=== PATIENT | male | born 1935 | race Caucasian/White ===

== ENCOUNTER 2018-01-02 15:18 | Inpatient (IN) | payer MEDICARE, OTHER ==
--- NOTE | 2018-01-02 15:26 | ED Physician Chart ---
ED Chief Complaint/HPI - Patient Information Date Seen:: 01/02/18 Time Seen:: 15:15 Chief Complaint:: Dyspnea History of Present Illness:: onset x one day of dyspnea, RUDD, orthopnea, and diaphoresis; pt denies trauma, H /As, S/T, neck pain, C/P, Abd. Pain, A/N/V/D/C, fever, chills, or urinary s/s Historian:: Patient, EMS Review:: Nurse's Note Reviewed, Old Chart Reviewed, EMS run form Reviewed ED Review of Systems - Review of Systems General/Constitutional: No fever, No chills, No weight loss, No weakness, No diaphoresis, No edema, No loss of appetite Skin: No skin lesions, No rash, No bruising Head: No headache, No light-headedness Eyes: No loss of vision, No pain, No diplopia ENT: No earache, No nasal drainage, No sore throat, No tinnitus Neck: No neck pain, No swelling, No thyromegaly, No stiffness, No mass noted Cardio Vascular: Chest pain, Palpitations, PND, orthopnea, edema Pulmonary: SOB, Cough, No sputum, Wheezing GI: No nausea, No vomiting, No diarrhea, No pain, No melena, No hematochezia, No constipation, No hematemesis G/U: No dysuria, No frequency, No hematuria, No nacturia Musculoskeletal: No bone or joint pain, No back pain, No muscle pain Endocrine: No polyuria, No polydipsia Psychiatric: No prior psych history, No depression, No anxiety, No suicidal ideation, No homicidal ideation, No auditory hallucination, No visual hallucination Hematopoietic: No bruising, No lymphadenopathy Allergic/Immuno: No urticaria, No angioedema Neurological: No syncope, No focal symptoms, No weakness, No paresthesia, No headache, No seizure, No dizziness, No confusion, No vertigo ED Past Medical History - Past Medical History Past Medical History: HTN, DM, CAD, CHF, Asthma/COPD, Dyslipidemia Family History: Heart disease, Diabetes Melitus, HTN Social History: Smoker, No Alcohol, No Drug Use, Surgical History: None Psychiatricy History: None Medication: Reviewed ED Physical Exam - Physical Examination General/Constitutional: Awake, Well-developed, well-nourished, Alert, No distress, GCS 15, Non-toxic appearing, Ambulatory Head: Atraumatic Eyes: Lids, conjuctiva normal, PERRL, EOMI Skin: Nl inspection, No rash, No skin lesions, No ecchymosis, Well hydrated, No lymphadenopathy ENMT: External ears, nose nl, TM canals nl, Nasal exam nl, Lips, teeth, gums nl , Oropharynx nl, Tonsils nl Neck: Nontender, Full ROM w/o pain, No JVD, No nuchal rigidity, No bruit, No mass, No stridor Respiratory: Nl effort/Exclusion Other Respiratory comments:: Lungs: + Rales and Rhonchi Cardio Vascular: RRR, No murmur, gallop, rubs, NL S1 S2, Carotid/Femoral/Distal pulses equal bilaterally GI: No tenderness/rebounding/guarding, No organomegaly, No hernia, Normal BS's, Nondistended, No mass/bruits, No McBurney tenderness, Rectum exam nl : No CVA tenderness Extremities: No tenderness or effusion, Full ROM, normal strength in all extremities, No edema, Normal digits & nails Neuro/Psych: Alert/oriented, DTR's symmetric, Normal sensory exam, Normal motor strength, Judgement/insight normal, Mood normal, Normal gait, No focal deficits Misc: Normal back, No paraspinal tenderness ED Labs/Radiology/EKG Results - Lab Results Comments:: WBC: 25.7; H/H: 10.5/30.5; Na+: 126; K+: 5.7; BUN: 74; Cr: 5.5; LA: 2.67 - Radiology Results Comments:: CXR: + CM; + Infiltrate; + CHF - EKG Interpretations EKG Time:: 15:27 Rate & Rhythm: 116; ST Comments:: Pacemaker Rhythm; non-specific st-t changes ED Septic Shock - . Is Septic Shock (SBP<90, OR Lactate>4 mmol\L) present?: No ED Reassessment (Disposition) - Reassessment Reassessment Condition:: Improved - Diagnosis Diagnosis:: Dx; Dyspnea; COPD; CHF; Pulmonary Edema; Sepsis; PNA; Leukocytosis; Hyperkalemia ; Hyponatremia; ESRD; Anemia; Hyperventilation - Aftercare/Follow up Instructions Aftercare/Follow-Up Instructions:: Counseled pt regarding lab results/diagnosis & need follow up, Counseled pt & family regarding lab results/diagnosis & need follow up - Patient Disposition Discharge/Transfer:: Acute Care w/in this hosp Accepting Physician:: Dr. Cabrera Time Called:: 1819 Time Responded:: 18:20 Admitted to:: ICU Spoke to:: Dr. Cabrera Admitting Medical Physician:: Dr. Cabrera Condition at Disposition:: Stable, Improved
[2018-01-02] MEDS ORDERED: Morphine Sulfate 2 mg/mL 1mL Syr IV STA (15:29)
[2018-01-02] MEDS ORDERED: NITROGLYCERIN OINT 2% 1 INCH PACKET TP STA (15:29)
[2018-01-02 15:54] LABS: EOSINOPHILE ABSOLUTE 0.1 Th/cmm (0.1-0.4); HEMATOCRIT 30.5 % (41.0-60); HEMOGLOBIN 10.5 gm/dL (12-16); LYMPHOCYTE ABSOLUTE 0.6 Th/cmm (1.5-3.0); MANUAL DIFF REQUIRED? YES; MEAN CELL VOLUME 89.3 fl (80-99); MEAN CORPUSCULAR HEMOGLOBIN 30.6 pg (27.0-31.0); MEAN CORPUSCULAR HGB CONC 34.3 pg (28.0-36.0); MEAN PLATELET VOLUME 7.6 fl; MONOCYTE ABSOLUTE 0.4 Th/cmm (0.3-1.0); NEUTROPHILE ABSOLUTE 24.6 Th/cmm (1.8-8.0); PLATELET COUNT 236 Th/cmm (150-400); RED BLOOD COUNT 3.42 Mil/cmm (3.80-5.80); RED CELL DISTRIBUTION WIDTH 13.6 % (11.5-20.0)
[2018-01-02 16:04] LABS: WHITE BLOOD COUNT 25.7 Th/cmm (4.8-10.8)
[2018-01-02 16:09] LABS: pH 7.49 (7.35-7.45)
[2018-01-02 16:13] LABS: ALB/GLOB RATIO 0.8 (1.0-1.8); ALBUMIN 2.8 gm/dL (4.2-5.5); ALKALINE PHOSPHATASE 70 U/L (34-104); ANION GAP 19.4 (7.0-16.0); BILIRUBIN,TOTAL 0.6 mg/dL (0.3-1.0); BUN - UREA NITROGEN 74 mg/dL (7-25); CALCIUM SERUM 8.2 mg/dL (8.6-10.3); CARBON DIOXIDE 24.3 mEq/L (21.0-31.0); CHLORIDE 88 mEq/L (98-107); CHOLESTEROL 113 mg/dL (<200); CREATININE KINASE 41 U/L (30-223); GLUCOSE 128 mg/dL (70-105); HDL -HIGH DENSITY LIPOPROTEIN 36 mg/dL (23-92); POTASSIUM SERUM 5.7 mEq/L (3.5-5.1); SGOT 16 U/L (13-39); SGPT/ALT 11 U/L (7-52); SODIUM SERUM 126 mEq/L (136-145); TOTAL PROTEIN,SERUM 6.2 gm/dL (6.0-8.3); TRIGLYCERIDES 96 mg/dL (<150)
[2018-01-02 16:25] LABS: CREATININE - SERUM 5.5 mg/dL (0.7-1.3)
[2018-01-02 16:31] LABS: BAND NEUTROPHILE 6 % (0-10); BASOPHIL 0 % (0-3); EOSINOPHIL 0 % (0-5); LYMPHOCYTE 4 % (20-50); MONOCYTE 1 % (2-10); NEUTROPHILS 89 % (40-80); TOTAL CELLS COUNTED 100
[2018-01-02 16:32] LABS: PLATELET ESTIMATE ADEQUATE (NORMAL)
[2018-01-02 16:35] LABS: DDIMER QUANT > 5000 ng/mL (100-400)
[2018-01-02] MEDS ORDERED: Levofloxacin 500mg/100mL 500 MG/100 ML BAG IV ONE ×2 (16:39→17:23)
[2018-01-02] MEDS ORDERED: Morphine Sulfate 4 mg/mL 1mL Syr ONE (17:23)
[2018-01-02] MEDS ORDERED: NITROGLYCERIN OINT 2% 1 INCH PACKET TP ONE (17:25)
[2018-01-02 18:22] LABS: INR 1.07 (0.5-1.4); PROTHROMBIN TIME (TEST) 11.1 SECONDS (9.5-11.5)
[2018-01-02] MEDS ORDERED: Potassium Chloride 40 MEQ, Lidocaine 1% 20mL Vial 25 MG in Sodium Chloride 0.9% 250 ML IV PRN (19:12)
[2018-01-02] MEDS ORDERED: Potassium Chloride 20 mEq ER Tab PO PRN (19:12)
[2018-01-02] MEDS ORDERED: Morphine Sulfate 2 mg/mL 1mL Syr IVP PRN (19:12)
[2018-01-02] MEDS ORDERED: Mag Sulfate 2gm/50mL Premix 2 GM/50 ML BAG IV PRN (19:12)
[2018-01-02] MEDS ORDERED: Albuterol Nebulizer 2.5mg/3mL HHN PRN (19:13)
[2018-01-02] MEDS ORDERED: D5-0.9%NS 1,000 ML IV SCH (19:15)
[2018-01-02] MEDS ORDERED: Norepinephrine 4 mg/4mL Vial IV ONE (20:21)
[2018-01-02] MEDS ORDERED: Piperacillin Sodium/Tazobact 2.25 gm Vial IV ONE (21:13)
[2018-01-02] MEDS: Piperacillin/Tazobact 2.25 gm in 0.9% NS 50 ML IV SCH (21:16)
[2018-01-03] MEDS: NIFEdipine 30 mg ER Tab PO SCH ×2 (00:23→22:31)
[2018-01-03] MEDS ORDERED: Norepinephrine 4 mg/4mL Vial IV ONE ×2 (03:50→04:08)
[2018-01-03 05:11] LABS: MANUAL DIFF REQUIRED? YES
[2018-01-03 05:23] LABS: HEMATOCRIT 30.4 % (41.0-60); HEMOGLOBIN 10.6 gm/dL (12-16); MEAN CELL VOLUME 88.7 fl (80-99); MEAN CORPUSCULAR HEMOGLOBIN 30.8 pg (27.0-31.0); MEAN CORPUSCULAR HGB CONC 34.7 pg (28.0-36.0); MEAN PLATELET VOLUME 8.1 fl; PLATELET COUNT 237 Th/cmm (150-400); RED BLOOD COUNT 3.43 Mil/cmm (3.80-5.80); RED CELL DISTRIBUTION WIDTH 13.8 % (11.5-20.0)
[2018-01-03 05:35] LABS: ANION GAP 15.9 (7.0-16.0); BUN - UREA NITROGEN 71 mg/dL (7-25); CHLORIDE 93 mEq/L (98-107); GLUCOSE 165 mg/dL (70-105); POTASSIUM SERUM 4.9 mEq/L (3.5-5.1); SODIUM SERUM 126 mEq/L (136-145)
[2018-01-03 05:37] LABS: CREATININE - SERUM 4.9 mg/dL (0.7-1.3)
[2018-01-03 06:07] LABS: BAND NEUTROPHILE 3 % (0-10); LYMPHOCYTE 6 % (20-50); MONOCYTE 1 % (2-10); NEUTROPHILS 90 % (40-80); PLATELET ESTIMATE ADEQUATE (NORMAL); TOTAL CELLS COUNTED 100
[2018-01-03] MEDS ORDERED: Piperacillin Sodium/Tazobact 2.25 gm Vial IV ONE (06:27)
[2018-01-03] MEDS: Piperacillin/Tazobact 2.25 gm in 0.9% NS 50 ML IV SCH ×3 (06:48→22:33)
--- NOTE | 2018-01-03 08:19 | Diagnostic Imaging Report ---
Exam: Portable chest x-ray HISTORY: Chest pain Findings: Portable examination of the chest at 1537 hours reviewed, the study correlated with the previous CT examination of the chest over 01/02/2018 demonstrates some pulmonary scarring bilaterally with superimposed pneumonia. There is no evidence for cardiomegaly. The aortic arch calcified. The costophrenic angles are clear. Distended bowel under the diaphragm appreciated bilaterally. Bony thorax remarkable for degenerative osteopenia. Left-sided pacemaker is noted. IMPRESSION 1. Bilateral interstitial infiltrates question of superimposed fibrosis and scarring follow-up exam is recommended.
--- NOTE | 2018-01-03 08:33 | Diagnostic Imaging Report ---
Exam: Ultrasound examination deep venous circulation lower extremities. HISTORY: DVT Findings: Real-time ultrasound exam of the lower extremities performed multiple planes utilizing color Doppler technique. The study demonstrates normal compressibility and augmentation of deep venous system throughout. IMPRESSION: No evidence of deep venous thrombosis lower extremities bilaterally.
--- NOTE | 2018-01-03 08:47 | Diagnostic Imaging Report ---
CT Chest without IV contrast HISTORY: Shortness of breath, rule out PE COMPARISON: Chest x-ray performed earlier the same day. Technique: Axial images were obtained from the base of the neck to the upper abdomen without IV contrast. Reconstructions are made. Total DLP 191, CTD I 6.5 Findings: Exam is nondiagnostic for pulmonary embolus as IV contrast was not administered. Assessment of the mediastinum is also limited due to lack of IV contrast. Left chest wall pacer apparatus is noted with leads in the region of the right atrium and right ventricle. Diffuse atherosclerotic vascular disease is noted. A retroesophageal aberrant right subclavian artery is noted. Heart size is normal. No evidence of pericardial effusion. Low lung volumes are noted. The lung baldwin demonstrate extensive interstitial lung disease with pulmonary fibrosis and areas of peripheral honeycombing. Areas of bronchiectasis are also noted. Small nodular opacities are seen throughout both lungs. No pleural effusions Degenerative changes of the spine are noted. Old sternal fracture is noted. IMPRESSION: Extensive chronic lung changes and pulmonary fibrosis with areas of honeycombing and bronchiectasis. Superimposed acute infiltrate cannot be completely excluded. Small sub-CM nodular opacities of the lungs probably related to underlying infectious or inflammatory process. Atherosclerotic vascular disease. Pacemaker. 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 If there is continued concern for pulmonary embolus either CT pulmonary angiogram study or, if the patient has renal failure, nuclear medicine VQ scan may be obtained for further assessment.
--- NOTE | 2018-01-03 08:53 | Diagnostic Imaging Report ---
CT abdomen and pelvis without intravenous contrast Indication: Abdominal pain Comparison: CT chest the same day, Technique: Axial images were obtained from the lung bases to the bilateral proximal femurs without IV contrast. Coronal reconstructions were made. total DLP: 512, CTDI10.1 FINDINGS: Assessment of solid organs is limited due to lack of IV contrast. Interposed bowel large bowel loops are seen underlying the hemidiaphragms. No evidence of focal hepatic lesions. No radiopaque gallstones identified. No focal splenic lesions. No focal pancreatic or adrenal lesions. 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 Bilateral perinephric inflammatory changes are seen with small amount of fluid tracking bilateral retroperitoneal regions inferiorly. There is mild bilateral hydronephrosis. No radiopaque renal stones identified. Severely distended urinary bladder is seen with pockets of gas along the anterior aspect. Enlarged prostate gland is noted measuring 6.7 x 5 cm. Glez catheter is seen with balloon malpositioned within the prostatic urethra. Mild inflammatory changes of the posterior pelvis including the presacral region is seen with trace free fluid in this region also noted. There is moderate stool throughout the colon. Nonspecific gas-filled loops of bowel are noted. Appendix is not visualized. Trace free fluid is seen surrounding the urinary bladder. Small fat-containing right inguinal hernia is noted. Diffuse atherosclerotic vascular disease is noted with tortuous aorta. Advanced degenerative changes spine noted. Degenerate changes of the pelvis are also noted. Anasarca noted. IMPRESSION: Malpositioned Glez catheter balloon with balloon inflated in the prostatic urethra. Recommend removal. There is associated severe distention of the urinary bladder with small pockets of gas along the anterior aspect of the urinary bladder. Enlarged prostate gland, please correlate with clinical history. Mild bilateral hydronephrosis and bilateral perinephric inflammatory changes likely related to obstructive process and distended urinary bladder secondary to patient's malpositioned Glez catheter. Surrounding inflammatory changes and trace fluid is seen along the bilateral retroperitoneal regions tracking inferiorly. Small amount of free fluid the pelvis and mild inflammatory changes of presacral region. 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 Please with clinical findings and old exams. If indicated short-term follow-up exams with IV contrast may be obtained for further assessment. Anasarca.
--- NOTE | 2018-01-03 11:52 | History & Physical ---
ADMIT DATE: 01/02/2018 CHIEF COMPLAINT: Lethargy, weakness, and decreased blood pressure. HISTORY OF PRESENT ILLNESS: The patient is a pleasant 82-year-old male. He is a patient [facility] at [facility]. He was found to have severe weakness yesterday along with fevers, decreased appetite and very low blood pressure, 911 was called and he presented to the ER where he was found to have acute respiratory failure and septic shock. PAST MEDICAL HISTORY: Significant for constipation, COPD, hypertension, dyslipidemia, and BPH. SOCIAL HISTORY: No history of alcohol, tobacco, or drug abuse. FAMILY HISTORY: Noncontributory. ALLERGIES: No known drug allergies. SURGICAL HISTORY: No recent surgeries. REVIEW OF SYSTEMS: GENERAL: Positive recent fatigue, decreased appetite and overall weakness. HEENT: No recent head trauma; change in vision, taste, hearing, or smell. Oral: No recent pain or discharge. NECK: No recent tracheal deviation. ABDOMEN: Positive for recent distention, but markedly improved after Glez was inserted. GENITOURINARY: Positive for recent Glez catheter and severe urinary retention. EXTREMITIES: No recent edema. PSYCHIATRIC: No history of psychosis or hallucinations. ENDOCRINE: No history of diabetes or hypothyroidism. SKIN: No recent rashes. RESPIRATORY: Positive history of COPD and increased shortness of breath recently. PHYSICAL EXAMINATION: VITAL SIGNS: Latest temperature was 98.8 degrees, heart rate is 91, respirations are 18, blood pressure 132/68, and currently in no pain. GENERAL: No acute distress. He is awake, pleasant, slightly confused. HEENT: No acute issues. NECK: Trachea is midline. No JVD. CARDIOVASCULAR: Regular rate and rhythm. ABDOMEN: Slightly distended, but bowel sounds are present. His distention has significantly improved from yesterday. GENITOURINARY: He had 1.2 liters of urine output after the Glez was reinserted. He is feeling much better now. No hematuria. EXTREMITIES: No edema. RESPIRATORY: Decreased breath sounds bilaterally with rales and congestion. NEUROLOGIC: No evidence of acute stroke or seizure activity. MUSCULOSKELETAL: Decreased muscle strength in lower extremities. LABORATORY DATA AND DIAGNOSTIC STUDIES: CT of the chest, abdomen and pelvis shows pulmonary fibrosis with possible pneumonia; malpositioned Glez catheter with balloon in the prostatic urethra, recommended removal; markedly enlarged prostate gland and a distended bladder, pockets of gas in the bladder, clinical correlation. Bilateral venous Doppler shows no DVT. Sodium 126, potassium 4.9, chloride of 93, bicarb 22, BUN 71, creatinine 4.9, glucose 165, lactic acid went from 2.67-1.38, calcium is 8.0. White count is 32, hemoglobin is 10.6, and platelet count is 237,000. ASSESSMENT: 1. Septic shock. 2. Aspiration pneumonia. 3. Vasomotor nephropathy. 4. Anemia of chronic illness. 5. Acute urinary retention. 6. Acute respiratory failure. 7. Hyponatremia. PLAN: The patient had Glez removed and re-inserted and was able to get 1.2 liters of urine out. Dr. Blount has been consulted for Urology and he is on vancomycin and Zosyn. The patient's lactic acid has normalized; however, the white count is still very elevated. ID and Pulmonary has been consulted. CT of the chest has been done along with a bilateral venous Doppler as well. He is on heparin for deep venous thrombosis prophylaxis. Continue breathing treatments. He is on Levophed drip right now. Prognosis is guarded. He is in the ICU. JOB# [id number]
--- NOTE | 2018-01-03 14:04 | Consultation ---
Consult Note - Consult Note Service Date: 01/03/18 Referring Physician: Dayan Choudhary Consult Note: PHYSICIAN Consultation Note: Date of Admission: 01/02/18 Purpose of Consultation: sepsis. septic shock. Chief Complaint: Patient EDUARDO SAMAYOA was admitted to location Intensive Care Unit with PULMONARY EDEMA PNEUMONIA, HYPONATREMIA, ACUTE RIKY. History of Present Illness: 82-year-old male with history of COPD, hypertension , BPH, dyslipidemia brought to the ER from nursing facility for fever, chills and associated hypotension. On initial evaluation, his temperature was 98.6 Fahrenheit and WBC count was 25,700. He was found to have pneumonia with septic shock. Vancomycin IV and Zosyn was started. Patient has received Levaquin also. Infectious disease consultation was called. Blood culture, at the time of admission grew gram-positive cocci. ID consultation was called for further antibiotic management. Past Medical History: COPD, hypertension, BPH, dyslipidemia. Allergies Allergy/AdvReac Type Severity Reaction Status Date / Time No Known Allergies Allergy Verified 01/02/18 16:47 Vital Signs Temp 98.8 F 01/03/18 04:00 Pulse 85 01/03/18 07:27 Resp 20 01/03/18 07:27 BP 132/68 01/03/18 06:30 Pulse Ox 97 01/03/18 07:27 Intake & Output 01/02/18 01/03/18 01/03/18 18:59 06:59 18:59 Intake Total 1100.786 Output Total 2900 Balance -1799.214 Weight (lbs) 68.266 kg Intake: Intake, IV Amount 1050.786 D5-0.9%Ns 1,000 ml @ 75 676.25 mls/hr IV .[id number] [facility] Rx #:[id number] Levofloxacin 500mg/100mL 100 500 mg In 100 ml @ 100 mls/hr IV X1 ONE Rx#: [id number] Norepinephrine 4 mg In 224.536 Dextrose 5% 250 ml @ 8 MCG/MIN 30.48 mls/hr IV TITR PRN Rx#:[id number] Piperacillin Sodium/ 50 Tazobact 2.25 gm In Sodium Chloride 0.9% 50 ml @ 100 mls/hr IV Q8HR [facility] Rx#:[id number] Oral 50 Output: Urine 2900 Other: # Bowel Movements 0 Weight Source Bedscale Laboratory Results - last 24 hr 01/02/18 01/03/18 01/03/18 23:27 00:32 05:03 WBC 32.0 H* RBC 3.43 L Hgb 10.6 L Hct 30.4 L MCV 88.7 MCH 30.8 MCHC Differential 34.7 RDW 13.8 Plt Count 237 MPV 8.1 Band Neutrophils % 3 Neutrophils (Manual) 90 H Lymphocytes 6 L Monocytes 1 L Platelet Estimate ADEQUATE Sodium Potassium Chloride Carbon Dioxide Anion Gap BUN Creatinine Est GFR ( Amer) Est GFR (Non-Af Amer) BUN/Creatinine Ratio Glucose POC Glucose 179 H Whole Bld Lactic Acid 2.14 H* Calcium 01/03/18 01/03/18 05:03 05:03 WBC RBC Hgb Hct MCV MCH MCHC Differential RDW Plt Count MPV Band Neutrophils % Neutrophils (Manual) Lymphocytes Monocytes Platelet Estimate Sodium 126 L Potassium 4.9 Chloride 93 L Carbon Dioxide 22.0 Anion Gap 15.9 BUN 71 H Creatinine 4.9 H* Est GFR ( Amer) TNP Est GFR (Non-Af Amer) TNP BUN/Creatinine Ratio 14.5 Glucose 165 H POC Glucose Whole Bld Lactic Acid 1.38 Calcium 8.0 L Home Medication Medication Instructions Recorded Type Acetaminophen [Tylenol] 650 mg PO Q6HR PRN 01/02/18 History Albuterol Nebulizer 2.5mg/3mL 2.5 mg IH Q6HR PRN 01/02/18 History [Albuterol Neb UD*] Albuterol Sulfate [Proair Hfa] 2 puff IH Q6H PRN 01/02/18 History Ascorbic Acid [Vitamin C] 500 mg PO DAILY 01/02/18 History Docusate Sodium [Dok] 100 mg PO DAILY 01/02/18 History Losartan Potassium [Cozaar] 100 mg PO DAILY 01/02/18 History Magnesium Hydroxide [Milk of 30 ml PO Q24H PRN 01/02/18 History Magnesia] Metoprolol Succinate 50 mg PO DAILY 01/02/18 History Multivitamin w/ Minerals 1 tab PO DAILY 01/02/18 History [Theragran M] Nifedipine [Nifedipine ER] 30 mg PO Q24H 01/02/18 History Phenyleph/Pramoxin/Glycr/W.pet 1 unit RC Q12H PRN 01/02/18 History [Preparation H Cream] Pravastatin Sodium 20 mg PO HS 01/02/18 History Tamsulosin [Flomax] 0.4 mg PO HS 01/02/18 History Current Medications Generic Name Dose Route Start Last Admin Trade Name Freq PRN Reason Stop Dose Admin Acetaminophen 650 mg 01/02/18 19:12 Tylenol PO 03/03/18 19:11 Q6H PRN HEADACHE/TEMP ABOVE 100F Albuterol Sulfate 2.5 mg 01/03/18 18:00 Albuterol 2.5mg/3ml Neb Ud HHN 03/04/18 17:59 Q6HR [facility]ID[facility] Budesonide 0.5 mg 01/03/18 19:00 Pulmicort HHN 03/04/18 18:59 BIDRT [facility] Heparin Sodium (Porcine) 5,000 units 01/02/18 21:00 01/03/18 09:00 Heparin SUBQ 03/03/18 20:59 5,000 units Q12HR [facility] Administration Dextrose/Sodium Chloride 1,000 mls @ 75 mls/hr 01/02/18 19:15 01/03/18 06:26 D5-0.9%Ns IV 03/03/18 19:14 75 mls/hr .[id number] [facility] Infusion Potassium Chloride 40 meq/ 272.5 mls @ 68 mls/hr 01/02/18 19:12 Lidocaine HCl 25 mg/ Sodium IV 03/03/18 19:11 Chloride DAILY PRN k level less than 3.2 Magnesium Sulfate 2 gm in 50 mls @ 25 mls/hr 01/02/18 19:12 Magnesium Sulfate Premix IV 03/03/18 19:11 DAILY PRN Magnesium level less than 1.6 Piperacillin Sod/Tazobactam 50 mls @ 100 mls/hr 01/02/18 21:00 01/03/18 06:48 Sod 2.25 gm/ Sodium Chloride IV 03/03/18 20:59 100 mls/hr Q8HR LID[facility] Administration Norepinephrine Bitartrate 4 mg 254 mls @ 30.48 mls/hr 01/02/18 20:16 03:56 / Dextrose IV 03/03/18 20:15 8 mcg/min TITR PRN 30.48 mls/hr BP MAINTENANCE (PER PROTOCOL) Administration Protocol 8 MCG/MIN Lorazepam 1 mg 01/02/18 19:12 Ativan IVP 05/27/18 19:11 Q4HR PRN Anxiety Protocol Magnesium Oxide 400 mg 01/02/18 19:12 Mag-Oxide PO 03/03/18 19:11 BID PRN Mg less than 1.9 Miscellaneous 1 ea 01/02/18 19:11 Vancomycin Iv Per Pharmacy 03/03/18 19:10 PRN PRN PROTOCOL Miscellaneous 1 ea 01/02/18 19:12 Zosyn Iv Per Pharmacy 03/03/18 19:11 PRN PRN PROTOCOL Morphine Sulfate 1 mg 01/02/18 19:12 Morphine IVP 03/03/18 19:11 Q4HR PRN Severe Pain Nifedipine 30 mg 01/02/18 19:15 01/03/18 00:23 Procardia Xl PO 03/03/18 19:14 Not Given Q24H [facility] Ondansetron HCl 4 mg 01/02/18 19:12 Zofran IVP 03/03/18 19:11 Q6H PRN Nausea / Vomiting Potassium Chloride 40 meq 01/02/18 19:12 Klor-Con PO 03/03/18 19:11 DAILY PRN k level less than 3.5 Simvastatin 10 mg 01/02/18 21:00 01/03/18 00:17 Zocor PO 03/03/18 20:59 10 mg HS L[facility] Administration Tamsulosin HCl 0.4 mg 01/02/18 21:00 01/03/18 00:19 Flomax PO 03/03/18 20:59 0.4 mg HS [facility] Administration Zolpidem Tartrate 10 mg 01/02/18 19:12 Ambien PO 03/03/18 19:11 HS PRN Insomnia Review of Systems: A 12 point ROS was reviewed with the pertinent positive and negatives noted in the HPI. Gen.: Head developed fever at nursing facility. Currently a febrile. Generalized with this patient. HEENT: Denies any diplopia photophobia also throat. Respiratory: Patient denies any cough or shortness of breath. Denies any wheezing. CVS: Patient denies chest pain, palpitation. GI: Patient denies any nausea, vomiting, diarrhea. : Patient denies any dysuria, hematuria. 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 Skin: No hives nor rash. Social History Lives at nursing facility. Smoking Status Never smoker Physical Exam: General: Comfortable, not in acute distress. Well-nourished well-developed. HEENT: Head: Normocephalic, atraumatic. Oral cavity: Moist, pink tongue. Eyes : Pupil PERRLA, EOMI. There is no pallor and no icterus. Neck: Supple, no JVD, and is no use of accessory neck muscles. Cardio: S1 and S2 within normal limits regular rhythm no murmur no gallop. Respiratory: Vesicular breath sound, no crackles no wheezing. Abdominal: Soft, nontender, nondistended, bowel sounds present. Genital/Urinary: Deferred. Glez catheter draining clear urine. Extremities: No cyanosis, no clubbing, no edema. Neurological: Alert, awake, oriented 3. There is no focal neuro deficit. Assessment: 1. Septic shock. Severe sepsis. The lactic acidosis and hypotension. Sepsis. 2. Pneumonia. 3. UTI. Complicated with hydronephrosis. Pyelonephritis. 4. Staphylococcal sepsis. 5. BPH. 6. Pulmonary fibrosis [as per CT scan chest report]. 7. History of hypertension, currently hypotensive receiving Levophed. 8. History of COPD. 9. History of dyslipidemia. 10. Acute renal failure, likely obstructive uropathy. Plan: Continue vancomycin and Zosyn. Follow the blood culture report and go from there. Meanwhile, check 2-D echocardiogram. Check repeat blood culture. Provide fluid support and the vasopressor support. Thank you, Dr. Choudhary, for involving me in taking care of this patient. Signed, Jerel Plascencia M.D. [id number] 98.6F
--- NOTE | 2018-01-03 16:41 | Consultation ---
Consult Note - Consult Note Service Date: 01/03/18 Consult Note: PHYSICIAN Consultation Note: Date of Admission: 01/02/18 Purpose of Consultation: Chief Complaint: History of Present Illness: Patient EDUARDO SAMAYOA was admitted to location Intensive Care Unit with PULMONARY EDEMA PNEUMONIA, HYPONATREMIA, ACUTE RIKY. 82 YEAR OLD MALE WITH BPH HAD UAMÑA PLACED . PT ADMITTED WITH ARF AND SEPSIS CT SCAN SHOWED UMAÑA IN THE WRONG PLACE UMAÑA HAS BEEN REPLACE Past Medical History: COPD HTN ANEMIA BPH Allergies Allergy/AdvReac Type Severity Reaction Status Date / Time No Known Allergies Allergy Verified 01/02/18 16:47 Vital Signs Temp 97.6 F 01/03/18 12:00 Pulse 88 01/03/18 15:00 Resp 18 01/03/18 15:00 BP 121/63 01/03/18 15:00 Pulse Ox 97 01/03/18 15:00 Intake & Output 01/02/18 01/03/18 01/03/18 18:59 06:59 18:59 Intake Total 1100.786 304 Output Total 2900 Balance -1799.214 304 Weight (lbs) 68.266 kg Intake: Intake, IV Amount 1050.786 304 D5-0.9%Ns 1,000 ml @ 75 676.25 mls/hr IV .[id number] [facility] Rx #:[id number] Levofloxacin 500mg/100mL 100 500 mg In 100 ml @ 100 mls/hr IV X1 ONE Rx#: [id number] Norepinephrine 4 mg In 224.536 254 Dextrose 5% 250 ml @ 8 MCG/MIN 30.48 mls/hr IV TITR PRN Rx#:[id number] Piperacillin Sodium/ 50 50 Tazobact 2.25 gm In Sodium Chloride 0.9% 50 ml @ 100 mls/hr IV Q8HR [facility] Rx#:[id number] Oral 50 Output: Urine 2900 Other: # Bowel Movements 0 Weight Source Bedscale Laboratory Results - last 24 hr 01/02/18 01/03/18 01/03/18 23:27 00:32 05:03 WBC 32.0 H* RBC 3.43 L Hgb 10.6 L Hct 30.4 L MCV 88.7 MCH 30.8 MCHC Differential 34.7 RDW 13.8 Plt Count 237 MPV 8.1 Band Neutrophils % 3 Neutrophils (Manual) 90 H Lymphocytes 6 L Monocytes 1 L Platelet Estimate ADEQUATE Sodium Potassium Chloride Carbon Dioxide Anion Gap BUN Creatinine Est GFR ( Amer) Est GFR (Non-Af Amer) BUN/Creatinine Ratio Glucose POC Glucose 179 H Whole Bld Lactic Acid 2.14 H* Calcium 01/03/18 01/03/18 05:03 05:03 WBC RBC Hgb Hct MCV MCH MCHC Differential RDW Plt Count MPV Band Neutrophils % Neutrophils (Manual) Lymphocytes Monocytes Platelet Estimate Sodium 126 L Potassium 4.9 Chloride 93 L Carbon Dioxide 22.0 Anion Gap 15.9 BUN 71 H Creatinine 4.9 H* Est GFR ( Amer) TNP Est GFR (Non-Af Amer) TNP BUN/Creatinine Ratio 14.5 Glucose 165 H POC Glucose Whole Bld Lactic Acid 1.38 Calcium 8.0 L Home Medication Medication Instructions Recorded Type Acetaminophen [Tylenol] 650 mg PO Q6HR PRN 01/02/18 History Albuterol Nebulizer 2.5mg/3mL 2.5 mg IH Q6HR PRN 01/02/18 History [Albuterol Neb UD*] Albuterol Sulfate [Proair Hfa] 2 puff IH Q6H PRN 01/02/18 History Ascorbic Acid [Vitamin C] 500 mg PO DAILY 01/02/18 History Docusate Sodium [Dok] 100 mg PO DAILY 01/02/18 History Losartan Potassium [Cozaar] 100 mg PO DAILY 01/02/18 History Magnesium Hydroxide [Milk of 30 ml PO Q24H PRN 01/02/18 History Magnesia] Metoprolol Succinate 50 mg PO DAILY 01/02/18 History Multivitamin w/ Minerals 1 tab PO DAILY 01/02/18 History [Theragran M] Nifedipine [Nifedipine ER] 30 mg PO Q24H 01/02/18 History Phenyleph/Pramoxin/Glycr/W.pet 1 unit RC Q12H PRN 01/02/18 History [Preparation H Cream] Pravastatin Sodium 20 mg PO HS 01/02/18 History Tamsulosin [Flomax] 0.4 mg PO HS 01/02/18 History Current Medications Generic Name Dose Route Start Last Admin Trade Name Freq PRN Reason Stop Dose Admin Acetaminophen 650 mg 01/02/18 19:12 Tylenol PO 03/03/18 19:11 Q6H PRN HEADACHE/TEMP ABOVE 100F Albuterol Sulfate 2.5 mg 01/03/18 18:00 Albuterol 2.5mg/3ml Neb Ud N 03/04/18 17:59 Q6HR [facility] Budesonide 0.5 mg 01/03/18 19:00 Pulmicort [facility] 03/04/18 18:59 BIDRT [facility] Heparin Sodium (Porcine) 5,000 units 01/02/18 21:00 01/03/18 09:00 Heparin SUBQ 03/03/18 20:59 5,000 units Q12HR [facility] Administration Dextrose/Sodium Chloride 1,000 mls @ 75 mls/hr 01/02/18 19:15 01/03/18 06:26 D5-0.9%Ns IV 03/03/18 19:14 75 mls/hr .[id number] [facility] Infusion Potassium Chloride 40 meq/ 272.5 mls @ 68 mls/hr 01/02/18 19:12 Lidocaine HCl 25 mg/ Sodium IV 03/03/18 19:11 Chloride DAILY PRN k level less than 3.2 Magnesium Sulfate 2 gm in 50 mls @ 25 mls/hr 01/02/18 19:12 Magnesium Sulfate Premix IV 03/03/18 19:11 DAILY PRN Magnesium level less than 1.6 Piperacillin Sod/Tazobactam 50 mls @ 100 mls/hr 01/02/18 21:00 01/03/18 14:17 Sod 2.25 gm/ Sodium Chloride IV 03/03/18 20:59 100 mls/hr Q8HR [facility] Administration Norepinephrine Bitartrate 4 mg 254 mls @ 30.48 mls/hr 01/02/18 20:16 13:00 / Dextrose IV 03/03/18 20:15 8 mcg/min TITR PRN 30.48 mls/hr BP MAINTENANCE (PER PROTOCOL) Administration Protocol 8 MCG/MIN Lorazepam 1 mg 01/02/18 19:12 Ativan IVP 03/03/18 19:11 Q4HR PRN Anxiety Protocol Magnesium Oxide 400 mg 01/02/18 19:12 Mag-Oxide PO 03/03/18 19:11 BID PRN Mg less than 1.9 Miscellaneous 1 ea 01/02/18 19:11 Vancomycin Iv Per Pharmacy 03/03/18 19:10 PRN PRN PROTOCOL Miscellaneous 1 ea 01/02/18 19:12 Zosyn Iv Per Pharmacy 03/03/18 19:11 PRN PRN PROTOCOL Morphine Sulfate 1 mg 01/02/18 19:12 Morphine IVP 03/03/18 19:11 Q4HR PRN Severe Pain Nifedipine 30 mg 01/02/18 19:15 01/03/18 00:23 Procardia Xl PO 03/03/18 19:14 Not Given Q24H [facility] Ondansetron HCl 4 mg 01/02/18 19:12 Zofran IVP 03/03/18 19:11 Q6H PRN Nausea / Vomiting Potassium Chloride 40 meq 01/02/18 19:12 Klor-Con PO 03/03/18 19:11 DAILY PRN k level less than 3.5 Simvastatin 10 mg 01/02/18 21:00 01/03/18 00:17 Zocor PO 03/03/18 20:59 10 mg HS [facility] Administration Tamsulosin HCl 0.4 mg 01/02/18 21:00 01/03/18 00:19 Flomax PO 03/03/18 20:59 0.4 mg HS [facility] Administration Zolpidem Tartrate 10 mg 01/02/18 19:12 Ambien PO 03/03/18 19:11 HS PRN Insomnia Review of Systems: A 12 point ROS was reviewed with the pertinent positive and negatives noted in the HPI. Social History Smoking Status Never smoker Physical Exam: General: HEENT: LAYA Neck: SUPPLE Cardio: S1S2 Respiratory: B/L RHONCHI Abdominal: SOFT NT ND Genital/Urinary: Extremities: NO EDEMA Neurological: Assessment: ARF SEPSIS UTI OBSTRUCTIVE UROPATHY COPD BPH HTN Plan: KEEP UMAÑA IN PLACE IVF IV ABX CHECK LABS IN AM Caitlyn Swann Farhad, M.D. [id number]
--- NOTE | 2018-01-03 18:05 | Consultation ---
DATE OF CONSULTATION: 01/03/2018 UROLOGY CONSULTATION REASON FOR CONSULTATION: Seen for bilateral hydronephrosis, renal failure, and urinary retention. HISTORY OF PRESENT ILLNESS: The patient is an 82-year-old who came in with abdominal pain and some difficulty breathing, coughing, and wheezing. He was found to have possibly pneumonia versus congestive heart failure as well as urinary retention. Glez was placed initially in the prostatic fossa, then repositioned in the bladder with more than 1000 mL drained quickly and diuresing since then. Creatinine was markedly elevated and is now gradually coming down. The patient denies past history of frequency, urgency, retention, infection, or hematuria; however, this is not very reliable history at this point since he is in the ICU and quite ill. He denies urologic surgery as well. PAST SURGICAL HISTORY: Appendectomy and nose bleed related operation. Also, history of pacemaker insertion. MEDICAL HISTORY: Positive for diabetes and hypertension. He also has hyperlipidemia. History of coronary artery disease and congestive heart failure as well as pacemaker status. History of asthma and COPD related to past history of smoking. SOCIAL HISTORY: Apparently, he lives at home with his daughter, Odette. No drug or tobacco use, but was a smoker. REVIEW OF SYSTEMS: No fever, weight loss, headache, or seizures. Denies vision changes or sore throat. Did complain of chest discomfort, shortness of breath, and wheezing and coughing. Abdominal pain located to the lower abdomen improved after the Glez was placed. No nausea, vomiting, diarrhea. Urologic as mentioned earlier. Skin seems to have beginning of a bedsore in the sacral area and over the scrotum as well. PHYSICAL EXAMINATION: GENERAL: On exam, he is an elderly, very frail, slightly under nourished in the ICU, very weak. Heart rate 85 with a pacemaker rhythm and last temperature recorded is 98.8. No fever was recorded here. Blood pressure 132/68 without any support. HEAD AND NECK: Normocephalic. Trachea central. Pupils equal and reactive. No jaundice. Thyroid and lymph nodes not palpable. Carotid bruit absent. CHEST: Symmetrical. LUNGS: Wheezing and occasional crackles. Breath sounds heard bilaterally, somewhat distant. HEART: Heart sounds, sinus rhythm, no murmur. ABDOMEN: Soft, nontender, nondistended. No organomegaly, mass, or hernia. GENITALIA: Normal male. No scrotal masses. Skin over the scrotum is thinned out and seems to be breaking down in the very early phase stages. Meatus adequate. Glez catheter draining clear light yellow urine. RECTAL: Stage I bedsore around the sacral area. Sphincter tone reduced. Prostate is located high up, but palpable and moderately enlarged, maybe about 40 grams, smooth and benign. No nodule or tenderness. EXTREMITIES: No edema or lymphadenopathy. Some bruises around the skin. NEUROLOGIC: Nonfocal. He is able to answer questions appropriately. Overall, generalized weakness. LABORATORY DATA: White count was 25.7 yesterday, today 32, hemoglobin 10.6, platelets adequate. There were 6 bands yesterday, 3 today and significant left shift. PT, PTT are normal. D-dimer elevated to 5000 and more. Sodium 126, potassium elevated to 5.7, come down to 4.9 today, chloride down to 93 and the BUN was up to 74, now 71, creatinine was 5.5, now 4.9 with overnight Glez drainage. Glucose 165. Lactic acid was 2.6, now down to 1.3, calcium 8.0. Liver functions are normal. Albumin reduced to 2.8. CT scan shows mild bilateral hydronephrosis and hydroureter with distended bladder with the catheter in the prostatic fossa. There is bilateral perinephric stranding as well indicating possibly inflammation or infection in and around the kidneys. 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 Most likely, I do not see any other evidence for obstruction. His home medications include Tylenol, inhalers, losartan, metoprolol, nifedipine, pravastatin, and Flomax. Glez catheter drainage should improve the renal function and infection if it has not been present for a long time. Subsequently, a cystoscopy and possible TURP can be considered if the patient is medically fit and low risk for the procedure. Until then, would adjust antibiotics according to cultures. Continue hydration and supportive treatment. Other risk factors and medical conditions include hypertension, COPD, coronary artery disease, congestive heart failure, hyperlipidemia, diabetes that was mentioned earlier, does not seem to be one of his medical issues. Discussed with nurses and referring doctors. JOB# [id number]
[2018-01-03 20:06] LABS: A1C % 6.5 % (4.0-6.0)
[2018-01-03] MEDS: Budesonide 0.5 Mg/2 mL Ud HHN SCH (20:22)
[2018-01-03] MEDS: Albuterol Nebulizer 2.5mg/3mL HHN SCH (20:22)
[2018-01-04] MEDS: Albuterol Nebulizer 2.5mg/3mL HHN SCH ×4 (00:35→19:59)
--- NOTE | 2018-01-04 02:06 | Consultation ---
DATE OF CONSULTATION: 01/03/2018 Thank you very much, Dr. Choudhary for this consultation. The patient is an 82-year-old pleasant male who was recently treated with pneumonia and was in the [facility], was sent for a couple of weeks. The patient was then admitted to a [facility]. He has the Glez and he was having hard time peeing and was getting worse abdominal distention. The Glez was not in the right place when he came here and Glez was changed. The patient is feeling much better. According to the family, for the last 3 days, he has not been eating or looking well and was vomiting and had some shortness of breath on top of that. The patient's breathing has improved. He said he has oxygen at home. He has history of pulmonary fibrosis for many years. He has an inhaler, does not remember the name of it. He denies any shortness of breath now and cough at rest. PAST MEDICAL HISTORY: As above. SOCIAL HISTORY: Denies smoking, drinking, or drug use. REVIEW OF SYSTEMS: GENERAL: Awake and alert. Some weakness and fatigue. CARDIOVASCULAR: No chest pain. RESPIRATORY: Shortness of breath improved. GASTROINTESTINAL: Has nausea and vomiting, but improved. Abdominal distention as well. : Dysuria. examination. PHYSICAL EXAMINATION: VITAL SIGNS: Temperature 98.8, pulse is 85, respirations 71, blood pressure 132/68, and saturation 97%. HEENT: Atraumatic and normocephalic. Pupils react to light and accommodation. Ears, nose, and throat normal. NECK: Supple. No JVD. CHEST: There are good breath sounds, but scattered rales in bases. HEART: Regular. ABDOMEN: Soft. EXTREMITIES: No edema. LABORATORY DATA AND DIAGNOSTIC STUDIES: WBC is 32.0, hemoglobin 10.6, hematocrit 30.4, and platelets is 237. ABGs yesterday ____ pH 7.49, pCO2 32, pO2 262, bicarbonate 26, and saturation 100%. Sodium is 126, potassium 4.9, BUN is 71, and creatinine 4.9. CT showed bronchiectasis and pulmonary fibrosis changes. IMPRESSION: 1. An 82-year-old male with history of known pulmonary fibrosis, appears to have some bronchiectasis as well. 2. Chronic respiratory failure with hypoxemia, now coming with acute renal failure, hydronephrosis, and urinary retention, possibly with urinary tract infection as well. PLAN: 1. IV fluids. 2. Renal and possibly Urology followup. 3. Nebulizer treatment. 4. Antibiotics. Get the urine culture and UA. Follow up renal function closely and we will follow the patient with you. Thank you very much for this consultation. JOB# [id number]
[2018-01-04 05:08] LABS: % BASOPHILS 0.5 % (0.0-2.0); % EOSINOPHILS 6.9 % (0.0-5.0); % LYMPHOCYTES 12.4 % (20.0-50.0); % MONOCYTES 6.7 % (2.0-10.0); % NEUTROPHILS 73.5 % (40.0-80.0); BASOPHILE ABSOLUTE 0.1 Th/cumm (0-0.2); EOSINOPHILE ABSOLUTE 1.1 Th/cmm (0.1-0.4); HEMATOCRIT 27.1 % (41.0-60); MEAN CELL VOLUME 90.5 fl (80-99); MEAN CORPUSCULAR HGB CONC 33.2 pg (28.0-36.0); MEAN PLATELET VOLUME 7.8 fl; MONOCYTE ABSOLUTE 1.1 Th/cmm (0.3-1.0); NEUTROPHILE ABSOLUTE 12.1 Th/cmm (1.8-8.0); PLATELET COUNT 224 Th/cmm (150-400); RED BLOOD COUNT 2.99 Mil/cmm (3.80-5.80); RED CELL DISTRIBUTION WIDTH 13.7 % (11.5-20.0)
[2018-01-04 05:10] LABS: WHITE BLOOD COUNT 16.4 Th/cmm (4.8-10.8)
[2018-01-04 05:37] LABS: ANION GAP 10.1 (7.0-16.0); BUN - UREA NITROGEN 43 mg/dL (7-25); CALCIUM SERUM 7.7 mg/dL (8.6-10.3); CARBON DIOXIDE 27.4 mEq/L (21.0-31.0); CHLORIDE 99 mEq/L (98-107); GLUCOSE 210 mg/dL (70-105); POTASSIUM SERUM 3.5 mEq/L (3.5-5.1); SODIUM SERUM 133 mEq/L (136-145)
[2018-01-04] MEDS: D5-0.9%NS 1,000 ML IV SCH ×3 (06:00→22:42)
[2018-01-04] MEDS: Piperacillin/Tazobact 2.25 gm in 0.9% NS 50 ML IV SCH ×2 (06:05→17:41)
[2018-01-04] MEDS: Budesonide 0.5 Mg/2 mL Ud HHN SCH ×2 (06:59→19:59)
--- NOTE | 2018-01-04 09:28 | General Progress Note ---
Subjective - Review of Systems Service Date: 01/04/18 Subjective: Pt seen and eval. More awake and alert today. Making jokes. No n,v,d or cp. Dr. Blount saw pt on 01/03/18 and checked on the shannon. Pt has good urine output. He's on Vanco and Zosyn. Blood cx positive for gram pos cocci in clusters. No fevers right now. On Levophed at 6 mcg today, down from 8 mcg yesterday. No headaches. Has some confusion, but improved from yesterday. No difficulty swallowing. Eating now. No abd pain. No sob at rest. No dysuria right now. No psychosis. Objective - Results Result Diagrams: 01/04/18 04:37 01/04/18 04:37 Recent Labs: Laboratory Last Values WBC 16.4 Th/cmm (4.8-10.8) H D 01/04/18 04:37 RBC 2.99 Mil/cmm (3.80-5.80) L 01/04/18 04:37 Hgb 9.0 gm/dL (12-16) L 01/04/18 04:37 Hct 27.1 % (41.0-60) L 01/04/18 04:37 MCV 90.5 fl (80-99) 01/04/18 04:37 MCH 30.0 pg (27.0-31.0) 01/04/18 04:37 MCHC Differential 33.2 pg (28.0-36.0) 01/04/18 04:37 RDW 13.7 % (11.5-20.0) 01/04/18 04:37 Plt Count 224 Th/cmm (150-400) 01/04/18 04:37 MPV 7.8 fl 01/04/18 04:37 Neutrophils % 73.5 % (40.0-80.0) 01/04/18 04:37 Band Neutrophils % 3 % (0-10) 01/03/18 05:03 Lymphocytes % 12.4 % (20.0-50.0) L 01/04/18 04:37 Monocytes % 6.7 % (2.0-10.0) 01/04/18 04:37 Eosinophils % 6.9 % (0.0-5.0) H 01/04/18 04:37 Basophils % 0.5 % (0.0-2.0) 01/04/18 04:37 Neutrophils (Manual) 90 % (40-80) H 01/03/18 05:03 Lymphocytes 6 % (20-50) L 01/03/18 05:03 Monocytes 1 % (2-10) L 01/03/18 05:03 Eosinophils 0 % (0-5) 01/02/18 15:45 Basophils 0 % (0-3) 01/02/18 15:45 Platelet Estimate ADEQUATE (NORMAL) 01/03/18 05:03 PT 11.1 SECONDS (9.5-11.5) 01/02/18 16:15 INR 1.07 (0.5-1.4) 01/02/18 16:15 PTT (Actin FS) 28.2 SECONDS (26.0-38.0) 01/02/18 16:15 D-Dimer > 5000 ng/mL (100-400) H 01/02/18 15:45 Specimen Source Arterial 01/02/18 16:05 Sample Site RB 01/02/18 16:05 pH 7.49 (7.35-7.45) H 01/02/18 16:05 pCO2 32.0 mmHg (35.0-45.0) L 01/02/18 16:05 pO2 262.0 mmHg (80.0-100.0) H 01/02/18 16:05 HCO3 26.2 mEq/L (20.0-26.0) H 01/02/18 16:05 Base Excess 1.6 mEq/L (-3.0-3.0) 01/02/18 16:05 O2 Saturation 100.0 % (92.0-100.0) 01/02/18 16:05 Norm Test NA 01/02/18 16:05 Vent Rate NA 01/02/18 16:05 Inspired O2 100 01/02/18 16:05 Tidal Volume NA 01/02/18 16:05 PEEP NA 01/02/18 16:05 Pressure (ins/psv/peep) NA 01/02/18 16:05 Critical Value E.LUZ 01/02/18 16:05 Sodium 133 mEq/L (136-145) L 01/04/18 04:37 Potassium 3.5 mEq/L (3.5-5.1) 01/04/18 04:37 Chloride 99 mEq/L (98-107) 01/04/18 04:37 Carbon Dioxide 27.4 mEq/L (21.0-31.0) 01/04/18 04:37 Anion Gap 10.1 (7.0-16.0) 01/04/18 04:37 BUN 43 mg/dL (7-25) H 01/04/18 04:37 Creatinine 2.0 mg/dL (0.7-1.3) H 01/04/18 04:37 Est GFR ( Amer) TNP 01/04/18 04:37 Est GFR (Non-Af Amer) TNP 01/04/18 04:37 BUN/Creatinine Ratio 21.5 01/04/18 04:37 Glucose 210 mg/dL (70-105) H 01/04/18 04:37 POC Glucose 179 MG/DL (70 - 105) H 01/03/18 00:32 Hemoglobin A1c % 6.5 % (4.0-6.0) H 01/02/18 15:45 Whole Bld Lactic Acid 1.38 mmol/L (0.60-1.99) 01/03/18 05:03 Calcium 7.7 mg/dL (8.6-10.3) L 01/04/18 04:37 Total Bilirubin 0.6 mg/dL (0.3-1.0) 01/02/18 15:45 AST 16 U/L (13-39) 01/02/18 15:45 ALT 11 U/L (7-52) 01/02/18 15:45 Alkaline Phosphatase 70 U/L (34-104) 01/02/18 15:45 Creatine Kinase 41 U/L (30-223) 01/02/18 15:45 Troponin I 0.01 ng/mL (0.01-0.05) 01/02/18 15:45 B-Natriuretic Peptide 55.9 pg/mL (5.0-100.0) 01/02/18 15:45 Total Protein 6.2 gm/dL (6.0-8.3) 01/02/18 15:45 Albumin 2.8 gm/dL (4.2-5.5) L 01/02/18 15:45 Globulin 3.4 gm/dL 01/02/18 15:45 Albumin/Globulin Ratio 0.8 (1.0-1.8) L 01/02/18 15:45 Triglycerides 96 mg/dL (<150) 01/02/18 15:45 Cholesterol 113 mg/dL (<200) 01/02/18 15:45 LDL Cholesterol Direct 65 mg/dL (75-193) L 01/02/18 15:45 HDL Cholesterol 36 mg/dL (23-92) 01/02/18 15:45 Random Vancomycin 5.5 ug/mL (5.0-40.0) 01/04/18 04:37 - Physical Exam Vitals and I&O: Vital Signs Temp 98.3 F 01/04/18 04:00 Pulse 81 01/04/18 07:01 Resp 21 01/04/18 07:01 BP 109/54 01/04/18 07:00 Pulse Ox 98 01/04/18 07:01 Intake & Output 01/03/18 01/04/18 01/04/18 18:59 06:59 18:59 Intake Total 1244 704 Output Total 1999 1899 Balance -756 -1196 Weight (lbs) 68.039 kg 69.003 kg Intake: Intake, IV Amount 354 304 Norepinephrine 4 mg In 254 254 Dextrose 5% 250 ml @ 8 MCG/MIN 30.48 mls/hr IV TITR PRN Rx#:[id number] Piperacillin Sodium/ 100 50 Tazobact 2.25 gm In Sodium Chloride 0.9% 50 ml @ 100 mls/hr IV Q8HR [facility] Rx#:[id number] Oral 650 400 Other 240 Output: Urine 1999 1899 Other: # Bowel Movements 1 Stool Characteristics Soft Brown Weight Source Bedscale Bedscale Active Medications: Current Medications Acetaminophen (Tylenol) 650 mg PO Q6H PRN PRN Reason: HEADACHE/TEMP ABOVE 100F Stop: 03/03/18 19:11 Albuterol Sulfate (Albuterol 2.5mg/3ml Neb Ud) 2.5 mg HHN Q6HR [facility] Stop: 03/04/18 17:59 Last Admin: 01/04/18 06:59 Dose: 2.5 mg Budesonide (Pulmicort) 0.5 mg HHN BIDRT [facility] Stop: 03/04/18 18:59 Last Admin: 01/04/18 06:59 Dose: 0.5 mg Heparin Sodium (Porcine) (Heparin) 5,000 units SUBQ Q12HR [facility] Stop: 03/03/18 20:59 Last Admin: 01/04/18 09:04 Dose: 5,000 units Potassium Chloride 40 meq/Lidocaine HCl 25 mg/ Sodium Chloride 272.5 mls @ 68 mls/hr IV DAILY PRN PRN Reason: k level less than 3.2 Stop: 03/03/18 19:11 Magnesium Sulfate (Magnesium Sulfate Premix) 2 gm in 50 mls @ 25 mls/hr IV DAILY PRN PRN Reason: Magnesium level less than 1.6 Stop: 03/03/18 19:11 Piperacillin Sod/Tazobactam (Sod 2.25 gm/ Sodium Chloride) 50 mls @ 100 mls/hr IV Q8HR [facility] Stop: 03/03/18 20:59 Last Admin: 01/04/18 06:05 Dose: 100 mls/hr Norepinephrine Bitartrate 4 mg (/ Dextrose) 254 mls @ 30.48 mls/hr IV TITR PRN ; Protocol; 8 MCG/MIN PRN Reason: BP MAINTENANCE (PER PROTOCOL) Stop: 03/03/18 20:15 Last Admin: 01/04/18 07:24 Dose: 6 mcg/min, 22.86 mls/hr Dextrose/Sodium Chloride (D5-0.9%Ns) 1,000 mls @ 100 mls/hr IV .Q10H [facility] Stop: 03/04/18 16:41 Last Admin: 01/04/18 06:00 Dose: 100 mls/hr Lorazepam (Ativan) 1 mg IVP Q4HR PRN; Protocol PRN Reason: Anxiety Stop: 03/03/18 19:11 Magnesium Oxide (Mag-Oxide) 400 mg PO BID PRN PRN Reason: Mg less than 1.9 Stop: 03/03/18 19:11 Miscellaneous (Vancomycin Iv Per Pharmacy) 1 ea MC PRN PRN PRN Reason: PROTOCOL Stop: 03/03/18 19:10 Miscellaneous (Zosyn Iv Per Pharmacy) 1 ea MC PRN PRN PRN Reason: PROTOCOL Stop: 03/03/18 19:11 Morphine Sulfate (Morphine) 1 mg IVP Q4HR PRN PRN Reason: Severe Pain Stop: 03/03/18 19:11 Nifedipine (Procardia Xl) 30 mg PO Q24H [facility] Stop: 03/03/18 19:14 Last Admin: 01/03/18 22:31 Dose: 30 mg Ondansetron HCl (Zofran) 4 mg IVP Q6H PRN PRN Reason: Nausea / Vomiting Stop: 03/03/18 19:11 Potassium Chloride (Klor-Con) 40 meq PO DAILY PRN PRN Reason: k level less than 3.5 Stop: 03/03/18 19:11 Simvastatin (Zocor) 10 mg PO HS [facility] Stop: 03/03/18 20:59 Last Admin: 01/03/18 22:31 Dose: 10 mg Tamsulosin HCl (Flomax) 0.4 mg PO HS [facility] Stop: 03/03/18 20:59 Last Admin: 01/03/18 22:30 Dose: 0.4 mg Zolpidem Tartrate (Ambien) 10 mg PO HS PRN PRN Reason: Insomnia Stop: 03/03/18 19:11 Last Admin: 01/03/18 22:31 Dose: 10 mg General: Alert, Cooperative, No acute distress HEENT: Atraumatic, PERRLA, EOMI Neck: Supple, no JVD, no Thyromegaly Cardiovascular: Regular rate, Normal S1, Normal S2 Lungs: Other (has bl rales and congestion) Abdomen: Bowel sounds, Soft, no Distended Extremities: no Clubbing, no Cyanosis Neurological: Normal speech, Normal tone Psych/Mental Status: Mood NL Assessment/Plan - Problem List Patient Problems: All Active Problems SEVERE DYSPNEA WITH SHANNON CATH PAIN (Acute) - Assessment Assessment: Septic shock due to gram pos cocci bacteremia, likely Staph Acute urinary retention with BPH Asp PNA VMN Anemia of Ch Ill Acute resp fail Hyponatremia - Plan Plan: Dr. Blount saw pt on 01/03/18 and checked on the shannon. Pt has good urine output. He's on Vanco and Zosyn. Blood cx positive for gram pos cocci in clusters. No fevers right now. On Levophed at 6 mcg today, down from 8 mcg yesterday. No headaches. Has some confusion, but improved from yesterday. No difficulty swallowing. Eating now. No abd pain. No sob at rest. No dysuria right now. No psychosis. Pt is being seeing by Nephro and Pulm as well. FU on cbc and chem 7. Met with family member at bedside and answered questions. He refused to reveal his relation to the pt, just says "yes I am family."
[2018-01-04] MEDS ORDERED: Piperacillin/Tazobact 2.25 gm in 0.9% NS 50 ML IV SCH (12:00)
--- NOTE | 2018-01-04 12:47 | General Progress Note ---
Subjective - Review of Systems Service Date: 01/04/18 Subjective: pt doing well Objective - Results Result Diagrams: 01/04/18 04:37 01/04/18 04:37 Recent Labs: Laboratory Last Values WBC 16.4 Th/cmm (4.8-10.8) H D 01/04/18 04:37 RBC 2.99 Mil/cmm (3.80-5.80) L 01/04/18 04:37 Hgb 9.0 gm/dL (12-16) L 01/04/18 04:37 Hct 27.1 % (41.0-60) L 01/04/18 04:37 MCV 90.5 fl (80-99) 01/04/18 04:37 MCH 30.0 pg (27.0-31.0) 01/04/18 04:37 MCHC Differential 33.2 pg (28.0-36.0) 01/04/18 04:37 RDW 13.7 % (11.5-20.0) 01/04/18 04:37 Plt Count 224 Th/cmm (150-400) 01/04/18 04:37 MPV 7.8 fl 01/04/18 04:37 Neutrophils % 73.5 % (40.0-80.0) 01/04/18 04:37 Band Neutrophils % 3 % (0-10) 01/03/18 05:03 Lymphocytes % 12.4 % (20.0-50.0) L 01/04/18 04:37 Monocytes % 6.7 % (2.0-10.0) 01/04/18 04:37 Eosinophils % 6.9 % (0.0-5.0) H 01/04/18 04:37 Basophils % 0.5 % (0.0-2.0) 01/04/18 04:37 Neutrophils (Manual) 90 % (40-80) H 01/03/18 05:03 Lymphocytes 6 % (20-50) L 01/03/18 05:03 Monocytes 1 % (2-10) L 01/03/18 05:03 Eosinophils 0 % (0-5) 01/02/18 15:45 Basophils 0 % (0-3) 01/02/18 15:45 Platelet Estimate ADEQUATE (NORMAL) 01/03/18 05:03 PT 11.1 SECONDS (9.5-11.5) 01/02/18 16:15 INR 1.07 (0.5-1.4) 01/02/18 16:15 PTT (Actin FS) 28.2 SECONDS (26.0-38.0) 01/02/18 16:15 D-Dimer > 5000 ng/mL (100-400) H 01/02/18 15:45 Specimen Source Arterial 01/02/18 16:05 Sample Site RB 01/02/18 16:05 pH 7.49 (7.35-7.45) H 01/02/18 16:05 pCO2 32.0 mmHg (35.0-45.0) L 01/02/18 16:05 pO2 262.0 mmHg (80.0-100.0) H 01/02/18 16:05 HCO3 26.2 mEq/L (20.0-26.0) H 01/02/18 16:05 Base Excess 1.6 mEq/L (-3.0-3.0) 01/02/18 16:05 O2 Saturation 100.0 % (92.0-100.0) 01/02/18 16:05 Norm Test NA 01/02/18 16:05 Vent Rate NA 01/02/18 16:05 Inspired O2 100 01/02/18 16:05 Tidal Volume NA 01/02/18 16:05 PEEP NA 01/02/18 16:05 Pressure (ins/psv/peep) NA 01/02/18 16:05 Critical Value E.LUZ 01/02/18 16:05 Sodium 133 mEq/L (136-145) L 01/04/18 04:37 Potassium 3.5 mEq/L (3.5-5.1) 01/04/18 04:37 Chloride 99 mEq/L (98-107) 01/04/18 04:37 Carbon Dioxide 27.4 mEq/L (21.0-31.0) 01/04/18 04:37 Anion Gap 10.1 (7.0-16.0) 01/04/18 04:37 BUN 43 mg/dL (7-25) H 01/04/18 04:37 Creatinine 2.0 mg/dL (0.7-1.3) H 01/04/18 04:37 Est GFR ( Amer) TNP 01/04/18 04:37 Est GFR (Non-Af Amer) TNP 01/04/18 04:37 BUN/Creatinine Ratio 21.5 01/04/18 04:37 Glucose 210 mg/dL (70-105) H 01/04/18 04:37 POC Glucose 179 MG/DL (70 - 105) H 01/03/18 00:32 Hemoglobin A1c % 6.5 % (4.0-6.0) H 01/02/18 15:45 Whole Bld Lactic Acid 1.38 mmol/L (0.60-1.99) 01/03/18 05:03 Calcium 7.7 mg/dL (8.6-10.3) L 01/04/18 04:37 Total Bilirubin 0.6 mg/dL (0.3-1.0) 01/02/18 15:45 AST 16 U/L (13-39) 01/02/18 15:45 ALT 11 U/L (7-52) 01/02/18 15:45 Alkaline Phosphatase 70 U/L (34-104) 01/02/18 15:45 Creatine Kinase 41 U/L (30-223) 01/02/18 15:45 Troponin I 0.01 ng/mL (0.01-0.05) 01/02/18 15:45 B-Natriuretic Peptide 55.9 pg/mL (5.0-100.0) 01/02/18 15:45 Total Protein 6.2 gm/dL (6.0-8.3) 01/02/18 15:45 Albumin 2.8 gm/dL (4.2-5.5) L 01/02/18 15:45 Globulin 3.4 gm/dL 01/02/18 15:45 Albumin/Globulin Ratio 0.8 (1.0-1.8) L 01/02/18 15:45 Triglycerides 96 mg/dL (<150) 01/02/18 15:45 Cholesterol 113 mg/dL (<200) 01/02/18 15:45 LDL Cholesterol Direct 65 mg/dL (75-193) L 01/02/18 15:45 HDL Cholesterol 36 mg/dL (23-92) 01/02/18 15:45 Random Vancomycin 5.5 ug/mL (5.0-40.0) 01/04/18 04:37 - Physical Exam Vitals and I&O: Vital Signs Temp 98.3 F 01/04/18 04:00 Pulse 81 01/04/18 07:01 Resp 21 01/04/18 07:01 BP 109/54 01/04/18 07:00 Pulse Ox 96 01/04/18 10:00 Intake & Output 01/03/18 01/04/18 01/04/18 18:59 06:59 18:59 Intake Total 1244 704 Output Total 1999 1899 Balance -756 -1196 Weight (lbs) 68.039 kg 69.003 kg Intake: Intake, IV Amount 354 304 Norepinephrine 4 mg In 254 254 Dextrose 5% 250 ml @ 8 MCG/MIN 30.48 mls/hr IV TITR PRN Rx#:[id number] Piperacillin Sodium/ 100 50 Tazobact 2.25 gm In Sodium Chloride 0.9% 50 ml @ 100 mls/hr IV Q8HR [facility] Rx#:[id number] Oral 650 400 Other 240 Output: Urine 1999 1899 Other: # Bowel Movements 1 Stool Characteristics Soft Brown Weight Source Bedscale Bedscale Active Medications: Current Medications Acetaminophen (Tylenol) 650 mg PO Q6H PRN PRN Reason: HEADACHE/TEMP ABOVE 100F Stop: 03/03/18 19:11 Albuterol Sulfate (Albuterol 2.5mg/3ml Neb Ud) 2.5 mg HHN Q6HR [facility] Stop: 03/04/18 17:59 Last Admin: 01/04/18 06:59 Dose: 2.5 mg Budesonide (Pulmicort) 0.5 mg HHN BIDRT [facility] Stop: 03/04/18 18:59 Last Admin: 01/04/18 06:59 Dose: 0.5 mg Heparin Sodium (Porcine) (Heparin) 5,000 units SUBQ Q12HR [facility] Stop: 03/03/18 20:59 Last Admin: 01/04/18 09:04 Dose: 5,000 units Potassium Chloride 40 meq/Lidocaine HCl 25 mg/ Sodium Chloride 272.5 mls @ 68 mls/hr IV DAILY PRN PRN Reason: k level less than 3.2 Stop: 03/03/18 19:11 Magnesium Sulfate (Magnesium Sulfate Premix) 2 gm in 50 mls @ 25 mls/hr IV DAILY PRN PRN Reason: Magnesium level less than 1.6 Stop: 03/03/18 19:11 Norepinephrine Bitartrate 4 mg (/ Dextrose) 254 mls @ 30.48 mls/hr IV TITR PRN ; Protocol; 8 MCG/MIN PRN Reason: BP MAINTENANCE (PER PROTOCOL) Stop: 03/03/18 20:15 Last Admin: 01/04/18 07:24 Dose: 6 mcg/min, 22.86 mls/hr Dextrose/Sodium Chloride (D5-0.9%Ns) 1,000 mls @ 100 mls/hr IV .Q10H [facility] Stop: 03/04/18 16:41 Last Admin: 01/04/18 06:00 Dose: 100 mls/hr Piperacillin Sod/Tazobactam (Sod 2.25 gm/ Sodium Chloride) 50 mls @ 100 mls/hr IV Q6H [facility] Stop: 03/03/18 20:59 Vancomycin HCl 1 gm/ Sodium (Chloride) 250 mls @ 165 mls/hr IV Q24H [facility] Stop: 03/05/18 10:59 Last Admin: 01/04/18 11:38 Dose: 165 mls/hr Lorazepam (Ativan) 1 mg IVP Q4HR PRN; Protocol PRN Reason: Anxiety Stop: 03/03/18 19:11 Magnesium Oxide (Mag-Oxide) 400 mg PO BID PRN PRN Reason: Mg less than 1.9 Stop: 03/03/18 19:11 Miscellaneous (Vancomycin Iv Per Pharmacy) 1 [facility] PRN PRN PRN Reason: PROTOCOL Stop: 03/03/18 19:10 Miscellaneous (Zosyn Iv Per Pharmacy) 1 [facility] PRN PRN PRN Reason: PROTOCOL Stop: 03/03/18 19:11 Morphine Sulfate (Morphine) 1 mg IVP Q4HR PRN PRN Reason: Severe Pain Stop: 03/03/18 19:11 Nifedipine (Procardia Xl) 30 mg PO Q24H [facility] Stop: 03/03/18 19:14 Last Admin: 01/03/18 22:31 Dose: 30 mg Ondansetron HCl (Zofran) 4 mg IVP Q6H PRN PRN Reason: Nausea / Vomiting Stop: 03/03/18 19:11 Potassium Chloride (Klor-Con) 40 meq PO DAILY PRN PRN Reason: k level less than 3.5 Stop: 03/03/18 19:11 Simvastatin (Zocor) 10 mg PO HS [facility] Stop: 03/03/18 20:59 Last Admin: 01/03/18 22:31 Dose: 10 mg Tamsulosin HCl (Flomax) 0.4 mg PO HS [facility] Stop: 03/03/18 20:59 Last Admin: 01/03/18 22:30 Dose: 0.4 mg Zolpidem Tartrate (Ambien) 10 mg PO HS PRN PRN Reason: Insomnia Stop: 03/03/18 19:11 Last Admin: 01/03/18 22:31 Dose: 10 mg General: Alert, Cooperative, No acute distress HEENT: Atraumatic, PERRLA, EOMI Neck: Supple, no JVD, no Thyromegaly Cardiovascular: Regular rate, Normal S1, Normal S2 Lungs: Other (has bl rales and congestion) Abdomen: Bowel sounds, Soft, no Distended Extremities: no Clubbing, no Cyanosis Neurological: Normal speech, Normal tone Psych/Mental Status: Mood NL Assessment/Plan - Problem List Patient Problems: All Active Problems SEVERE DYSPNEA WITH UMAÑA CATH PAIN (Acute) - Assessment Assessment: arf sepsis bph malfunction of Umaña - Plan Plan: renal function improving
--- NOTE | 2018-01-04 14:26 | Infectious Disease Prog Note ---
Infectious Disease Subjective - Review of Systems Service Date: 01/04/18 Events since last encounter: No new change, no fever. Subjective: There is no new change, no fever. On levophed drip. Infectious Disease Objective - Results Result Diagrams: 01/04/18 04:37 01/04/18 04:37 Recent Labs: Laboratory Last Values WBC 16.4 Th/cmm (4.8-10.8) H D 01/04/18 04:37 RBC 2.99 Mil/cmm (3.80-5.80) L 01/04/18 04:37 Hgb 9.0 gm/dL (12-16) L 01/04/18 04:37 Hct 27.1 % (41.0-60) L 01/04/18 04:37 MCV 90.5 fl (80-99) 01/04/18 04:37 MCH 30.0 pg (27.0-31.0) 01/04/18 04:37 MCHC Differential 33.2 pg (28.0-36.0) 01/04/18 04:37 RDW 13.7 % (11.5-20.0) 01/04/18 04:37 Plt Count 224 Th/cmm (150-400) 01/04/18 04:37 MPV 7.8 fl 01/04/18 04:37 Neutrophils % 73.5 % (40.0-80.0) 01/04/18 04:37 Band Neutrophils % 3 % (0-10) 01/03/18 05:03 Lymphocytes % 12.4 % (20.0-50.0) L 01/04/18 04:37 Monocytes % 6.7 % (2.0-10.0) 01/04/18 04:37 Eosinophils % 6.9 % (0.0-5.0) H 01/04/18 04:37 Basophils % 0.5 % (0.0-2.0) 01/04/18 04:37 Neutrophils (Manual) 90 % (40-80) H 01/03/18 05:03 Lymphocytes 6 % (20-50) L 01/03/18 05:03 Monocytes 1 % (2-10) L 01/03/18 05:03 Eosinophils 0 % (0-5) 01/02/18 15:45 Basophils 0 % (0-3) 01/02/18 15:45 Platelet Estimate ADEQUATE (NORMAL) 01/03/18 05:03 PT 11.1 SECONDS (9.5-11.5) 01/02/18 16:15 INR 1.07 (0.5-1.4) 01/02/18 16:15 PTT (Actin FS) 28.2 SECONDS (26.0-38.0) 01/02/18 16:15 D-Dimer > 5000 ng/mL (100-400) H 01/02/18 15:45 Specimen Source Arterial 01/02/18 16:05 Sample Site RB 01/02/18 16:05 pH 7.49 (7.35-7.45) H 01/02/18 16:05 pCO2 32.0 mmHg (35.0-45.0) L 01/02/18 16:05 pO2 262.0 mmHg (80.0-100.0) H 01/02/18 16:05 HCO3 26.2 mEq/L (20.0-26.0) H 01/02/18 16:05 Base Excess 1.6 mEq/L (-3.0-3.0) 01/02/18 16:05 O2 Saturation 100.0 % (92.0-100.0) 01/02/18 16:05 Norm Test NA 01/02/18 16:05 Vent Rate NA 01/02/18 16:05 Inspired O2 100 01/02/18 16:05 Tidal Volume NA 01/02/18 16:05 PEEP NA 01/02/18 16:05 Pressure (ins/psv/peep) NA 01/02/18 16:05 Critical Value E.LUZ 01/02/18 16:05 Sodium 133 mEq/L (136-145) L 01/04/18 04:37 Potassium 3.5 mEq/L (3.5-5.1) 01/04/18 04:37 Chloride 99 mEq/L (98-107) 01/04/18 04:37 Carbon Dioxide 27.4 mEq/L (21.0-31.0) 01/04/18 04:37 Anion Gap 10.1 (7.0-16.0) 01/04/18 04:37 BUN 43 mg/dL (7-25) H 01/04/18 04:37 Creatinine 2.0 mg/dL (0.7-1.3) H 01/04/18 04:37 Est GFR ( Amer) TNP 01/04/18 04:37 Est GFR (Non-Af Amer) TNP 01/04/18 04:37 BUN/Creatinine Ratio 21.5 01/04/18 04:37 Glucose 210 mg/dL (70-105) H 01/04/18 04:37 POC Glucose 179 MG/DL (70 - 105) H 01/03/18 00:32 Hemoglobin A1c % 6.5 % (4.0-6.0) H 01/02/18 15:45 Whole Bld Lactic Acid 1.38 mmol/L (0.60-1.99) 01/03/18 05:03 Calcium 7.7 mg/dL (8.6-10.3) L 01/04/18 04:37 Total Bilirubin 0.6 mg/dL (0.3-1.0) 01/02/18 15:45 AST 16 U/L (13-39) 01/02/18 15:45 ALT 11 U/L (7-52) 01/02/18 15:45 Alkaline Phosphatase 70 U/L (34-104) 01/02/18 15:45 Creatine Kinase 41 U/L (30-223) 01/02/18 15:45 Troponin I 0.01 ng/mL (0.01-0.05) 01/02/18 15:45 B-Natriuretic Peptide 55.9 pg/mL (5.0-100.0) 01/02/18 15:45 Total Protein 6.2 gm/dL (6.0-8.3) 01/02/18 15:45 Albumin 2.8 gm/dL (4.2-5.5) L 01/02/18 15:45 Globulin 3.4 gm/dL 01/02/18 15:45 Albumin/Globulin Ratio 0.8 (1.0-1.8) L 01/02/18 15:45 Triglycerides 96 mg/dL (<150) 01/02/18 15:45 Cholesterol 113 mg/dL (<200) 01/02/18 15:45 LDL Cholesterol Direct 65 mg/dL (75-193) L 01/02/18 15:45 HDL Cholesterol 36 mg/dL (23-92) 01/02/18 15:45 Random Vancomycin 5.5 ug/mL (5.0-40.0) 01/04/18 04:37 - Physical Exam Vitals and I&O: Vital Signs Temp 97.6 F 01/04/18 12:00 Pulse 84 01/04/18 14:22 Resp 22 01/04/18 14:22 BP 120/62 01/04/18 13:00 Pulse Ox 99 01/04/18 14:22 Intake & Output 01/03/18 01/04/18 01/04/18 18:59 06:59 18:59 Intake Total 1244 704 Output Total 1999 1899 Balance -756 -1196 Weight (lbs) 68.039 kg 69.003 kg Intake: Intake, IV Amount 354 304 Norepinephrine 4 mg In 254 254 Dextrose 5% 250 ml @ 8 MCG/MIN 30.48 mls/hr IV TITR PRN Rx#:[id number] Piperacillin Sodium/ 100 50 Tazobact 2.25 gm In Sodium Chloride 0.9% 50 ml @ 100 mls/hr IV Q8HR [facility] Rx#:[id number] Oral 650 400 Other 240 Output: Urine 1999 1899 Other: # Bowel Movements 1 Stool Characteristics Soft Brown Weight Source Bedscale Bedscale Active Medications: Current Medications Acetaminophen (Tylenol) 650 mg PO Q6H PRN PRN Reason: HEADACHE/TEMP ABOVE 100F Stop: 03/03/18 19:11 Albuterol Sulfate (Albuterol 2.5mg/3ml Neb Ud) 2.5 mg HHN Q6HR [facility] Stop: 03/04/18 17:59 Last Admin: 01/04/18 14:22 Dose: Not Given Budesonide (Pulmicort) 0.5 mg HHN BIDRT [facility] Stop: 03/04/18 18:59 Last Admin: 01/04/18 06:59 Dose: 0.5 mg Heparin Sodium (Porcine) (Heparin) 5,000 units SUBQ Q12HR [facility] Stop: 03/03/18 20:59 Last Admin: 01/04/18 09:04 Dose: 5,000 units Potassium Chloride 40 meq/Lidocaine HCl 25 mg/ Sodium Chloride 272.5 mls @ 68 mls/hr IV DAILY PRN PRN Reason: k level less than 3.2 Stop: 03/03/18 19:11 Magnesium Sulfate (Magnesium Sulfate Premix) 2 gm in 50 mls @ 25 mls/hr IV DAILY PRN PRN Reason: Magnesium level less than 1.6 Stop: 03/03/18 19:11 Norepinephrine Bitartrate 4 mg (/ Dextrose) 254 mls @ 30.48 mls/hr IV TITR PRN ; Protocol; 8 MCG/MIN PRN Reason: BP MAINTENANCE (PER PROTOCOL) Stop: 03/03/18 20:15 Last Admin: 01/04/18 07:24 Dose: 6 mcg/min, 22.86 mls/hr Dextrose/Sodium Chloride (D5-0.9%Ns) 1,000 mls @ 100 mls/hr IV .Q10H [facility] Stop: 03/04/18 16:41 Last Admin: 01/04/18 06:00 Dose: 100 mls/hr Piperacillin Sod/Tazobactam (Sod 2.25 gm/ Sodium Chloride) 50 mls @ 100 mls/hr IV Q6H [facility] Stop: 03/03/18 20:59 Vancomycin HCl 1 gm/ Sodium (Chloride) 250 mls @ 165 mls/hr IV Q24H [facility] Stop: 03/05/18 10:59 Last Admin: 01/04/18 11:38 Dose: 165 mls/hr Lorazepam (Ativan) 1 mg IVP Q4HR PRN; Protocol PRN Reason: Anxiety Stop: 03/03/18 19:11 Magnesium Oxide (Mag-Oxide) 400 mg PO BID PRN PRN Reason: Mg less than 1.9 Stop: 03/03/18 19:11 Miscellaneous (Vancomycin Iv Per Pharmacy) 1 e[facility] PRN PRN PRN Reason: PROTOCOL Stop: 03/03/18 19:10 Miscellaneous (Zosyn Iv Per Pharmacy) 1 ea PRN PRN PRN Reason: PROTOCOL Stop: 03/03/18 19:11 Morphine Sulfate (Morphine) 1 mg IVP Q4HR PRN PRN Reason: Severe Pain Stop: 03/03/18 19:11 Nifedipine (Procardia Xl) 30 mg PO Q24H [facility] Stop: 03/03/18 19:14 Last Admin: 01/03/18 22:31 Dose: 30 mg Ondansetron HCl (Zofran) 4 mg IVP Q6H PRN PRN Reason: Nausea / Vomiting Stop: 03/03/18 19:11 Potassium Chloride (Klor-Con) 40 meq PO DAILY PRN PRN Reason: k level less than 3.5 Stop: 03/03/18 19:11 Simvastatin (Zocor) 10 mg PO HS [facility] Stop: 03/03/18 20:59 Last Admin: 01/03/18 22:31 Dose: 10 mg Tamsulosin HCl (Flomax) 0.4 mg PO HS [facility] Stop: 03/03/18 20:59 Last Admin: 01/03/18 22:30 Dose: 0.4 mg Zolpidem Tartrate (Ambien) 10 mg PO HS PRN PRN Reason: Insomnia Stop: 03/03/18 19:11 Last Admin: 01/03/18 22:31 Dose: 10 mg General: no acute distress, well developed, well nourished HEENT: atraumatic, normocephalic, PERRLA Neck: supple, no thyromegaly Cardiovascular: S1S2, regular Lungs: clear to auscultation bilaterally, clear to percussion Abdomen: soft, no tender, no distended Extremities: no cyanosis, no clubbing, no edema Neurological: awake, alert, oriented Skin: intact Infectious Disease Assmt/Plan - Problem List Patient Problems: All Active Problems SEVERE DYSPNEA WITH UMAÑA CATH PAIN (Acute) - Assessment Assessment: 1. Septic shock. Severe sepsis. The lactic acidosis and hypotension. Sepsis. Improving. 2. Pneumonia. 3. UTI. Complicated with hydronephrosis. Pyelonephritis. 4. Staphylococcal sepsis. 5. BPH. 6. Pulmonary fibrosis [as per CT scan chest report]. 7. History of hypertension, currently hypotensive receiving Levophed. 8. History of COPD. 9. History of dyslipidemia. 10. Acute renal failure, likely obstructive uropathy. 11. Acute renal failure improving, 2/2 obstructive uropathy/ BPH. - Plan Plan: Will continue vanco IV and Zosyn. Re-order UA and urine culture.
--- NOTE | 2018-01-04 15:44 | Cardiology ---
01/03/[address] Choudhary. M-MODE ECHOCARDIOGRAM: Mitral valve, anterior leaflet of mitral valve shows normal excursion, EF velocity. Posterior leaflet of the mitral valve shows normal excursion. Left ventricular posterior shows increased thickness, normal excursion. Interventricular septum shows increased thickness, normal excursion. There is minimal hypertrophy of the left ventricle, ejection fraction 60%. Left atrium normal. Aortic root shows normal dimension, normal excursion of aortic leaflets. CONCLUSION: Minimal hypertrophy of the left ventricle, ejection fraction 60%. 2D ECHO: Long axis view show normal size left ventricle with minimal hypertrophy of the left ventricle. Left atrium normal. Aortic root shows normal dimension, normal excursion of aortic leaflets. Short axis view of mitral valve normal. Short axis view of aortic valve normal. Apical four chamber view shows normal sized left ventricle, left atrium, right ventricle, right atrium, tricuspid and mitral valve. Ejection fraction 60%. CONCLUSION: Minimal hypertrophy of the left ventricle, ejection fraction 60%. Doppler study shows mild tricuspid regurgitation, right ventricular systolic pressure is 46 mmHg with mild pulmonary hypertension, mild tricuspid regurgitation. [facility]# [id number]
--- NOTE | 2018-01-04 20:20 | Progress Notes ---
DATE: 01/04/2018 The patient remains in ICU on tapering Levophed drip, awake, alert and markedly improved. Urine output has been plenty. Renal function is improving. PHYSICAL EXAMINATION: VITAL SIGNS: On last exam, blood pressure 119/67 with Levophed, heart rate 92 and last temperature 97.6. ABDOMEN: Soft, nondistended, nontender. Bladder decompressed with the Glez draining clear urine. EXTREMITIES: No edema. LABORATORY DATA: Creatinine has fallen from 4.9 to 2.0, BUN down to 43. Sodium 133. Lactic acid has come down from 2.1 to 1.3 as of yesterday. White count down to 16.4 from a high of 32, hemoglobin 9.0, drifted down a little bit, probably dilutional, but has to be followed closely. There is no urinalysis done. Blood cultures showed gram-positive cocci in one of the reports and nares showed Staph aureus MRSA. IMPRESSION: 1. Acute renal failure from bilateral hydronephrosis secondary to bladder outlet obstruction from BPH, responding well to Glez catheter and hydration. Recommend continue same treatment. Allow renal function to improve to the maximum and consider cystoscopy thereafter electively. The Glez catheter should be maintained until his prostate has been taken care of most probably by TURP. Glez should not be removed before that, otherwise, he will slip back into the same problem of obstruction, hydronephrosis and renal failure. 2. Diabetes, fair control. 3. Hypertension, currently not an issue, on Levophed drip due to hypotension 4. Hyperlipidemia. No change. 5. Coronary artery disease and congestive heart failure with pacemaker are all stable, but risk factors need to be evaluated before surgery. We may go ahead and clear him for the surgery if possible before he goes home, so that this can save time when we admit him electively. JOB# [id number]
[2018-01-05] MEDS: Albuterol Nebulizer 2.5mg/3mL HHN SCH ×4 (00:42→19:31)
[2018-01-05 05:03] LABS: % EOSINOPHILS 9.9 % (0.0-5.0); % LYMPHOCYTES 20.2 % (20.0-50.0); % MONOCYTES 8.1 % (2.0-10.0); % NEUTROPHILS 60.8 % (40.0-80.0); BASOPHILE ABSOLUTE 0.1 Th/cumm (0-0.2); EOSINOPHILE ABSOLUTE 1.2 Th/cmm (0.1-0.4); HEMATOCRIT 25.4 % (41.0-60); HEMOGLOBIN 8.4 gm/dL (12-16); LYMPHOCYTE ABSOLUTE 2.4 Th/cmm (1.5-3.0); MEAN CELL VOLUME 90.9 fl (80-99); MEAN CORPUSCULAR HGB CONC 32.9 pg (28.0-36.0); MEAN PLATELET VOLUME 7.5 fl; NEUTROPHILE ABSOLUTE 7.1 Th/cmm (1.8-8.0); PLATELET COUNT 223 Th/cmm (150-400); RED BLOOD COUNT 2.79 Mil/cmm (3.80-5.80); RED CELL DISTRIBUTION WIDTH 13.7 % (11.5-20.0); WHITE BLOOD COUNT 11.8 Th/cmm (4.8-10.8)
[2018-01-05 05:45] LABS: ANION GAP 5.9 (7.0-16.0); BUN - UREA NITROGEN 22 mg/dL (7-25); CALCIUM SERUM 7.7 mg/dL (8.6-10.3); CARBON DIOXIDE 29.5 mEq/L (21.0-31.0); CHLORIDE 104 mEq/L (98-107); GLUCOSE 112 mg/dL (70-105); POTASSIUM SERUM 3.4 mEq/L (3.5-5.1); SODIUM SERUM 136 mEq/L (136-145)
[2018-01-05] MEDS: Budesonide 0.5 Mg/2 mL Ud HHN SCH ×2 (07:29→19:31)
[2018-01-05] MEDS: D5-0.9%NS 1,000 ML IV SCH ×3 (09:00→17:53)
--- NOTE | 2018-01-05 09:03 | Diagnostic Imaging Report ---
CHEST X-RAY: AP view INDICATION: Shortness of breath COMPARISON: 01/02/2018 FINDINGS: Left chest wall pacemaker is stable. Extensive bilateral interstitial infiltrates are noted, increased since prior exam. Low lung volumes are noted. The heart size is difficult to assess but appears prominent. IMPRESSION: Extensive bilateral interstitial infiltrates, increased since prior exam.
--- NOTE | 2018-01-05 09:23 | General Progress Note ---
Subjective - Review of Systems Service Date: 01/05/18 Subjective: Pt seen and eval. More awake and alert today. Making jokes. No n,v,d or cp. His grandson and grand daughter are at the bedside. Dr. Blount saw pt on 01/03/18 and checked on the shannon. Pt has good urine output. He's on Vanco and Zosyn. Blood cx positive for gram pos cocci in clusters. No fevers right now. Off levophed now. No headaches. Has some confusion, but improved from yesterday. No difficulty swallowing. Eating now. No abd pain. No sob at rest. No dysuria right now. No psychosis. Objective - Results Result Diagrams: 01/05/18 04:41 01/05/18 04:41 Recent Labs: Laboratory Last Values WBC 11.8 Th/cmm (4.8-10.8) H 01/05/18 04:41 RBC 2.79 Mil/cmm (3.80-5.80) L 01/05/18 04:41 Hgb 8.4 gm/dL (12-16) L 01/05/18 04:41 Hct 25.4 % (41.0-60) L 01/05/18 04:41 MCV 90.9 fl (80-99) 01/05/18 04:41 MCH 30.0 pg (27.0-31.0) 01/05/18 04:41 MCHC Differential 32.9 pg (28.0-36.0) 01/05/18 04:41 RDW 13.7 % (11.5-20.0) 01/05/18 04:41 Plt Count 223 Th/cmm (150-400) 01/05/18 04:41 MPV 7.5 fl 01/05/18 04:41 Neutrophils % 60.8 % (40.0-80.0) 01/05/18 04:41 Band Neutrophils % 3 % (0-10) 01/03/18 05:03 Lymphocytes % 20.2 % (20.0-50.0) 01/05/18 04:41 Monocytes % 8.1 % (2.0-10.0) 01/05/18 04:41 Eosinophils % 9.9 % (0.0-5.0) H 01/05/18 04:41 Basophils % 1.0 % (0.0-2.0) 01/05/18 04:41 Neutrophils (Manual) 90 % (40-80) H 01/03/18 05:03 Lymphocytes 6 % (20-50) L 01/03/18 05:03 Monocytes 1 % (2-10) L 01/03/18 05:03 Eosinophils 0 % (0-5) 01/02/18 15:45 Basophils 0 % (0-3) 01/02/18 15:45 Platelet Estimate ADEQUATE (NORMAL) 01/03/18 05:03 PT 11.1 SECONDS (9.5-11.5) 01/02/18 16:15 INR 1.07 (0.5-1.4) 01/02/18 16:15 PTT (Actin FS) 28.2 SECONDS (26.0-38.0) 01/02/18 16:15 D-Dimer > 5000 ng/mL (100-400) H 01/02/18 15:45 Specimen Source Arterial 01/02/18 16:05 Sample Site RB 01/02/18 16:05 pH 7.49 (7.35-7.45) H 01/02/18 16:05 pCO2 32.0 mmHg (35.0-45.0) L 01/02/18 16:05 pO2 262.0 mmHg (80.0-100.0) H 01/02/18 16:05 HCO3 26.2 mEq/L (20.0-26.0) H 01/02/18 16:05 Base Excess 1.6 mEq/L (-3.0-3.0) 01/02/18 16:05 O2 Saturation 100.0 % (92.0-100.0) 01/02/18 16:05 Norm Test NA 01/02/18 16:05 Vent Rate NA 01/02/18 16:05 Inspired O2 100 01/02/18 16:05 Tidal Volume NA 01/02/18 16:05 PEEP NA 01/02/18 16:05 Pressure (ins/psv/peep) NA 01/02/18 16:05 Critical Value E.LUZ 01/02/18 16:05 Sodium 136 mEq/L (136-145) 01/05/18 04:41 Potassium 3.4 mEq/L (3.5-5.1) L 01/05/18 04:41 Chloride 104 mEq/L (98-107) 01/05/18 04:41 Carbon Dioxide 29.5 mEq/L (21.0-31.0) 01/05/18 04:41 Anion Gap 5.9 (7.0-16.0) L 01/05/18 04:41 BUN 22 mg/dL (7-25) 01/05/18 04:41 Creatinine 1.0 mg/dL (0.7-1.3) 01/05/18 04:41 Est GFR ( Amer) TNP 01/05/18 04:41 Est GFR (Non-Af Amer) TNP 01/05/18 04:41 BUN/Creatinine Ratio 22.0 01/05/18 04:41 Glucose 112 mg/dL (70-105) H 01/05/18 04:41 POC Glucose 179 MG/DL (70 - 105) H 01/03/18 00:32 Hemoglobin A1c % 6.5 % (4.0-6.0) H 01/02/18 15:45 Whole Bld Lactic Acid 1.38 mmol/L (0.60-1.99) 01/03/18 05:03 Calcium 7.7 mg/dL (8.6-10.3) L 01/05/18 04:41 Total Bilirubin 0.6 mg/dL (0.3-1.0) 01/02/18 15:45 AST 16 U/L (13-39) 01/02/18 15:45 ALT 11 U/L (7-52) 01/02/18 15:45 Alkaline Phosphatase 70 U/L (34-104) 01/02/18 15:45 Creatine Kinase 41 U/L (30-223) 01/02/18 15:45 Troponin I 0.01 ng/mL (0.01-0.05) 01/02/18 15:45 B-Natriuretic Peptide 55.9 pg/mL (5.0-100.0) 01/02/18 15:45 Total Protein 6.2 gm/dL (6.0-8.3) 01/02/18 15:45 Albumin 2.8 gm/dL (4.2-5.5) L 01/02/18 15:45 Globulin 3.4 gm/dL 01/02/18 15:45 Albumin/Globulin Ratio 0.8 (1.0-1.8) L 01/02/18 15:45 Triglycerides 96 mg/dL (<150) 01/02/18 15:45 Cholesterol 113 mg/dL (<200) 01/02/18 15:45 LDL Cholesterol Direct 65 mg/dL (75-193) L 01/02/18 15:45 HDL Cholesterol 36 mg/dL (23-92) 01/02/18 15:45 Random Vancomycin 5.5 ug/mL (5.0-40.0) 01/04/18 04:37 - Physical Exam Vitals and I&O: Vital Signs Temp 98.8 F 01/05/18 04:00 Pulse 81 01/05/18 07:45 Resp 21 01/05/18 07:45 BP 118/63 01/05/18 06:00 Pulse Ox 99 01/05/18 07:45 Intake & Output 01/04/18 01/05/18 01/05/18 18:59 06:59 18:59 Intake Total 1800 573.848 Output Total 2250 1500 Balance -450 -926.152 Weight (lbs) 68.946 kg 68.946 kg Intake: Intake, IV Amount 1250 53.848 D5-0.9%Ns 1,000 ml @ 100 1000 mls/hr IV .Q10H [facility] Rx#: [id number] Norepinephrine 4 mg In 53.848 Sodium Chloride 0.9% 250 ml @ 8 MCG/MIN 30.48 mls/ hr IV TITR PRN Rx#: [id number] Vancomycin HCl 1 gm In 250 Sodium Chloride 0.9% 250 ml @ 165 mls/hr IV Q24H [facility] Rx#:[id number] Oral 550 520 Output: Urine 2250 1500 Other: # Bowel Movements 0 Weight Source Bedscale Bedscale Active Medications: Current Medications Acetaminophen (Tylenol) 650 mg PO Q6H PRN PRN Reason: HEADACHE/TEMP ABOVE 100F Stop: 03/03/18 19:11 Albuterol Sulfate (Albuterol 2.5mg/3ml Neb Ud) 2.5 mg HHN Q6HR [facility] Stop: 03/04/18 17:59 Last Admin: 01/05/18 07:29 Dose: 2.5 mg Budesonide (Pulmicort) 0.5 mg HHN BIDRT [facility] Stop: 03/04/18 18:59 Last Admin: 01/05/18 07:29 Dose: 0.5 mg Heparin Sodium (Porcine) (Heparin) 5,000 units SUBQ Q12HR [facility] Stop: 03/03/18 20:59 Last Admin: 01/05/18 09:10 Dose: 5,000 units Potassium Chloride 40 meq/Lidocaine HCl 25 mg/ Sodium Chloride 272.5 mls @ 68 mls/hr IV DAILY PRN PRN Reason: k level less than 3.2 Stop: 03/03/18 19:11 Magnesium Sulfate (Magnesium Sulfate Premix) 2 gm in 50 mls @ 25 mls/hr IV DAILY PRN PRN Reason: Magnesium level less than 1.6 Stop: 03/03/18 19:11 Dextrose/Sodium Chloride (D5-0.9%Ns) 1,000 mls @ 100 mls/hr IV .Q10H [facility] Stop: 03/04/18 16:41 Last Admin: 01/04/18 18:45 Dose: 100 mls/hr Piperacillin Sod/Tazobactam (Sod 2.25 gm/ Sodium Chloride) 50 mls @ 100 mls/hr IV Q6H [facility] Stop: 03/03/18 20:59 Vancomycin HCl 1 gm/ Sodium (Chloride) 250 mls @ 165 mls/hr IV Q24H [facility] Stop: 03/05/18 10:59 Last Infusion: 01/04/18 16:00 Dose: Infused Norepinephrine Bitartrate 4 mg (/ Sodium Chloride) 254 mls @ 30.48 mls/hr IV TITR PRN; Protocol; 8 MCG/MIN PRN Reason: BP MAINTENANCE (PER PROTOCOL) Stop: 03/03/18 20:15 Last Titration: 01/04/18 20:00 Dose: 0 mcg/min, 0 mls/hr Lorazepam (Ativan) 1 mg IVP Q4HR PRN; Protocol PRN Reason: Anxiety Stop: 03/03/18 19:11 Magnesium Oxide (Mag-Oxide) 400 mg PO BID PRN PRN Reason: Mg less than 1.9 Stop: 03/03/18 19:11 Miscellaneous (Vancomycin Iv Per Pharmacy) 1 ea PRN PRN PRN Reason: PROTOCOL Stop: 03/03/18 19:10 Miscellaneous (Zosyn Iv Per Pharmacy) 1 ea PRN PRN PRN Reason: PROTOCOL Stop: 03/03/18 19:11 Morphine Sulfate (Morphine) 1 mg IVP Q4HR PRN PRN Reason: Severe Pain Stop: 03/03/18 19:11 Nifedipine (Procardia Xl) 30 mg PO Q24H [facility] Stop: 03/03/18 19:14 Last Admin: 01/03/18 22:31 Dose: 30 mg Ondansetron HCl (Zofran) 4 mg IVP Q6H PRN PRN Reason: Nausea / Vomiting Stop: 03/03/18 19:11 Potassium Chloride (Klor-Con) 40 meq PO DAILY PRN PRN Reason: k level less than 3.5 Stop: 03/03/18 19:11 Simvastatin (Zocor) 10 mg PO HS [facility] Stop: 03/03/18 20:59 Last Admin: 01/04/18 22:38 Dose: 10 mg Tamsulosin HCl (Flomax) 0.4 mg PO HS [facility] Stop: 03/03/18 20:59 Last Admin: 01/04/18 22:38 Dose: 0.4 mg Zolpidem Tartrate (Ambien) 10 mg PO HS PRN PRN Reason: Insomnia Stop: 03/03/18 19:11 Last Admin: 01/03/18 22:31 Dose: 10 mg General: Alert, Cooperative, No acute distress HEENT: Atraumatic, PERRLA, EOMI Neck: Supple, no JVD, no Thyromegaly Cardiovascular: Regular rate, Normal S1, Normal S2 Lungs: Other (has bl rales and congestion) Abdomen: Bowel sounds, Soft, no Distended Extremities: no Clubbing, no Cyanosis Neurological: Normal speech, Normal tone Psych/Mental Status: Mood NL Assessment/Plan - Problem List Patient Problems: All Active Problems SEVERE DYSPNEA WITH SHANNON CATH PAIN (Acute) - Assessment Assessment: Septic shock due to gram pos cocci bacteremia, likely Staph Acute urinary retention with BPH Asp PNA VMN Anemia of Ch Ill Acute resp fail Hyponatremia - Plan Plan: Dr. Blount saw pt on 01/03/18 and checked on the shannon. Pt has good urine output. He's on Vanco and Zosyn. Blood cx positive for gram pos cocci in clusters. No fevers right now. Off Levophed since 01/04/18. No headaches. Has some confusion, but improved from yesterday. No difficulty swallowing. Eating now. No abd pain. No sob at rest. No dysuria right now. No psychosis. Pt is being seeing by Nephro and Pulm as well. FU on cbc and chem 7. Met with family member at bedside and answered questions. Today his grandson and great grand daughter are visiting. Nutritional Asmnt/Malnutr-PDOC - Dietary Evaluation Malnutrition Findings (Please click <Entered> for more info): Nutritional Asmnt/Malnutrition Start: 01/04/18 16: 19 Text: Status: Complete Freq: Document 01/04/18 16:19 [facility] (Rec: 01/04/18 16:37 HEN [id number]) Nutritional Asmnt/Malnutrition Patient General Information Nutritional Screening High Risk Diagnosis sepsis, pneumonitis Pertinent Medical Hx/Surgical Hx constipation, COPD, HTN, dyslipidemia, BPH Subjective Information Pt seen sleeping at time of visit. Per RN, pt ate well on pureed diet, good appetitie. Per EMR, PO intake 75% of meals. Per MD note, pt had no difficulty of chewing or swallowing noted. Current Diet Order/ Nutrition Support pureed cardiac Pertinent Medications D5-0.9%ns, piperacillin, vancomycin Pertinent Labs 01/04 Na 133, K 3.5, Cl 99, BUN 43 (improved), Cr 2.0 ( improved), glucose 210 ( increased), Ca 7.7 01/03 glucose 165, POC 179 01/02 glucose 128, A1c 6.5 Nutritional Hx/Data Height 1.75 m Height (Calculated Centimeters) 175.3 Current Weight (lbs) 68.946 kg Weight (Calculated Kilograms) 68.9 Weight (Calculated Grams) 10601.0 [place] Body Weight 160 Body Mass Index (BMI) 22.4 Weight Status Approriate GI Symptoms GI Symptoms None Last BM 01/04 Difficult in: None Skin Integrity/Comment: skin tear to left hand, excoriation to perianal area, reddeded to sacrum Current %PO Good (75-100%) Estimated Nutritional Goals BEE in Kcals: Using Current wt Calories/Kcals/Kg 25-30 Kcals Calculated 8710-1644 Protein: Using Current wt Protein g/k-1.2 Protein Calculated 68-82 Fluid: ml 1700-2040ml (1ml/kcal) Nutritional Problem 1. Problem Problem altered nutrition related lab values Etiology renal dysfunction and hyperglycemia Signs/Symptoms: BUN 43, Cr 2.0, glucose 128- 210 , a1c 6.5 Intervention/Recommendation Comments 1. Continue with current diet as ordered. If blood glucose continue high, consider adding CCHO-60gm diet for better glycemic control. 2. Monitor PO intake, wt, labs and skin integrity 3. F/U as high risk in 2-3 days, 01/06-01/07 Expected Outcomes/Goals Expected Outcomes/Goals 1. PO intake to meet at least 75% of nutritional needs. 2. Wt stability, skin to remain intact, labs to approach WNL.
[2018-01-05] MEDS: Piperacillin/Tazobact 2.25 gm in 0.9% NS 50 ML IV SCH ×3 (12:12→23:54)
[2018-01-05] MEDS: NIFEdipine 30 mg ER Tab PO SCH ×2 (12:57→21:24)
--- NOTE | 2018-01-05 14:36 | General Progress Note ---
Subjective - Review of Systems Service Date: 01/05/18 Subjective: pt doing well Objective - Results Result Diagrams: 01/05/18 04:41 01/05/18 04:41 Recent Labs: Laboratory Last Values WBC 11.8 Th/cmm (4.8-10.8) H 01/05/18 04:41 RBC 2.79 Mil/cmm (3.80-5.80) L 01/05/18 04:41 Hgb 8.4 gm/dL (12-16) L 01/05/18 04:41 Hct 25.4 % (41.0-60) L 01/05/18 04:41 MCV 90.9 fl (80-99) 01/05/18 04:41 MCH 30.0 pg (27.0-31.0) 01/05/18 04:41 MCHC Differential 32.9 pg (28.0-36.0) 01/05/18 04:41 RDW 13.7 % (11.5-20.0) 01/05/18 04:41 Plt Count 223 Th/cmm (150-400) 01/05/18 04:41 MPV 7.5 fl 01/05/18 04:41 Neutrophils % 60.8 % (40.0-80.0) 01/05/18 04:41 Band Neutrophils % 3 % (0-10) 01/03/18 05:03 Lymphocytes % 20.2 % (20.0-50.0) 01/05/18 04:41 Monocytes % 8.1 % (2.0-10.0) 01/05/18 04:41 Eosinophils % 9.9 % (0.0-5.0) H 01/05/18 04:41 Basophils % 1.0 % (0.0-2.0) 01/05/18 04:41 Neutrophils (Manual) 90 % (40-80) H 01/03/18 05:03 Lymphocytes 6 % (20-50) L 01/03/18 05:03 Monocytes 1 % (2-10) L 01/03/18 05:03 Eosinophils 0 % (0-5) 01/02/18 15:45 Basophils 0 % (0-3) 01/02/18 15:45 Platelet Estimate ADEQUATE (NORMAL) 01/03/18 05:03 PT 11.1 SECONDS (9.5-11.5) 01/02/18 16:15 INR 1.07 (0.5-1.4) 01/02/18 16:15 PTT (Actin FS) 28.2 SECONDS (26.0-38.0) 01/02/18 16:15 D-Dimer > 5000 ng/mL (100-400) H 01/02/18 15:45 Specimen Source Arterial 01/02/18 16:05 Sample Site RB 01/02/18 16:05 pH 7.49 (7.35-7.45) H 01/02/18 16:05 pCO2 32.0 mmHg (35.0-45.0) L 01/02/18 16:05 pO2 262.0 mmHg (80.0-100.0) H 01/02/18 16:05 HCO3 26.2 mEq/L (20.0-26.0) H 01/02/18 16:05 Base Excess 1.6 mEq/L (-3.0-3.0) 01/02/18 16:05 O2 Saturation 100.0 % (92.0-100.0) 01/02/18 16:05 Norm Test NA 01/02/18 16:05 Vent Rate NA 01/02/18 16:05 Inspired O2 100 01/02/18 16:05 Tidal Volume NA 01/02/18 16:05 PEEP NA 01/02/18 16:05 Pressure (ins/psv/peep) NA 01/02/18 16:05 Critical Value E.LUZ 01/02/18 16:05 Sodium 136 mEq/L (136-145) 01/05/18 04:41 Potassium 3.4 mEq/L (3.5-5.1) L 01/05/18 04:41 Chloride 104 mEq/L (98-107) 01/05/18 04:41 Carbon Dioxide 29.5 mEq/L (21.0-31.0) 01/05/18 04:41 Anion Gap 5.9 (7.0-16.0) L 01/05/18 04:41 BUN 22 mg/dL (7-25) 01/05/18 04:41 Creatinine 1.0 mg/dL (0.7-1.3) 01/05/18 04:41 Est GFR ( Amer) TNP 01/05/18 04:41 Est GFR (Non-Af Amer) TNP 01/05/18 04:41 BUN/Creatinine Ratio 22.0 01/05/18 04:41 Glucose 112 mg/dL (70-105) H 01/05/18 04:41 POC Glucose 179 MG/DL (70 - 105) H 01/03/18 00:32 Hemoglobin A1c % 6.5 % (4.0-6.0) H 01/02/18 15:45 Whole Bld Lactic Acid 1.38 mmol/L (0.60-1.99) 01/03/18 05:03 Calcium 7.7 mg/dL (8.6-10.3) L 01/05/18 04:41 Total Bilirubin 0.6 mg/dL (0.3-1.0) 01/02/18 15:45 AST 16 U/L (13-39) 01/02/18 15:45 ALT 11 U/L (7-52) 01/02/18 15:45 Alkaline Phosphatase 70 U/L (34-104) 01/02/18 15:45 Creatine Kinase 41 U/L (30-223) 01/02/18 15:45 Troponin I 0.01 ng/mL (0.01-0.05) 01/02/18 15:45 B-Natriuretic Peptide 55.9 pg/mL (5.0-100.0) 01/02/18 15:45 Total Protein 6.2 gm/dL (6.0-8.3) 01/02/18 15:45 Albumin 2.8 gm/dL (4.2-5.5) L 01/02/18 15:45 Globulin 3.4 gm/dL 01/02/18 15:45 Albumin/Globulin Ratio 0.8 (1.0-1.8) L 01/02/18 15:45 Triglycerides 96 mg/dL (<150) 01/02/18 15:45 Cholesterol 113 mg/dL (<200) 01/02/18 15:45 LDL Cholesterol Direct 65 mg/dL (75-193) L 01/02/18 15:45 HDL Cholesterol 36 mg/dL (23-92) 01/02/18 15:45 Random Vancomycin 5.5 ug/mL (5.0-40.0) 01/04/18 04:37 - Physical Exam Vitals and I&O: Vital Signs Temp 98.4 F 01/05/18 12:00 Pulse 98 01/05/18 14:00 Resp 25 01/05/18 14:00 BP 115/57 01/05/18 14:00 Pulse Ox 93 01/05/18 14:00 Intake & Output 01/04/18 01/05/18 01/05/18 18:59 06:59 18:59 Intake Total 1800 725.338 5413 Output Total 2250 1500 Balance -450 -734.957 8567 Weight (lbs) 68.946 kg 68.946 kg 68.946 kg Intake: Intake, IV Amount 1250 53.848 1300 D5-0.9%Ns 1,000 ml @ 100 1000 1000 mls/hr IV .Q10H [facility] Rx#: [id number] Norepinephrine 4 mg In 53.848 Sodium Chloride 0.9% 250 ml @ 8 MCG/MIN 30.48 mls/ hr IV TITR PRN Rx#: [id number] Piperacillin Sodium/ 50 Tazobact 2.25 gm In Sodium Chloride 0.9% 50 ml @ 100 mls/hr IV Q6H [facility] Rx#:[id number] Vancomycin HCl 1 gm In 250 250 Sodium Chloride 0.9% 250 ml @ 165 mls/hr IV Q24H [facility] Rx#:[id number] Oral 550 520 350 Output: Urine 2250 1500 Other: # Bowel Movements 0 0 Weight Source Bedscale Bedscale Bedscale Active Medications: Current Medications Acetaminophen (Tylenol) 650 mg PO Q6H PRN PRN Reason: HEADACHE/TEMP ABOVE 100F Stop: 03/03/18 19:11 Albuterol Sulfate (Albuterol 2.5mg/3ml Neb Ud) 2.5 mg HHN Q6HR [facility] Stop: 03/04/18 17:59 Last Admin: 01/05/18 12:13 Dose: 2.5 mg Budesonide (Pulmicort) 0.5 mg HHN BIDRT [facility] Stop: 03/04/18 18:59 Last Admin: 01/05/18 07:29 Dose: 0.5 mg Heparin Sodium (Porcine) (Heparin) 5,000 units SUBQ Q12HR [facility] Stop: 03/03/18 20:59 Last Admin: 01/05/18 09:10 Dose: 5,000 units Potassium Chloride 40 meq/Lidocaine HCl 25 mg/ Sodium Chloride 272.5 mls @ 68 mls/hr IV DAILY PRN PRN Reason: k level less than 3.2 Stop: 03/03/18 19:11 Magnesium Sulfate (Magnesium Sulfate Premix) 2 gm in 50 mls @ 25 mls/hr IV DAILY PRN PRN Reason: Magnesium level less than 1.6 Stop: 03/03/18 19:11 Dextrose/Sodium Chloride (D5-0.9%Ns) 1,000 mls @ 100 mls/hr IV .Q10H [facility] Stop: 03/04/18 16:41 Last Admin: 01/05/18 12:19 Dose: Not Given Vancomycin HCl 1 gm/ Sodium (Chloride) 250 mls @ 165 mls/hr IV Q24H [facility] Stop: 03/05/18 10:59 Last Infusion: 01/05/18 12:11 Dose: Infused Norepinephrine Bitartrate 4 mg (/ Sodium Chloride) 254 mls @ 30.48 mls/hr IV TITR PRN; Protocol; 8 MCG/MIN PRN Reason: BP MAINTENANCE (PER PROTOCOL) Stop: 03/03/18 20:15 Last Titration: 01/04/18 20:00 Dose: 0 mcg/min, 0 mls/hr Piperacillin Sod/Tazobactam (Sod 2.25 gm/ Sodium Chloride) 50 mls @ 100 mls/hr IV Q6H [facility] Stop: 03/06/18 11:59 Last Infusion: 01/05/18 12:42 Dose: Infused Lorazepam (Ativan) 1 mg IVP Q4HR PRN; Protocol PRN Reason: Anxiety Stop: 03/03/18 19:11 Magnesium Oxide (Mag-Oxide) 400 mg PO BID PRN PRN Reason: Mg less than 1.9 Stop: 03/03/18 19:11 Miscellaneous (Vancomycin Iv Per Pharmacy) 1 ea MC PRN PRN PRN Reason: PROTOCOL Stop: 03/03/18 19:10 Morphine Sulfate (Morphine) 1 mg IVP Q4HR PRN PRN Reason: Severe Pain Stop: 03/03/18 19:11 Nifedipine (Procardia Xl) 30 mg PO Q24H [facility] Stop: 03/03/18 19:14 Last Admin: 01/05/18 12:57 Dose: Not Given Ondansetron HCl (Zofran) 4 mg IVP Q6H PRN PRN Reason: Nausea / Vomiting Stop: 03/03/18 19:11 Potassium Chloride (Klor-Con) 40 meq PO DAILY PRN PRN Reason: k level less than 3.5 Stop: 03/03/18 19:11 Simvastatin (Zocor) 10 mg PO HS [facility] Stop: 03/03/18 20:59 Last Admin: 01/04/18 22:38 Dose: 10 mg Tamsulosin HCl (Flomax) 0.4 mg PO HS [facility] Stop: 03/03/18 20:59 Last Admin: 01/04/18 22:38 Dose: 0.4 mg Zolpidem Tartrate (Ambien) 10 mg PO HS PRN PRN Reason: Insomnia Stop: 03/03/18 19:11 Last Admin: 01/03/18 22:31 Dose: 10 mg General: Alert, Cooperative, No acute distress HEENT: Atraumatic, PERRLA, EOMI Neck: Supple, no JVD, no Thyromegaly Cardiovascular: Regular rate, Normal S1, Normal S2 Lungs: Other (has bl rales and congestion) Abdomen: Bowel sounds, Soft, no Distended Extremities: no Clubbing, no Cyanosis Neurological: Normal speech, Normal tone Psych/Mental Status: Mood NL Assessment/Plan - Problem List Patient Problems: All Active Problems SEVERE DYSPNEA WITH UMAÑA CATH PAIN (Acute) - Assessment Assessment: arf sepsis bph malfunction of Umaña - Plan Plan: renal function improving Nutritional Asmnt/Malnutr-PDOC - Dietary Evaluation Malnutrition Findings (Please click <Entered> for more info): Nutritional Asmnt/Malnutrition Start: 01/04/18 16: 19 Text: Status: Complete Freq: Document 01/04/18 16:19 [facility] (Rec: 01/04/18 16:37 LCHENG [id number]) Nutritional Asmnt/Malnutrition Patient General Information Nutritional Screening High Risk Diagnosis sepsis, pneumonitis Pertinent Medical Hx/Surgical Hx constipation, COPD, HTN, dyslipidemia, BPH Subjective Information Pt seen sleeping at time of visit. Per RN, pt ate well on pureed diet, good appetitie. Per EMR, PO intake 75% of meals. Per MD note, pt had no difficulty of chewing or swallowing noted. Current Diet Order/ Nutrition Support pureed cardiac Pertinent Medications D5-0.9%ns, piperacillin, vancomycin Pertinent Labs 01/04 Na 133, K 3.5, Cl 99, BUN 43 (improved), Cr 2.0 ( improved), glucose 210 ( increased), Ca 7.7 01/03 glucose 165, POC 179 01/02 glucose 128, A1c 6.5 Nutritional Hx/Data Height 1.75 m Height (Calculated Centimeters) 175.3 Current Weight (lbs) 68.946 kg Weight (Calculated Kilograms) 68.9 Weight (Calculated Grams) 72889.0 [place] Body Weight 160 Body Mass Index (BMI) 22.4 Weight Status Approriate GI Symptoms GI Symptoms None Last BM 01/04 Difficult in: None Skin Integrity/Comment: skin tear to left hand, excoriation to perianal area, reddeded to sacrum Current %PO Good (75-100%) Estimated Nutritional Goals BEE in Kcals: Using Current wt Calories/Kcals/Kg 25-30 Kcals Calculated 5252-1694 Protein: Using Current wt Protein g/k-1.2 Protein Calculated 68-82 Fluid: ml 1700-2040ml (1ml/kcal) Nutritional Problem 1. Problem Problem altered nutrition related lab values Etiology renal dysfunction and hyperglycemia Signs/Symptoms: BUN 43, Cr 2.0, glucose 128- 210 , a1c 6.5 Intervention/Recommendation Comments 1. Continue with current diet as ordered. If blood glucose continue high, consider adding CCHO-60gm diet for better glycemic control. 2. Monitor PO intake, wt, labs and skin integrity 3. F/U as high risk in 2-3 days, 01/06-01/07 Expected Outcomes/Goals Expected Outcomes/Goals 1. PO intake to meet at least 75% of nutritional needs. 2. Wt stability, skin to remain intact, labs to approach WNL.
[2018-01-05] MEDS ORDERED: Potassium Chloride 20 mEq ER Tab PO ONE (14:41)
--- NOTE | 2018-01-05 22:58 | Infectious Disease Prog Note ---
Infectious Disease Subjective - Review of Systems Service Date: 01/05/18 Subjective: There is no new change, no fever. Infectious Disease Objective - Results Result Diagrams: 01/06/18 04:39 01/06/18 04:39 Recent Labs: Laboratory Last Values WBC 11.8 Th/cmm (4.8-10.8) H 01/05/18 04:41 RBC 2.79 Mil/cmm (3.80-5.80) L 01/05/18 04:41 Hgb 8.4 gm/dL (12-16) L 01/05/18 04:41 Hct 25.4 % (41.0-60) L 01/05/18 04:41 MCV 90.9 fl (80-99) 01/05/18 04:41 MCH 30.0 pg (27.0-31.0) 01/05/18 04:41 MCHC Differential 32.9 pg (28.0-36.0) 01/05/18 04:41 RDW 13.7 % (11.5-20.0) 01/05/18 04:41 Plt Count 223 Th/cmm (150-400) 01/05/18 04:41 MPV 7.5 fl 01/05/18 04:41 Neutrophils % 60.8 % (40.0-80.0) 01/05/18 04:41 Band Neutrophils % 3 % (0-10) 01/03/18 05:03 Lymphocytes % 20.2 % (20.0-50.0) 01/05/18 04:41 Monocytes % 8.1 % (2.0-10.0) 01/05/18 04:41 Eosinophils % 9.9 % (0.0-5.0) H 01/05/18 04:41 Basophils % 1.0 % (0.0-2.0) 01/05/18 04:41 Neutrophils (Manual) 90 % (40-80) H 01/03/18 05:03 Lymphocytes 6 % (20-50) L 01/03/18 05:03 Monocytes 1 % (2-10) L 01/03/18 05:03 Eosinophils 0 % (0-5) 01/02/18 15:45 Basophils 0 % (0-3) 01/02/18 15:45 Platelet Estimate ADEQUATE (NORMAL) 01/03/18 05:03 PT 11.1 SECONDS (9.5-11.5) 01/02/18 16:15 INR 1.07 (0.5-1.4) 01/02/18 16:15 PTT (Actin FS) 28.2 SECONDS (26.0-38.0) 01/02/18 16:15 D-Dimer > 5000 ng/mL (100-400) H 01/02/18 15:45 Specimen Source Arterial 01/02/18 16:05 Sample Site RB 01/02/18 16:05 pH 7.49 (7.35-7.45) H 01/02/18 16:05 pCO2 32.0 mmHg (35.0-45.0) L 01/02/18 16:05 pO2 262.0 mmHg (80.0-100.0) H 01/02/18 16:05 HCO3 26.2 mEq/L (20.0-26.0) H 01/02/18 16:05 Base Excess 1.6 mEq/L (-3.0-3.0) 01/02/18 16:05 O2 Saturation 100.0 % (92.0-100.0) 01/02/18 16:05 Norm Test NA 01/02/18 16:05 Vent Rate NA 01/02/18 16:05 Inspired O2 100 01/02/18 16:05 Tidal Volume NA 01/02/18 16:05 PEEP NA 01/02/18 16:05 Pressure (ins/psv/peep) NA 01/02/18 16:05 Critical Value E.LUZ 01/02/18 16:05 Sodium 136 mEq/L (136-145) 01/05/18 04:41 Potassium 3.4 mEq/L (3.5-5.1) L 01/05/18 04:41 Chloride 104 mEq/L (98-107) 01/05/18 04:41 Carbon Dioxide 29.5 mEq/L (21.0-31.0) 01/05/18 04:41 Anion Gap 5.9 (7.0-16.0) L 01/05/18 04:41 BUN 22 mg/dL (7-25) 01/05/18 04:41 Creatinine 1.0 mg/dL (0.7-1.3) 01/05/18 04:41 Est GFR ( Amer) TNP 01/05/18 04:41 Est GFR (Non-Af Amer) TNP 01/05/18 04:41 BUN/Creatinine Ratio 22.0 01/05/18 04:41 Glucose 112 mg/dL (70-105) H 01/05/18 04:41 POC Glucose 179 MG/DL (70 - 105) H 01/03/18 00:32 Hemoglobin A1c % 6.5 % (4.0-6.0) H 01/02/18 15:45 Whole Bld Lactic Acid 1.38 mmol/L (0.60-1.99) 01/03/18 05:03 Calcium 7.7 mg/dL (8.6-10.3) L 01/05/18 04:41 Total Bilirubin 0.6 mg/dL (0.3-1.0) 01/02/18 15:45 AST 16 U/L (13-39) 01/02/18 15:45 ALT 11 U/L (7-52) 01/02/18 15:45 Alkaline Phosphatase 70 U/L (34-104) 01/02/18 15:45 Creatine Kinase 41 U/L (30-223) 01/02/18 15:45 Troponin I 0.01 ng/mL (0.01-0.05) 01/02/18 15:45 B-Natriuretic Peptide 55.9 pg/mL (5.0-100.0) 01/02/18 15:45 Total Protein 6.2 gm/dL (6.0-8.3) 01/02/18 15:45 Albumin 2.8 gm/dL (4.2-5.5) L 01/02/18 15:45 Globulin 3.4 gm/dL 01/02/18 15:45 Albumin/Globulin Ratio 0.8 (1.0-1.8) L 01/02/18 15:45 Triglycerides 96 mg/dL (<150) 01/02/18 15:45 Cholesterol 113 mg/dL (<200) 01/02/18 15:45 LDL Cholesterol Direct 65 mg/dL (75-193) L 01/02/18 15:45 HDL Cholesterol 36 mg/dL (23-92) 01/02/18 15:45 Random Vancomycin 5.5 ug/mL (5.0-40.0) 01/04/18 04:37 - Physical Exam Vitals and I&O: Vital Signs Temp 98 F 01/05/18 20:00 Pulse 90 01/05/18 21:24 Resp 20 01/05/18 22:14 BP 120/71 01/05/18 21:24 Pulse Ox 94 01/05/18 21:00 Intake & Output 01/05/18 01/05/18 01/06/18 06:59 18:59 06:59 Intake Total 485.956 8283.333 Output Total 1500 1100 Balance -941.029 1051.333 Weight (lbs) 68.946 kg 68.946 kg Intake: Intake, IV Amount 53.848 2238.333 D5-0.9%Ns 1,000 ml @ 100 1888.333 mls/hr IV .Q10H [facility] Rx#: [id number] Norepinephrine 4 mg In 53.848 Sodium Chloride 0.9% 250 ml @ 8 MCG/MIN 30.48 mls/ hr IV TITR PRN Rx#: [id number] Piperacillin Sodium/ 100 Tazobact 2.25 gm In Sodium Chloride 0.9% 50 ml @ 100 mls/hr IV Q6H [facility] Rx#:[id number] Vancomycin HCl 1 gm In 250 Sodium Chloride 0.9% 250 ml @ 165 mls/hr IV Q24H [facility] Rx#:[id number] Oral 520 900 Output: Urine 1500 1100 Stool 0 Other: # Bowel Movements 0 Weight Source Bedscale Bedscale Active Medications: Current Medications Acetaminophen (Tylenol) 650 mg PO Q6H PRN PRN Reason: HEADACHE/TEMP ABOVE 100F Stop: 03/03/18 19:11 Albuterol Sulfate (Albuterol 2.5mg/3ml Neb Ud) 2.5 mg HHN Q6HR [facility] Stop: 03/04/18 17:59 Last Admin: 01/05/18 19:31 Dose: 2.5 mg Budesonide (Pulmicort) 0.5 mg HHN BIDRT [facility] Stop: 03/04/18 18:59 Last Admin: 01/05/18 19:31 Dose: 0.5 mg Heparin Sodium (Porcine) (Heparin) 5,000 units SUBQ Q12HR [facility] Stop: 03/03/18 20:59 Last Admin: 01/05/18 21:36 Dose: 5,000 units Potassium Chloride 40 meq/Lidocaine HCl 25 mg/ Sodium Chloride 272.5 mls @ 68 mls/hr IV DAILY PRN PRN Reason: k level less than 3.2 Stop: 03/03/18 19:11 Magnesium Sulfate (Magnesium Sulfate Premix) 2 gm in 50 mls @ 25 mls/hr IV DAILY PRN PRN Reason: Magnesium level less than 1.6 Stop: 03/03/18 19:11 Dextrose/Sodium Chloride (D5-0.9%Ns) 1,000 mls @ 100 mls/hr IV .Q10H [facility] Stop: 03/04/18 16:41 Last Admin: 01/05/18 17:53 Dose: 100 mls/hr Vancomycin HCl 1 gm/ Sodium (Chloride) 250 mls @ 165 mls/hr IV Q24H [facility] Stop: 03/05/18 10:59 Last Infusion: 01/05/18 12:11 Dose: Infused Norepinephrine Bitartrate 4 mg (/ Sodium Chloride) 254 mls @ 30.48 mls/hr IV TITR PRN; Protocol; 8 MCG/MIN PRN Reason: BP MAINTENANCE (PER PROTOCOL) Stop: 03/03/18 20:15 Last Titration: 01/04/18 20:00 Dose: 0 mcg/min, 0 mls/hr Piperacillin Sod/Tazobactam (Sod 2.25 gm/ Sodium Chloride) 50 mls @ 100 mls/hr IV Q6H [facility] Stop: 03/06/18 11:59 Last Infusion: 01/05/18 18:24 Dose: Infused Lorazepam (Ativan) 1 mg IVP Q4HR PRN; Protocol PRN Reason: Anxiety Stop: 03/03/18 19:11 Magnesium Oxide (Mag-Oxide) 400 mg PO BID PRN PRN Reason: Mg less than 1.9 Stop: 03/03/18 19:11 Miscellaneous (Vancomycin Iv Per Pharmacy) 1 ea MC PRN PRN PRN Reason: PROTOCOL Stop: 03/03/18 19:10 Morphine Sulfate (Morphine) 1 mg IVP Q4HR PRN PRN Reason: Severe Pain Stop: 03/03/18 19:11 Nifedipine (Procardia Xl) 30 mg PO Q24H [facility] Stop: 03/03/18 19:14 Last Admin: 01/05/18 21:24 Dose: Not Given Ondansetron HCl (Zofran) 4 mg IVP Q6H PRN PRN Reason: Nausea / Vomiting Stop: 03/03/18 19:11 Potassium Chloride (Klor-Con) 40 meq PO DAILY PRN PRN Reason: k level less than 3.5 Stop: 03/03/18 19:11 Simvastatin (Zocor) 10 mg PO HS [facility] Stop: 03/03/18 20:59 Last Admin: 01/05/18 21:35 Dose: 10 mg Tamsulosin HCl (Flomax) 0.4 mg PO HS [facility] Stop: 03/03/18 20:59 Last Admin: 01/05/18 21:35 Dose: 0.4 mg Zolpidem Tartrate (Ambien) 10 mg PO HS PRN PRN Reason: Insomnia Stop: 03/03/18 19:11 Last Admin: 01/03/18 22:31 Dose: 10 mg General: no acute distress, well developed, well nourished HEENT: atraumatic, normocephalic, PERRLA, EOMI Neck: supple, no thyromegaly Cardiovascular: S1S2, regular Lungs: clear to auscultation bilaterally, clear to percussion Abdomen: soft, no tender, no distended Extremities: no cyanosis, no clubbing, no edema Neurological: awake, alert, oriented Skin: intact Infectious Disease Assmt/Plan - Problem List Patient Problems: All Active Problems SEVERE DYSPNEA WITH UMAÑA CATH PAIN (Acute) - Assessment Assessment: 1. Septic shock. Severe sepsis. The lactic acidosis and hypotension. Sepsis. Improved. 2. Pneumonia. 3. UTI. Complicated with hydronephrosis. Pyelonephritis. 4. MRSA sepsis. 5. BPH. 6. Pulmonary fibrosis [as per CT scan chest report]. 7. History of hypertension, currently hypotensive receiving Levophed. 8. History of COPD. 9. History of dyslipidemia. 10. Acute renal failure, likely obstructive uropathy. 11. Acute renal failure improving, 2/2 obstructive uropathy/ BPH. - Plan Plan: Will continue vanco IV and Zosyn. Nutritional Asmnt/Malnutr-PDOC - Dietary Evaluation Malnutrition Findings (Please click <Entered> for more info): Nutritional Asmnt/Malnutrition Start: 01/04/18 16: 19 Text: Status: Complete Freq: Document 01/04/18 16:19 [facility] (Rec: 01/04/18 16:37 [id number]) Nutritional Asmnt/Malnutrition Patient General Information Nutritional Screening High Risk Diagnosis sepsis, pneumonitis Pertinent Medical Hx/Surgical Hx constipation, COPD, HTN, dyslipidemia, BPH Subjective Information Pt seen sleeping at time of visit. Per RN, pt ate well on pureed diet, good appetitie. Per EMR, PO intake 75% of meals. Per MD note, pt had no difficulty of chewing or swallowing noted. Current Diet Order/ Nutrition Support pureed cardiac Pertinent Medications D5-0.9%ns, piperacillin, vancomycin Pertinent Labs 01/04 Na 133, K 3.5, Cl 99, BUN 43 (improved), Cr 2.0 ( improved), glucose 210 ( increased), Ca 7.7 01/03 glucose 165, POC 179 01/02 glucose 128, A1c 6.5 Nutritional Hx/Data Height 1.75 m Height (Calculated Centimeters) 175.3 Current Weight (lbs) 68.946 kg Weight (Calculated Kilograms) 68.9 Weight (Calculated Grams) 72284.0 [place] Body Weight 160 Body Mass Index (BMI) 22.4 Weight Status Approriate GI Symptoms GI Symptoms None Last BM 01/04 Difficult in: None Skin Integrity/Comment: skin tear to left hand, excoriation to perianal area, reddeded to sacrum Current %PO Good (75-100%) Estimated Nutritional Goals BEE in Kcals: Using Current wt Calories/Kcals/Kg 25-30 Kcals Calculated 6759-2937 Protein: Using Current wt Protein g/k-1.2 Protein Calculated 68-82 Fluid: ml 1700-2040ml (1ml/kcal) Nutritional Problem 1. Problem Problem altered nutrition related lab values Etiology renal dysfunction and hyperglycemia Signs/Symptoms: BUN 43, Cr 2.0, glucose 128- 210 , a1c 6.5 Intervention/Recommendation Comments 1. Continue with current diet as ordered. If blood glucose continue high, consider adding CCHO-60gm diet for better glycemic control. 2. Monitor PO intake, wt, labs and skin integrity 3. F/U as high risk in 2-3 days, 01/06-01/07 Expected Outcomes/Goals Expected Outcomes/Goals 1. PO intake to meet at least 75% of nutritional needs. 2. Wt stability, skin to remain intact, labs to approach WNL.
[2018-01-06] MEDS: Albuterol Nebulizer 2.5mg/3mL HHN SCH ×4 (00:41→18:51)
[2018-01-06 04:55] LABS: % BASOPHILS 1.6 % (0.0-2.0); % EOSINOPHILS 12.5 % (0.0-5.0); % LYMPHOCYTES 20.1 % (20.0-50.0); % NEUTROPHILS 57.8 % (40.0-80.0); BASOPHILE ABSOLUTE 0.2 Th/cumm (0-0.2); EOSINOPHILE ABSOLUTE 1.4 Th/cmm (0.1-0.4); HEMATOCRIT 27.2 % (41.0-60); HEMOGLOBIN 9.1 gm/dL (12-16); LYMPHOCYTE ABSOLUTE 2.2 Th/cmm (1.5-3.0); MEAN CELL VOLUME 90.3 fl (80-99); MEAN CORPUSCULAR HEMOGLOBIN 30.2 pg (27.0-31.0); MEAN CORPUSCULAR HGB CONC 33.5 pg (28.0-36.0); MEAN PLATELET VOLUME 7.3 fl; MONOCYTE ABSOLUTE 0.9 Th/cmm (0.3-1.0); NEUTROPHILE ABSOLUTE 6.1 Th/cmm (1.8-8.0); PLATELET COUNT 228 Th/cmm (150-400); RED BLOOD COUNT 3.01 Mil/cmm (3.80-5.80); RED CELL DISTRIBUTION WIDTH 14.2 % (11.5-20.0); WHITE BLOOD COUNT 10.8 Th/cmm (4.8-10.8)
[2018-01-06 05:17] LABS: ANION GAP 7.8 (7.0-16.0); BUN - UREA NITROGEN 14 mg/dL (7-25); CALCIUM SERUM 7.6 mg/dL (8.6-10.3); CARBON DIOXIDE 27.8 mEq/L (21.0-31.0); CHLORIDE 104 mEq/L (98-107); CREATININE - SERUM 0.8 mg/dL (0.7-1.3); GLUCOSE 125 mg/dL (70-105); POTASSIUM SERUM 3.6 mEq/L (3.5-5.1); SODIUM SERUM 136 mEq/L (136-145)
[2018-01-06] MEDS: Piperacillin/Tazobact 2.25 gm in 0.9% NS 50 ML IV SCH ×3 (06:15→17:49)
[2018-01-06] MEDS: D5-0.9%NS 1,000 ML IV SCH ×2 (06:16→21:45)
[2018-01-06] MEDS: Budesonide 0.5 Mg/2 mL Ud HHN SCH ×2 (07:28→18:51)
--- NOTE | 2018-01-06 09:53 | General Progress Note ---
Subjective - Review of Systems Service Date: 01/06/18 Subjective: Pt seen and eval. More awake and alert today. Making jokes. No n,v,d or cp. His grandson and grand daughter are at the bedside. Dr. Blount saw pt on 01/03/18 and checked on the shannon. Pt has good urine output. He's on Vanco and Zosyn. Blood cx positive for MRSA. No fevers right now. Off levophed now. No headaches. Has some confusion, but improved from yesterday. No difficulty swallowing. Eating now. No abd pain. No sob at rest. No dysuria right now. No psychosis. Objective - Results Result Diagrams: 01/06/18 04:39 01/06/18 04:39 Recent Labs: Laboratory Last Values WBC 10.8 Th/cmm (4.8-10.8) 01/06/18 04:39 RBC 3.01 Mil/cmm (3.80-5.80) L 01/06/18 04:39 Hgb 9.1 gm/dL (12-16) L 01/06/18 04:39 Hct 27.2 % (41.0-60) L 01/06/18 04:39 MCV 90.3 fl (80-99) 01/06/18 04:39 MCH 30.2 pg (27.0-31.0) 01/06/18 04:39 MCHC Differential 33.5 pg (28.0-36.0) 01/06/18 04:39 RDW 14.2 % (11.5-20.0) 01/06/18 04:39 Plt Count 228 Th/cmm (150-400) 01/06/18 04:39 MPV 7.3 fl 01/06/18 04:39 Neutrophils % 57.8 % (40.0-80.0) 01/06/18 04:39 Band Neutrophils % 3 % (0-10) 01/03/18 05:03 Lymphocytes % 20.1 % (20.0-50.0) 01/06/18 04:39 Monocytes % 8.0 % (2.0-10.0) 01/06/18 04:39 Eosinophils % 12.5 % (0.0-5.0) H 01/06/18 04:39 Basophils % 1.6 % (0.0-2.0) 01/06/18 04:39 Neutrophils (Manual) 90 % (40-80) H 01/03/18 05:03 Lymphocytes 6 % (20-50) L 01/03/18 05:03 Monocytes 1 % (2-10) L 01/03/18 05:03 Eosinophils 0 % (0-5) 01/02/18 15:45 Basophils 0 % (0-3) 01/02/18 15:45 Platelet Estimate ADEQUATE (NORMAL) 01/03/18 05:03 PT 11.1 SECONDS (9.5-11.5) 01/02/18 16:15 INR 1.07 (0.5-1.4) 01/02/18 16:15 PTT (Actin FS) 28.2 SECONDS (26.0-38.0) 01/02/18 16:15 D-Dimer > 5000 ng/mL (100-400) H 01/02/18 15:45 Specimen Source Arterial 01/02/18 16:05 Sample Site RB 01/02/18 16:05 pH 7.49 (7.35-7.45) H 01/02/18 16:05 pCO2 32.0 mmHg (35.0-45.0) L 01/02/18 16:05 pO2 262.0 mmHg (80.0-100.0) H 01/02/18 16:05 HCO3 26.2 mEq/L (20.0-26.0) H 01/02/18 16:05 Base Excess 1.6 mEq/L (-3.0-3.0) 01/02/18 16:05 O2 Saturation 100.0 % (92.0-100.0) 01/02/18 16:05 Norm Test NA 01/02/18 16:05 Vent Rate NA 01/02/18 16:05 Inspired O2 100 01/02/18 16:05 Tidal Volume NA 01/02/18 16:05 PEEP NA 01/02/18 16:05 Pressure (ins/psv/peep) NA 01/02/18 16:05 Critical Value E.LUZ 01/02/18 16:05 Sodium 136 mEq/L (136-145) 01/06/18 04:39 Potassium 3.6 mEq/L (3.5-5.1) 01/06/18 04:39 Chloride 104 mEq/L (98-107) 01/06/18 04:39 Carbon Dioxide 27.8 mEq/L (21.0-31.0) 01/06/18 04:39 Anion Gap 7.8 (7.0-16.0) 01/06/18 04:39 BUN 14 mg/dL (7-25) 01/06/18 04:39 Creatinine 0.8 mg/dL (0.7-1.3) 01/06/18 04:39 Est GFR ( Amer) TNP 01/06/18 04:39 Est GFR (Non-Af Amer) TNP 01/06/18 04:39 BUN/Creatinine Ratio 17.5 01/06/18 04:39 Glucose 125 mg/dL (70-105) H 01/06/18 04:39 POC Glucose 179 MG/DL (70 - 105) H 01/03/18 00:32 Hemoglobin A1c % 6.5 % (4.0-6.0) H 01/02/18 15:45 Whole Bld Lactic Acid 1.38 mmol/L (0.60-1.99) 01/03/18 05:03 Calcium 7.6 mg/dL (8.6-10.3) L 01/06/18 04:39 Total Bilirubin 0.6 mg/dL (0.3-1.0) 01/02/18 15:45 AST 16 U/L (13-39) 01/02/18 15:45 ALT 11 U/L (7-52) 01/02/18 15:45 Alkaline Phosphatase 70 U/L (34-104) 01/02/18 15:45 Creatine Kinase 41 U/L (30-223) 01/02/18 15:45 Troponin I 0.01 ng/mL (0.01-0.05) 01/02/18 15:45 B-Natriuretic Peptide 55.9 pg/mL (5.0-100.0) 01/02/18 15:45 Total Protein 6.2 gm/dL (6.0-8.3) 01/02/18 15:45 Albumin 2.8 gm/dL (4.2-5.5) L 01/02/18 15:45 Globulin 3.4 gm/dL 01/02/18 15:45 Albumin/Globulin Ratio 0.8 (1.0-1.8) L 01/02/18 15:45 Triglycerides 96 mg/dL (<150) 01/02/18 15:45 Cholesterol 113 mg/dL (<200) 01/02/18 15:45 LDL Cholesterol Direct 65 mg/dL (75-193) L 01/02/18 15:45 HDL Cholesterol 36 mg/dL (23-92) 01/02/18 15:45 Random Vancomycin 5.5 ug/mL (5.0-40.0) 01/04/18 04:37 - Physical Exam Vitals and I&O: Vital Signs Temp 98 F 01/06/18 04:00 Pulse 92 01/06/18 07:28 Resp 20 01/06/18 07:28 BP 127/69 01/06/18 06:00 Pulse Ox 100 01/06/18 07:28 Intake & Output 01/05/18 01/06/18 01/06/18 18:59 06:59 18:59 Intake Total 3138.333 1580.000 Output Total 1100 1000 Balance 2038.333 580.000 Weight (lbs) 68.946 kg 68.946 kg Intake: Intake, IV Amount 2238.333 1100.000 D5-0.9%Ns 1,000 ml @ 100 9649.533 3025.000 mls/hr IV .Q10H [facility] Rx#: [id number] Piperacillin Sodium/ 100 100 Tazobact 2.25 gm In Sodium Chloride 0.9% 50 ml @ 100 mls/hr IV Q6H [facility] Rx#:[id number] Vancomycin HCl 1 gm In 250 Sodium Chloride 0.9% 250 ml @ 165 mls/hr IV Q24H [facility] Rx#:[id number] Oral 900 480 Output: Urine 1100 1000 Stool 0 Other: # Bowel Movements 0 Weight Source Bedscale Bedscale Active Medications: Current Medications Acetaminophen (Tylenol) 650 mg PO Q6H PRN PRN Reason: HEADACHE/TEMP ABOVE 100F Stop: 03/03/18 19:11 Albuterol Sulfate (Albuterol 2.5mg/3ml Neb Ud) 2.5 mg HHN Q6HR [facility] Stop: 03/04/18 17:59 Last Admin: 01/06/18 07:11 Dose: 2.5 mg Budesonide (Pulmicort) 0.5 mg HHN BIDRT [facility] Stop: 03/04/18 18:59 Last Admin: 01/06/18 07:28 Dose: 0.5 mg Heparin Sodium (Porcine) (Heparin) 5,000 units SUBQ Q12HR [facility] Stop: 03/03/18 20:59 Last Admin: 01/06/18 09:16 Dose: 5,000 units Potassium Chloride 40 meq/Lidocaine HCl 25 mg/ Sodium Chloride 272.5 mls @ 68 mls/hr IV DAILY PRN PRN Reason: k level less than 3.2 Stop: 03/03/18 19:11 Magnesium Sulfate (Magnesium Sulfate Premix) 2 gm in 50 mls @ 25 mls/hr IV DAILY PRN PRN Reason: Magnesium level less than 1.6 Stop: 03/03/18 19:11 Dextrose/Sodium Chloride (D5-0.9%Ns) 1,000 mls @ 100 mls/hr IV .Q10H [facility] Stop: 03/04/18 16:41 Last Admin: 01/06/18 06:16 Dose: 100 mls/hr Vancomycin HCl 1 gm/ Sodium (Chloride) 250 mls @ 165 mls/hr IV Q24H [facility] Stop: 03/05/18 10:59 Last Infusion: 01/05/18 12:11 Dose: Infused Norepinephrine Bitartrate 4 mg (/ Sodium Chloride) 254 mls @ 30.48 mls/hr IV TITR PRN; Protocol; 8 MCG/MIN PRN Reason: BP MAINTENANCE (PER PROTOCOL) Stop: 03/03/18 20:15 Last Titration: 01/04/18 20:00 Dose: 0 mcg/min, 0 mls/hr Piperacillin Sod/Tazobactam (Sod 2.25 gm/ Sodium Chloride) 50 mls @ 100 mls/hr IV Q6H [facility] Stop: 03/06/18 11:59 Last Infusion: 01/06/18 06:45 Dose: Infused Lorazepam (Ativan) 1 mg IVP Q4HR PRN; Protocol PRN Reason: Anxiety Stop: 03/03/18 19:11 Magnesium Oxide (Mag-Oxide) 400 mg PO BID PRN PRN Reason: Mg less than 1.9 Stop: 03/03/18 19:11 Miscellaneous (Vancomycin Iv Per Pharmacy) 1 ea MC PRN PRN PRN Reason: PROTOCOL Stop: 03/03/18 19:10 Morphine Sulfate (Morphine) 1 mg IVP Q4HR PRN PRN Reason: Severe Pain Stop: 03/03/18 19:11 Nifedipine (Procardia Xl) 30 mg PO Q24H [facility] Stop: 03/03/18 19:14 Last Admin: 01/05/18 21:24 Dose: Not Given Ondansetron HCl (Zofran) 4 mg IVP Q6H PRN PRN Reason: Nausea / Vomiting Stop: 03/03/18 19:11 Potassium Chloride (Klor-Con) 40 meq PO DAILY PRN PRN Reason: k level less than 3.5 Stop: 03/03/18 19:11 Simvastatin (Zocor) 10 mg PO HS [facility] Stop: 03/03/18 20:59 Last Admin: 01/05/18 21:35 Dose: 10 mg Tamsulosin HCl (Flomax) 0.4 mg PO HS [facility] Stop: 03/03/18 20:59 Last Admin: 01/05/18 21:35 Dose: 0.4 mg Zolpidem Tartrate (Ambien) 10 mg PO HS PRN PRN Reason: Insomnia Stop: 03/03/18 19:11 Last Admin: 01/03/18 22:31 Dose: 10 mg General: Alert, Cooperative, No acute distress HEENT: Atraumatic, PERRLA, EOMI Neck: Supple, no JVD, no Thyromegaly Cardiovascular: Regular rate, Normal S1, Normal S2 Lungs: Other (has bl rales and congestion) Abdomen: Bowel sounds, Soft, no Distended Extremities: no Clubbing, no Cyanosis Neurological: Normal speech, Normal tone Psych/Mental Status: Mood NL Assessment/Plan - Problem List Patient Problems: All Active Problems SEVERE DYSPNEA WITH SHANNON CATH PAIN (Acute) - Assessment Assessment: Septic shock due to MRSA bacteremia Acute urinary retention with BPH Asp PNA VMN Anemia of Ch Ill Acute resp fail Hyponatremia - Plan Plan: Dr. Blount saw pt on 01/03/18 and checked on the shannon. Pt has good urine output. He's on Vanco and Zosyn. Blood cx positive for MRSA No fevers right now. Off Levophed since 01/04/18. No headaches. Has some confusion, but improved from yesterday. No difficulty swallowing. Eating now. No abd pain. No sob at rest. No dysuria right now. No psychosis. Pt is being seeing by Nephro and Pulm as well. FU on cbc and chem 7. Met with family member at bedside and answered questions. Today his son is visiting. Pt may transfer to Tele. Nutritional Asmnt/Malnutr-PDOC - Dietary Evaluation Malnutrition Findings (Please click <Entered> for more info): Nutritional Asmnt/Malnutrition Start: 01/04/18 16: 19 Text: Status: Complete Freq: Document 01/04/18 16:19 [facility] (Rec: 01/04/18 16:37 [id number] Nutritional Asmnt/Malnutrition Patient General Information Nutritional Screening High Risk Diagnosis sepsis, pneumonitis Pertinent Medical Hx/Surgical Hx constipation, COPD, HTN, dyslipidemia, BPH Subjective Information Pt seen sleeping at time of visit. Per RN, pt ate well on pureed diet, good appetitie. Per EMR, PO intake 75% of meals. Per MD note, pt had no difficulty of chewing or swallowing noted. Current Diet Order/ Nutrition Support pureed cardiac Pertinent Medications D5-0.9%ns, piperacillin, vancomycin Pertinent Labs 01/04 Na 133, K 3.5, Cl 99, BUN 43 (improved), Cr 2.0 ( improved), glucose 210 ( increased), Ca 7.7 01/03 glucose 165, POC 179 01/02 glucose 128, A1c 6.5 Nutritional Hx/Data Height 1.75 m Height (Calculated Centimeters) 175.3 Current Weight (lbs) 68.946 kg Weight (Calculated Kilograms) 68.9 Weight (Calculated Grams) 27446.0 [place] Body Weight 160 Body Mass Index (BMI) 22.4 Weight Status Approriate GI Symptoms GI Symptoms None Last BM 01/04 Difficult in: None Skin Integrity/Comment: skin tear to left hand, excoriation to perianal area, reddeded to sacrum Current %PO Good (75-100%) Estimated Nutritional Goals BEE in Kcals: Using Current wt Calories/Kcals/Kg 25-30 Kcals Calculated 0898-5711 Protein: Using Current wt Protein g/k-1.2 Protein Calculated 68-82 Fluid: ml 1700-2040ml (1ml/kcal) Nutritional Problem 1. Problem Problem altered nutrition related lab values Etiology renal dysfunction and hyperglycemia Signs/Symptoms: BUN 43, Cr 2.0, glucose 128- 210 , a1c 6.5 Intervention/Recommendation Comments 1. Continue with current diet as ordered. If blood glucose continue high, consider adding CCHO-60gm diet for better glycemic control. 2. Monitor PO intake, wt, labs and skin integrity 3. F/U as high risk in 2-3 days, 01/06-01/07 Expected Outcomes/Goals Expected Outcomes/Goals 1. PO intake to meet at least 75% of nutritional needs. 2. Wt stability, skin to remain intact, labs to approach WNL.
--- NOTE | 2018-01-06 15:30 | General Progress Note ---
Subjective - Review of Systems Service Date: 01/06/18 Subjective: pt doing well Objective - Results Result Diagrams: 01/06/18 04:39 01/06/18 04:39 Recent Labs: Laboratory Last Values WBC 10.8 Th/cmm (4.8-10.8) 01/06/18 04:39 RBC 3.01 Mil/cmm (3.80-5.80) L 01/06/18 04:39 Hgb 9.1 gm/dL (12-16) L 01/06/18 04:39 Hct 27.2 % (41.0-60) L 01/06/18 04:39 MCV 90.3 fl (80-99) 01/06/18 04:39 MCH 30.2 pg (27.0-31.0) 01/06/18 04:39 MCHC Differential 33.5 pg (28.0-36.0) 01/06/18 04:39 RDW 14.2 % (11.5-20.0) 01/06/18 04:39 Plt Count 228 Th/cmm (150-400) 01/06/18 04:39 MPV 7.3 fl 01/06/18 04:39 Neutrophils % 57.8 % (40.0-80.0) 01/06/18 04:39 Band Neutrophils % 3 % (0-10) 01/03/18 05:03 Lymphocytes % 20.1 % (20.0-50.0) 01/06/18 04:39 Monocytes % 8.0 % (2.0-10.0) 01/06/18 04:39 Eosinophils % 12.5 % (0.0-5.0) H 01/06/18 04:39 Basophils % 1.6 % (0.0-2.0) 01/06/18 04:39 Neutrophils (Manual) 90 % (40-80) H 01/03/18 05:03 Lymphocytes 6 % (20-50) L 01/03/18 05:03 Monocytes 1 % (2-10) L 01/03/18 05:03 Eosinophils 0 % (0-5) 01/02/18 15:45 Basophils 0 % (0-3) 01/02/18 15:45 Platelet Estimate ADEQUATE (NORMAL) 01/03/18 05:03 PT 11.1 SECONDS (9.5-11.5) 01/02/18 16:15 INR 1.07 (0.5-1.4) 01/02/18 16:15 PTT (Actin FS) 28.2 SECONDS (26.0-38.0) 01/02/18 16:15 D-Dimer > 5000 ng/mL (100-400) H 01/02/18 15:45 Specimen Source Arterial 01/02/18 16:05 Sample Site RB 01/02/18 16:05 pH 7.49 (7.35-7.45) H 01/02/18 16:05 pCO2 32.0 mmHg (35.0-45.0) L 01/02/18 16:05 pO2 262.0 mmHg (80.0-100.0) H 01/02/18 16:05 HCO3 26.2 mEq/L (20.0-26.0) H 01/02/18 16:05 Base Excess 1.6 mEq/L (-3.0-3.0) 01/02/18 16:05 O2 Saturation 100.0 % (92.0-100.0) 01/02/18 16:05 Norm Test NA 01/02/18 16:05 Vent Rate NA 01/02/18 16:05 Inspired O2 100 01/02/18 16:05 Tidal Volume NA 01/02/18 16:05 PEEP NA 01/02/18 16:05 Pressure (ins/psv/peep) NA 01/02/18 16:05 Critical Value E.LUZ 01/02/18 16:05 Sodium 136 mEq/L (136-145) 01/06/18 04:39 Potassium 3.6 mEq/L (3.5-5.1) 01/06/18 04:39 Chloride 104 mEq/L (98-107) 01/06/18 04:39 Carbon Dioxide 27.8 mEq/L (21.0-31.0) 01/06/18 04:39 Anion Gap 7.8 (7.0-16.0) 01/06/18 04:39 BUN 14 mg/dL (7-25) 01/06/18 04:39 Creatinine 0.8 mg/dL (0.7-1.3) 01/06/18 04:39 Est GFR ( Amer) TNP 01/06/18 04:39 Est GFR (Non-Af Amer) TNP 01/06/18 04:39 BUN/Creatinine Ratio 17.5 01/06/18 04:39 Glucose 125 mg/dL (70-105) H 01/06/18 04:39 POC Glucose 179 MG/DL (70 - 105) H 01/03/18 00:32 Hemoglobin A1c % 6.5 % (4.0-6.0) H 01/02/18 15:45 Whole Bld Lactic Acid 1.38 mmol/L (0.60-1.99) 01/03/18 05:03 Calcium 7.6 mg/dL (8.6-10.3) L 01/06/18 04:39 Total Bilirubin 0.6 mg/dL (0.3-1.0) 01/02/18 15:45 AST 16 U/L (13-39) 01/02/18 15:45 ALT 11 U/L (7-52) 01/02/18 15:45 Alkaline Phosphatase 70 U/L (34-104) 01/02/18 15:45 Creatine Kinase 41 U/L (30-223) 01/02/18 15:45 Troponin I 0.01 ng/mL (0.01-0.05) 01/02/18 15:45 B-Natriuretic Peptide 55.9 pg/mL (5.0-100.0) 01/02/18 15:45 Total Protein 6.2 gm/dL (6.0-8.3) 01/02/18 15:45 Albumin 2.8 gm/dL (4.2-5.5) L 01/02/18 15:45 Globulin 3.4 gm/dL 01/02/18 15:45 Albumin/Globulin Ratio 0.8 (1.0-1.8) L 01/02/18 15:45 Triglycerides 96 mg/dL (<150) 01/02/18 15:45 Cholesterol 113 mg/dL (<200) 01/02/18 15:45 LDL Cholesterol Direct 65 mg/dL (75-193) L 01/02/18 15:45 HDL Cholesterol 36 mg/dL (23-92) 01/02/18 15:45 Random Vancomycin 5.5 ug/mL (5.0-40.0) 01/04/18 04:37 - Physical Exam Vitals and I&O: Vital Signs Temp 98.8 F 01/06/18 12:00 Pulse 103 01/06/18 14:00 Resp 28 01/06/18 14:00 BP 137/70 01/06/18 14:00 Pulse Ox 97 01/06/18 14:00 Intake & Output 01/05/18 01/06/18 01/06/18 18:59 06:59 18:59 Intake Total 3138.333 1580.000 300 Output Total 1100 1000 Balance 2038.333 580.000 300 Weight (lbs) 68.946 kg 68.946 kg 68.946 kg Intake: Intake, IV Amount 2238.333 1100.000 D5-0.9%Ns 1,000 ml @ 100 8049.640 5675.000 mls/hr IV .Q10H [facility] Rx#: [id number] Piperacillin Sodium/ 100 100 Tazobact 2.25 gm In Sodium Chloride 0.9% 50 ml @ 100 mls/hr IV Q6H [facility] Rx#:[id number] Vancomycin HCl 1 gm In 250 Sodium Chloride 0.9% 250 ml @ 165 mls/hr IV Q24H [facility] Rx#:[id number] Oral 900 480 300 Output: Urine 1100 1000 Stool 0 Other: # Bowel Movements 0 Weight Source Bedscale Bedscale Bedscale Active Medications: Current Medications Acetaminophen (Tylenol) 650 mg PO Q6H PRN PRN Reason: HEADACHE/TEMP ABOVE 100F Stop: 03/03/18 19:11 Albuterol Sulfate (Albuterol 2.5mg/3ml Neb Ud) 2.5 mg HHN Q6HR [facility] Stop: 03/04/18 17:59 Last Admin: 01/06/18 13:36 Dose: 2.5 mg Budesonide (Pulmicort) 0.5 mg HHN BIDRT [facility] Stop: 03/04/18 18:59 Last Admin: 01/06/18 07:28 Dose: 0.5 mg Heparin Sodium (Porcine) (Heparin) 5,000 units SUBQ Q12HR [facility] Stop: 03/03/18 20:59 Last Admin: 01/06/18 09:16 Dose: 5,000 units Potassium Chloride 40 meq/Lidocaine HCl 25 mg/ Sodium Chloride 272.5 mls @ 68 mls/hr IV DAILY PRN PRN Reason: k level less than 3.2 Stop: 03/03/18 19:11 Magnesium Sulfate (Magnesium Sulfate Premix) 2 gm in 50 mls @ 25 mls/hr IV DAILY PRN PRN Reason: Magnesium level less than 1.6 Stop: 03/03/18 19:11 Dextrose/Sodium Chloride (D5-0.9%Ns) 1,000 mls @ 100 mls/hr IV .Q10H [facility] Stop: 03/04/18 16:41 Last Admin: 01/06/18 06:16 Dose: 100 mls/hr Vancomycin HCl 1 gm/ Sodium (Chloride) 250 mls @ 165 mls/hr IV Q24H [facility] Stop: 03/05/18 10:59 Last Admin: 01/06/18 11:46 Dose: 165 mls/hr Norepinephrine Bitartrate 4 mg (/ Sodium Chloride) 254 mls @ 30.48 mls/hr IV TITR PRN; Protocol; 8 MCG/MIN PRN Reason: BP MAINTENANCE (PER PROTOCOL) Stop: 03/03/18 20:15 Last Titration: 01/04/18 20:00 Dose: 0 mcg/min, 0 mls/hr Piperacillin Sod/Tazobactam (Sod 2.25 gm/ Sodium Chloride) 50 mls @ 100 mls/hr IV Q6H [facility] Stop: 03/06/18 11:59 Last Admin: 01/06/18 11:49 Dose: 100 mls/hr Lorazepam (Ativan) 1 mg IVP Q4HR PRN; Protocol PRN Reason: Anxiety Stop: 03/03/18 19:11 Magnesium Oxide (Mag-Oxide) 400 mg PO BID PRN PRN Reason: Mg less than 1.9 Stop: 03/03/18 19:11 Miscellaneous (Vancomycin Iv Per Pharmacy) 1 ea MC PRN PRN PRN Reason: PROTOCOL Stop: 03/03/18 19:10 Morphine Sulfate (Morphine) 1 mg IVP Q4HR PRN PRN Reason: Severe Pain Stop: 03/03/18 19:11 Nifedipine (Procardia Xl) 30 mg PO Q24H [facility] Stop: 03/03/18 19:14 Last Admin: 01/05/18 21:24 Dose: Not Given Ondansetron HCl (Zofran) 4 mg IVP Q6H PRN PRN Reason: Nausea / Vomiting Stop: 03/03/18 19:11 Potassium Chloride (Klor-Con) 40 meq PO DAILY PRN PRN Reason: k level less than 3.5 Stop: 03/03/18 19:11 Simvastatin (Zocor) 10 mg PO HS [facility] Stop: 03/03/18 20:59 Last Admin: 01/05/18 21:35 Dose: 10 mg Tamsulosin HCl (Flomax) 0.4 mg PO HS [facility] Stop: 03/03/18 20:59 Last Admin: 01/05/18 21:35 Dose: 0.4 mg Zolpidem Tartrate (Ambien) 10 mg PO HS PRN PRN Reason: Insomnia Stop: 03/03/18 19:11 Last Admin: 01/03/18 22:31 Dose: 10 mg General: Alert, Cooperative, No acute distress HEENT: Atraumatic, PERRLA, EOMI Neck: Supple, no JVD, no Thyromegaly Cardiovascular: Regular rate, Normal S1, Normal S2 Lungs: Other (has bl rales and congestion) Abdomen: Bowel sounds, Soft, no Distended Extremities: no Clubbing, no Cyanosis Neurological: Normal speech, Normal tone Psych/Mental Status: Mood NL Assessment/Plan - Problem List Patient Problems: All Active Problems SEVERE DYSPNEA WITH UMAÑA CATH PAIN (Acute) - Assessment Assessment: arf sepsis bph malfunction of Umaña - Plan Plan: renal function improving Nutritional Asmnt/Malnutr-PDOC - Dietary Evaluation Malnutrition Findings (Please click <Entered> for more info): Nutritional Asmnt/Malnutrition Start: 01/04/18 16: 19 Text: Status: Complete Freq: Document 01/04/18 16:19 LCHENG (Rec: 01/04/18 16:37 [facility] [id number]) Nutritional Asmnt/Malnutrition Patient General Information Nutritional Screening High Risk Diagnosis sepsis, pneumonitis Pertinent Medical Hx/Surgical Hx constipation, COPD, HTN, dyslipidemia, BPH Subjective Information Pt seen sleeping at time of visit. Per RN, pt ate well on pureed diet, good appetitie. Per EMR, PO intake 75% of meals. Per MD note, pt had no difficulty of chewing or swallowing noted. Current Diet Order/ Nutrition Support pureed cardiac Pertinent Medications D5-0.9%ns, piperacillin, vancomycin Pertinent Labs 01/04 Na 133, K 3.5, Cl 99, BUN 43 (improved), Cr 2.0 ( improved), glucose 210 ( increased), Ca 7.7 01/03 glucose 165, POC 179 01/02 glucose 128, A1c 6.5 Nutritional Hx/Data Height 1.75 m Height (Calculated Centimeters) 175.3 Current Weight (lbs) 68.946 kg Weight (Calculated Kilograms) 68.9 Weight (Calculated Grams) 85229.0 [place] Body Weight 160 Body Mass Index (BMI) 22.4 Weight Status Approriate GI Symptoms GI Symptoms None Last BM 01/04 Difficult in: None Skin Integrity/Comment: skin tear to left hand, excoriation to perianal area, reddeded to sacrum Current %PO Good (75-100%) Estimated Nutritional Goals BEE in Kcals: Using Current wt Calories/Kcals/Kg 25-30 Kcals Calculated 0178-5905 Protein: Using Current wt Protein g/k-1.2 Protein Calculated 68-82 Fluid: ml 1700-2040ml (1ml/kcal) Nutritional Problem 1. Problem Problem altered nutrition related lab values Etiology renal dysfunction and hyperglycemia Signs/Symptoms: BUN 43, Cr 2.0, glucose 128- 210 , a1c 6.5 Intervention/Recommendation Comments 1. Continue with current diet as ordered. If blood glucose continue high, consider adding CCHO-60gm diet for better glycemic control. 2. Monitor PO intake, wt, labs and skin integrity 3. F/U as high risk in 2-3 days, 01/06-01/07 Expected Outcomes/Goals Expected Outcomes/Goals 1. PO intake to meet at least 75% of nutritional needs. 2. Wt stability, skin to remain intact, labs to approach WNL.
--- NOTE | 2018-01-06 19:13 | Infectious Disease Prog Note ---
Infectious Disease Subjective - Review of Systems Service Date: 01/06/18 Subjective: There is no new change, no fever. Infectious Disease Objective - Results Result Diagrams: 01/06/18 04:39 01/06/18 04:39 Recent Labs: Laboratory Last Values WBC 10.8 Th/cmm (4.8-10.8) 01/06/18 04:39 RBC 3.01 Mil/cmm (3.80-5.80) L 01/06/18 04:39 Hgb 9.1 gm/dL (12-16) L 01/06/18 04:39 Hct 27.2 % (41.0-60) L 01/06/18 04:39 MCV 90.3 fl (80-99) 01/06/18 04:39 MCH 30.2 pg (27.0-31.0) 01/06/18 04:39 MCHC Differential 33.5 pg (28.0-36.0) 01/06/18 04:39 RDW 14.2 % (11.5-20.0) 01/06/18 04:39 Plt Count 228 Th/cmm (150-400) 01/06/18 04:39 MPV 7.3 fl 01/06/18 04:39 Neutrophils % 57.8 % (40.0-80.0) 01/06/18 04:39 Band Neutrophils % 3 % (0-10) 01/03/18 05:03 Lymphocytes % 20.1 % (20.0-50.0) 01/06/18 04:39 Monocytes % 8.0 % (2.0-10.0) 01/06/18 04:39 Eosinophils % 12.5 % (0.0-5.0) H 01/06/18 04:39 Basophils % 1.6 % (0.0-2.0) 01/06/18 04:39 Neutrophils (Manual) 90 % (40-80) H 01/03/18 05:03 Lymphocytes 6 % (20-50) L 01/03/18 05:03 Monocytes 1 % (2-10) L 01/03/18 05:03 Eosinophils 0 % (0-5) 01/02/18 15:45 Basophils 0 % (0-3) 01/02/18 15:45 Platelet Estimate ADEQUATE (NORMAL) 01/03/18 05:03 PT 11.1 SECONDS (9.5-11.5) 01/02/18 16:15 INR 1.07 (0.5-1.4) 01/02/18 16:15 PTT (Actin FS) 28.2 SECONDS (26.0-38.0) 01/02/18 16:15 D-Dimer > 5000 ng/mL (100-400) H 01/02/18 15:45 Specimen Source Arterial 01/02/18 16:05 Sample Site RB 01/02/18 16:05 pH 7.49 (7.35-7.45) H 01/02/18 16:05 pCO2 32.0 mmHg (35.0-45.0) L 01/02/18 16:05 pO2 262.0 mmHg (80.0-100.0) H 01/02/18 16:05 HCO3 26.2 mEq/L (20.0-26.0) H 01/02/18 16:05 Base Excess 1.6 mEq/L (-3.0-3.0) 01/02/18 16:05 O2 Saturation 100.0 % (92.0-100.0) 01/02/18 16:05 Norm Test NA 01/02/18 16:05 Vent Rate NA 01/02/18 16:05 Inspired O2 100 01/02/18 16:05 Tidal Volume NA 01/02/18 16:05 PEEP NA 01/02/18 16:05 Pressure (ins/psv/peep) NA 01/02/18 16:05 Critical Value E.LUZ 01/02/18 16:05 Sodium 136 mEq/L (136-145) 01/06/18 04:39 Potassium 3.6 mEq/L (3.5-5.1) 01/06/18 04:39 Chloride 104 mEq/L (98-107) 01/06/18 04:39 Carbon Dioxide 27.8 mEq/L (21.0-31.0) 01/06/18 04:39 Anion Gap 7.8 (7.0-16.0) 01/06/18 04:39 BUN 14 mg/dL (7-25) 01/06/18 04:39 Creatinine 0.8 mg/dL (0.7-1.3) 01/06/18 04:39 Est GFR ( Amer) TNP 01/06/18 04:39 Est GFR (Non-Af Amer) TNP 01/06/18 04:39 BUN/Creatinine Ratio 17.5 01/06/18 04:39 Glucose 125 mg/dL (70-105) H 01/06/18 04:39 POC Glucose 179 MG/DL (70 - 105) H 01/03/18 00:32 Hemoglobin A1c % 6.5 % (4.0-6.0) H 01/02/18 15:45 Whole Bld Lactic Acid 1.38 mmol/L (0.60-1.99) 01/03/18 05:03 Calcium 7.6 mg/dL (8.6-10.3) L 01/06/18 04:39 Total Bilirubin 0.6 mg/dL (0.3-1.0) 01/02/18 15:45 AST 16 U/L (13-39) 01/02/18 15:45 ALT 11 U/L (7-52) 01/02/18 15:45 Alkaline Phosphatase 70 U/L (34-104) 01/02/18 15:45 Creatine Kinase 41 U/L (30-223) 01/02/18 15:45 Troponin I 0.01 ng/mL (0.01-0.05) 01/02/18 15:45 B-Natriuretic Peptide 55.9 pg/mL (5.0-100.0) 01/02/18 15:45 Total Protein 6.2 gm/dL (6.0-8.3) 01/02/18 15:45 Albumin 2.8 gm/dL (4.2-5.5) L 01/02/18 15:45 Globulin 3.4 gm/dL 01/02/18 15:45 Albumin/Globulin Ratio 0.8 (1.0-1.8) L 01/02/18 15:45 Triglycerides 96 mg/dL (<150) 01/02/18 15:45 Cholesterol 113 mg/dL (<200) 01/02/18 15:45 LDL Cholesterol Direct 65 mg/dL (75-193) L 01/02/18 15:45 HDL Cholesterol 36 mg/dL (23-92) 01/02/18 15:45 Random Vancomycin 5.5 ug/mL (5.0-40.0) 01/04/18 04:37 - Physical Exam Vitals and I&O: Vital Signs Temp 98.3 F 01/06/18 16:00 Pulse 104 01/06/18 18:53 Resp 20 01/06/18 18:53 BP 151/78 01/06/18 18:00 Pulse Ox 94 01/06/18 18:53 Intake & Output 01/06/18 01/06/18 01/07/18 06:59 18:59 06:59 Intake Total 1580.000 350 Output Total 1000 Balance 580.000 350 Weight (lbs) 68.946 kg 68.946 kg Intake: Intake, IV Amount 1100.000 50 D5-0.9%Ns 1,000 ml @ 100 1000.000 mls/hr IV .Q10H [facility] Rx#: [id number] Piperacillin Sodium/ 100 50 Tazobact 2.25 gm In Sodium Chloride 0.9% 50 ml @ 100 mls/hr IV Q6H [facility] Rx#:[id number] Oral 480 300 Output: Urine 1000 Other: Weight Source Bedscale Bedscale Active Medications: Current Medications Acetaminophen (Tylenol) 650 mg PO Q6H PRN PRN Reason: HEADACHE/TEMP ABOVE 100F Stop: 03/03/18 19:11 Albuterol Sulfate (Albuterol 2.5mg/3ml Neb Ud) 2.5 mg HHN Q6HR [facility] Stop: 03/04/18 17:59 Last Admin: 01/06/18 18:51 Dose: 2.5 mg Budesonide (Pulmicort) 0.5 mg HHN BIDRT [facility] Stop: 03/04/18 18:59 Last Admin: 01/06/18 18:51 Dose: 0.5 mg Heparin Sodium (Porcine) (Heparin) 5,000 units SUBQ Q12HR [facility] Stop: 03/03/18 20:59 Last Admin: 01/06/18 09:16 Dose: 5,000 units Potassium Chloride 40 meq/Lidocaine HCl 25 mg/ Sodium Chloride 272.5 mls @ 68 mls/hr IV DAILY PRN PRN Reason: k level less than 3.2 Stop: 03/03/18 19:11 Magnesium Sulfate (Magnesium Sulfate Premix) 2 gm in 50 mls @ 25 mls/hr IV DAILY PRN PRN Reason: Magnesium level less than 1.6 Stop: 03/03/18 19:11 Dextrose/Sodium Chloride (D5-0.9%Ns) 1,000 mls @ 100 mls/hr IV .Q10H [facility] Stop: 03/04/18 16:41 Last Admin: 01/06/18 06:16 Dose: 100 mls/hr Vancomycin HCl 1 gm/ Sodium (Chloride) 250 mls @ 165 mls/hr IV Q24H [facility] Stop: 03/05/18 10:59 Last Admin: 01/06/18 11:46 Dose: 165 mls/hr Norepinephrine Bitartrate 4 mg (/ Sodium Chloride) 254 mls @ 30.48 mls/hr IV TITR PRN; Protocol; 8 MCG/MIN PRN Reason: BP MAINTENANCE (PER PROTOCOL) Stop: 03/03/18 20:15 Last Titration: 01/04/18 20:00 Dose: 0 mcg/min, 0 mls/hr Piperacillin Sod/Tazobactam (Sod 2.25 gm/ Sodium Chloride) 50 mls @ 100 mls/hr IV Q6H [facility] Stop: 03/06/18 11:59 Last Admin: 01/06/18 17:49 Dose: 100 mls/hr Lorazepam (Ativan) 1 mg IVP Q4HR PRN; Protocol PRN Reason: Anxiety Stop: 03/03/18 19:11 Magnesium Oxide (Mag-Oxide) 400 mg PO BID PRN PRN Reason: Mg less than 1.9 Stop: 03/03/18 19:11 Miscellaneous (Vancomycin Iv Per Pharmacy) 1 ea MC PRN PRN PRN Reason: PROTOCOL Stop: 03/03/18 19:10 Morphine Sulfate (Morphine) 1 mg IVP Q4HR PRN PRN Reason: Severe Pain Stop: 03/03/18 19:11 Nifedipine (Procardia Xl) 30 mg PO Q24H [facility] Stop: 03/03/18 19:14 Last Admin: 01/05/18 21:24 Dose: Not Given Ondansetron HCl (Zofran) 4 mg IVP Q6H PRN PRN Reason: Nausea / Vomiting Stop: 03/03/18 19:11 Potassium Chloride (Klor-Con) 40 meq PO DAILY PRN PRN Reason: k level less than 3.5 Stop: 03/03/18 19:11 Simvastatin (Zocor) 10 mg PO HS [facility] Stop: 05/27/18 20:59 Last Admin: 01/05/18 21:35 Dose: 10 mg Tamsulosin HCl (Flomax) 0.4 mg PO HS [facility] Stop: 03/03/18 20:59 Last Admin: 01/05/18 21:35 Dose: 0.4 mg Zolpidem Tartrate (Ambien) 10 mg PO HS PRN PRN Reason: Insomnia Stop: 03/03/18 19:11 Last Admin: 01/03/18 22:31 Dose: 10 mg General: no acute distress, well developed, well nourished HEENT: atraumatic, normocephalic, PERRLA, EOMI Neck: supple, no thyromegaly Cardiovascular: S1S2, regular Lungs: no clear to auscultation bilaterally, no clear to percussion Abdomen: soft, no tender, no distended Extremities: no cyanosis, no clubbing, no edema Neurological: awake, alert, oriented, CN 2-12 intact, focal findings Skin: intact Infectious Disease Assmt/Plan - Problem List Patient Problems: All Active Problems SEVERE DYSPNEA WITH UMAÑA CATH PAIN (Acute) - Assessment Assessment: 1. Septic shock. Severe sepsis. The lactic acidosis and hypotension. Sepsis. Improved. 2. Pneumonia. 3. UTI. Complicated with hydronephrosis. Pyelonephritis. 4. MRSA sepsis. 5. BPH. 6. Pulmonary fibrosis [as per CT scan chest report]. 7. History of hypertension, currently hypotensive receiving Levophed. 8. History of COPD. 9. History of dyslipidemia. 10. Acute renal failure, likely obstructive uropathy. 11. Acute renal failure improved, 2/2 obstructive uropathy/ BPH. - Plan Plan: Will continue vanco IV and change zosyn to cipro. Nutritional Asmnt/Malnutr-PDOC - Dietary Evaluation Malnutrition Findings (Please click <Entered> for more info): Nutritional Asmnt/Malnutrition Start: 01/04/18 16: 19 Text: Status: Complete Freq: Document 01/04/18 16:19 LCCALVING (Rec: 01/04/18 16:37 [id number] Nutritional Asmnt/Malnutrition Patient General Information Nutritional Screening High Risk Diagnosis sepsis, pneumonitis Pertinent Medical Hx/Surgical Hx constipation, COPD, HTN, dyslipidemia, BPH Subjective Information Pt seen sleeping at time of visit. Per RN, pt ate well on pureed diet, good appetitie. Per EMR, PO intake 75% of meals. Per MD note, pt had no difficulty of chewing or swallowing noted. Current Diet Order/ Nutrition Support pureed cardiac Pertinent Medications D5-0.9%ns, piperacillin, vancomycin Pertinent Labs 01/04 Na 133, K 3.5, Cl 99, BUN 43 (improved), Cr 2.0 ( improved), glucose 210 ( increased), Ca 7.7 01/03 glucose 165, POC 179 01/02 glucose 128, A1c 6.5 Nutritional Hx/Data Height 1.75 m Height (Calculated Centimeters) 175.3 Current Weight (lbs) 68.946 kg Weight (Calculated Kilograms) 68.9 Weight (Calculated Grams) 27756.0 [place] Body Weight 160 Body Mass Index (BMI) 22.4 Weight Status Approriate GI Symptoms GI Symptoms None Last BM 01/04 Difficult in: None Skin Integrity/Comment: skin tear to left hand, excoriation to perianal area, reddeded to sacrum Current %PO Good (75-100%) Estimated Nutritional Goals BEE in Kcals: Using Current wt Calories/Kcals/Kg 25-30 Kcals Calculated 7370-7743 Protein: Using Current wt Protein g/k-1.2 Protein Calculated 68-82 Fluid: ml 1700-2040ml (1ml/kcal) Nutritional Problem 1. Problem Problem altered nutrition related lab values Etiology renal dysfunction and hyperglycemia Signs/Symptoms: BUN 43, Cr 2.0, glucose 128- 210 , a1c 6.5 Intervention/Recommendation Comments 1. Continue with current diet as ordered. If blood glucose continue high, consider adding CCHO-60gm diet for better glycemic control. 2. Monitor PO intake, wt, labs and skin integrity 3. F/U as high risk in 2-3 days, 01/06-01/07 Expected Outcomes/Goals Expected Outcomes/Goals 1. PO intake to meet at least 75% of nutritional needs. 2. Wt stability, skin to remain intact, labs to approach WNL.
[2018-01-06] MEDS: NIFEdipine 30 mg ER Tab PO SCH (21:46)
[2018-01-07] MEDS: Albuterol Nebulizer 2.5mg/3mL HHN SCH ×4 (01:16→19:08)
[2018-01-07 04:44] LABS: HEMATOCRIT 26.9 % (41.0-60); HEMOGLOBIN 9.2 gm/dL (12-16); MEAN CELL VOLUME 89.7 fl (80-99); MEAN CORPUSCULAR HEMOGLOBIN 30.6 pg (27.0-31.0); MEAN CORPUSCULAR HGB CONC 34.1 pg (28.0-36.0); MEAN PLATELET VOLUME 7.4 fl; PLATELET COUNT 245 Th/cmm (150-400); RED CELL DISTRIBUTION WIDTH 13.7 % (11.5-20.0)
[2018-01-07 05:07] LABS: ANION GAP 8.4 (7.0-16.0); BUN - UREA NITROGEN 11 mg/dL (7-25); CALCIUM SERUM 7.9 mg/dL (8.6-10.3); CARBON DIOXIDE 26.1 mEq/L (21.0-31.0); CHLORIDE 105 mEq/L (98-107); CREATININE - SERUM 0.7 mg/dL (0.7-1.3); GLUCOSE 131 mg/dL (70-105); POTASSIUM SERUM 3.5 mEq/L (3.5-5.1); SODIUM SERUM 136 mEq/L (136-145)
[2018-01-07 05:17] LABS: MANUAL DIFF REQUIRED? YES; WHITE BLOOD COUNT 13.2 Th/cmm (4.8-10.8)
[2018-01-07 06:37] LABS: BAND NEUTROPHILE 1 % (0-10); EOSINOPHIL 12 % (0-5); LYMPHOCYTE 19 % (20-50); MONOCYTE 7 % (2-10); NEUTROPHILS 61 % (40-80); TOTAL CELLS COUNTED 100
[2018-01-07] MEDS: D5-0.9%NS 1,000 ML IV SCH ×2 (06:43→14:50)
[2018-01-07] MEDS: Budesonide 0.5 Mg/2 mL Ud HHN SCH ×2 (07:39→19:08)
--- NOTE | 2018-01-07 08:29 | Diagnostic Imaging Report ---
Portable chest x-ray HISTORY: Shortness of breath, pneumonia Compared with the prior exam of January 05, 2018, no change in severe diffuse bilateral pulmonary infiltrates. The heart remains enlarged. IMPRESSION: 1. No significant change in the pulmonary status.
[2018-01-07] MEDS ORDERED: Probiotic Screen MC PRN (09:00)
--- NOTE | 2018-01-07 09:11 | General Progress Note ---
Subjective - Review of Systems Service Date: 01/07/18 Subjective: Pt seen and eval. More awake and alert today. Making jokes. No n,v,d or cp. His grandson and grand daughter are at the bedside. Dr. Blount saw pt on 01/03/18 and checked on the shannon. Pt has good urine output. He's on Vanco and Zosyn. Blood cx positive for MRSA. No fevers right now. Off levophed now. No headaches. Has some confusion, but improved from yesterday. No difficulty swallowing. Eating now. No abd pain. No sob at rest. No dysuria right now. No psychosis. Objective - Results Result Diagrams: 01/07/18 04:15 01/07/18 04:15 Recent Labs: Laboratory Last Values WBC 13.2 Th/cmm (4.8-10.8) H 01/07/18 04:15 RBC 3.00 Mil/cmm (3.80-5.80) L 01/07/18 04:15 Hgb 9.2 gm/dL (12-16) L 01/07/18 04:15 Hct 26.9 % (41.0-60) L 01/07/18 04:15 MCV 89.7 fl (80-99) 01/07/18 04:15 MCH 30.6 pg (27.0-31.0) 01/07/18 04:15 MCHC Differential 34.1 pg (28.0-36.0) 01/07/18 04:15 RDW 13.7 % (11.5-20.0) 01/07/18 04:15 Plt Count 245 Th/cmm (150-400) 01/07/18 04:15 MPV 7.4 fl 01/07/18 04:15 Neutrophils % 57.8 % (40.0-80.0) 01/06/18 04:39 Band Neutrophils % 1 % (0-10) 01/07/18 04:15 Lymphocytes % 20.1 % (20.0-50.0) 01/06/18 04:39 Monocytes % 8.0 % (2.0-10.0) 01/06/18 04:39 Eosinophils % 12.5 % (0.0-5.0) H 01/06/18 04:39 Basophils % 1.6 % (0.0-2.0) 01/06/18 04:39 Neutrophils (Manual) 61 % (40-80) 01/07/18 04:15 Lymphocytes 19 % (20-50) L 01/07/18 04:15 Monocytes 7 % (2-10) 01/07/18 04:15 Eosinophils 12 % (0-5) H 01/07/18 04:15 Basophils 0 % (0-3) 01/02/18 15:45 Platelet Estimate ADEQUATE (NORMAL) 01/03/18 05:03 PT 11.1 SECONDS (9.5-11.5) 01/02/18 16:15 INR 1.07 (0.5-1.4) 01/02/18 16:15 PTT (Actin FS) 28.2 SECONDS (26.0-38.0) 01/02/18 16:15 D-Dimer > 5000 ng/mL (100-400) H 01/02/18 15:45 Specimen Source Arterial 01/02/18 16:05 Sample Site RB 01/02/18 16:05 pH 7.49 (7.35-7.45) H 01/02/18 16:05 pCO2 32.0 mmHg (35.0-45.0) L 01/02/18 16:05 pO2 262.0 mmHg (80.0-100.0) H 01/02/18 16:05 HCO3 26.2 mEq/L (20.0-26.0) H 01/02/18 16:05 Base Excess 1.6 mEq/L (-3.0-3.0) 01/02/18 16:05 O2 Saturation 100.0 % (92.0-100.0) 01/02/18 16:05 Norm Test NA 01/02/18 16:05 Vent Rate NA 01/02/18 16:05 Inspired O2 100 01/02/18 16:05 Tidal Volume NA 01/02/18 16:05 PEEP NA 01/02/18 16:05 Pressure (ins/psv/peep) NA 01/02/18 16:05 Critical Value E.LUZ 01/02/18 16:05 Sodium 136 mEq/L (136-145) 01/07/18 04:15 Potassium 3.5 mEq/L (3.5-5.1) 01/07/18 04:15 Chloride 105 mEq/L (98-107) 01/07/18 04:15 Carbon Dioxide 26.1 mEq/L (21.0-31.0) 01/07/18 04:15 Anion Gap 8.4 (7.0-16.0) 01/07/18 04:15 BUN 11 mg/dL (7-25) 01/07/18 04:15 Creatinine 0.7 mg/dL (0.7-1.3) 01/07/18 04:15 Est GFR ( Amer) TNP 01/07/18 04:15 Est GFR (Non-Af Amer) TNP 01/07/18 04:15 BUN/Creatinine Ratio 15.7 01/07/18 04:15 Glucose 131 mg/dL (70-105) H 01/07/18 04:15 POC Glucose 179 MG/DL (70 - 105) H 01/03/18 00:32 Hemoglobin A1c % 6.5 % (4.0-6.0) H 01/02/18 15:45 Whole Bld Lactic Acid 1.38 mmol/L (0.60-1.99) 01/03/18 05:03 Calcium 7.9 mg/dL (8.6-10.3) L 01/07/18 04:15 Total Bilirubin 0.6 mg/dL (0.3-1.0) 01/02/18 15:45 AST 16 U/L (13-39) 01/02/18 15:45 ALT 11 U/L (7-52) 01/02/18 15:45 Alkaline Phosphatase 70 U/L (34-104) 01/02/18 15:45 Creatine Kinase 41 U/L (30-223) 01/02/18 15:45 Troponin I 0.01 ng/mL (0.01-0.05) 01/02/18 15:45 B-Natriuretic Peptide 55.9 pg/mL (5.0-100.0) 01/02/18 15:45 Total Protein 6.2 gm/dL (6.0-8.3) 01/02/18 15:45 Albumin 2.8 gm/dL (4.2-5.5) L 01/02/18 15:45 Globulin 3.4 gm/dL 01/02/18 15:45 Albumin/Globulin Ratio 0.8 (1.0-1.8) L 01/02/18 15:45 Triglycerides 96 mg/dL (<150) 01/02/18 15:45 Cholesterol 113 mg/dL (<200) 01/02/18 15:45 LDL Cholesterol Direct 65 mg/dL (75-193) L 01/02/18 15:45 HDL Cholesterol 36 mg/dL (23-92) 01/02/18 15:45 Random Vancomycin 5.5 ug/mL (5.0-40.0) 01/04/18 04:37 - Physical Exam Vitals and I&O: Vital Signs Temp 98.9 F 01/07/18 04:00 Pulse 98 01/07/18 07:59 Resp 32 01/07/18 07:59 BP 102/49 01/07/18 07:00 Pulse Ox 96 01/07/18 07:59 Intake & Output 01/06/18 01/07/18 01/07/18 18:59 06:59 18:59 Intake Total 3400 1396.667 Output Total 1500 3000 Balance 1900 -1603.333 Weight (lbs) 68.946 kg 6872.469 kg Intake: Intake, IV Amount 1050 896.667 D5-0.9%Ns 1,000 ml @ 100 1000 896.667 mls/hr IV .Q10H [facility] Rx#: [id number] Piperacillin Sodium/ 50 Tazobact 2.25 gm In Sodium Chloride 0.9% 50 ml @ 100 mls/hr IV Q6H [facility] Rx#:[id number] Oral 2350 500 Output: Urine 1500 3000 Other: # Bowel Movements 2 Weight Source Bedscale Bedscale Active Medications: Current Medications Acetaminophen (Tylenol) 650 mg PO Q6H PRN PRN Reason: HEADACHE/TEMP ABOVE 100F Stop: 03/03/18 19:11 Albuterol Sulfate (Albuterol 2.5mg/3ml Neb Ud) 2.5 mg HHN Q6HR [facility] Stop: 03/04/18 17:59 Last Admin: 01/07/18 07:39 Dose: 2.5 mg Budesonide (Pulmicort) 0.5 mg HHN BIDRT [facility] Stop: 03/04/18 18:59 Last Admin: 01/07/18 07:39 Dose: 0.5 mg Ciprofloxacin (Cipro) 250 mg PO BID [facility] Stop: 03/08/18 08:59 Heparin Sodium (Porcine) (Heparin) 5,000 units SUBQ Q12HR [facility] Stop: 03/03/18 20:59 Last Admin: 01/06/18 21:46 Dose: 5,000 units Potassium Chloride 40 meq/Lidocaine HCl 25 mg/ Sodium Chloride 272.5 mls @ 68 mls/hr IV DAILY PRN PRN Reason: k level less than 3.2 Stop: 03/03/18 19:11 Magnesium Sulfate (Magnesium Sulfate Premix) 2 gm in 50 mls @ 25 mls/hr IV DAILY PRN PRN Reason: Magnesium level less than 1.6 Stop: 03/03/18 19:11 Dextrose/Sodium Chloride (D5-0.9%Ns) 1,000 mls @ 100 mls/hr IV .Q10H [facility] Stop: 03/04/18 16:41 Last Admin: 01/07/18 06:43 Dose: 100 mls/hr Norepinephrine Bitartrate 4 mg (/ Sodium Chloride) 254 mls @ 30.48 mls/hr IV TITR PRN; Protocol; 8 MCG/MIN PRN Reason: BP MAINTENANCE (PER PROTOCOL) Stop: 03/03/18 20:15 Last Titration: 01/04/18 20:00 Dose: 0 mcg/min, 0 mls/hr Vancomycin HCl 1.25 gm/ Sodium (Chloride) 250 mls @ 165 mls/hr IV Q24HR@0900 [facility] Stop: 03/08/18 09:59 Lactobacillus Rhamnosus (Culturelle 15b) 1 each PO DAILY [facility] Stop: 03/08/18 08:59 Lorazepam (Ativan) 1 mg IVP Q4HR PRN; Protocol PRN Reason: Anxiety Stop: 03/03/18 19:11 Magnesium Oxide (Mag-Oxide) 400 mg PO BID PRN PRN Reason: Mg less than 1.9 Stop: 03/03/18 19:11 Miscellaneous (Vancomycin Iv Per Pharmacy) 1 ea MC PRN PRN PRN Reason: PROTOCOL Stop: 03/03/18 19:10 Miscellaneous (Probiotic Screen) 1 ea MC PRN PRN PRN Reason: PROTOCOL Stop: 03/08/18 08:59 Morphine Sulfate (Morphine) 1 mg IVP Q4HR PRN PRN Reason: Severe Pain Stop: 03/03/18 19:11 Nifedipine (Procardia Xl) 30 mg PO Q24H [facility] Stop: 03/03/18 19:14 Last Admin: 01/06/18 21:46 Dose: 30 mg Ondansetron HCl (Zofran) 4 mg IVP Q6H PRN PRN Reason: Nausea / Vomiting Stop: 03/03/18 19:11 Potassium Chloride (Klor-Con) 40 meq PO DAILY PRN PRN Reason: k level less than 3.5 Stop: 03/03/18 19:11 Simvastatin (Zocor) 10 mg PO HS [facility] Stop: 03/03/18 20:59 Last Admin: 01/06/18 21:47 Dose: 10 mg Tamsulosin HCl (Flomax) 0.4 mg PO HS [facility] Stop: 03/03/18 20:59 Last Admin: 01/06/18 21:48 Dose: 0.4 mg Zolpidem Tartrate (Ambien) 10 mg PO HS PRN PRN Reason: Insomnia Stop: 03/03/18 19:11 Last Admin: 01/03/18 22:31 Dose: 10 mg General: Alert, Cooperative, No acute distress HEENT: Atraumatic, PERRLA, EOMI Neck: Supple, no JVD, no Thyromegaly Cardiovascular: Regular rate, Normal S1, Normal S2 Lungs: Other (has bl rales and congestion) Abdomen: Bowel sounds, Soft, no Distended Extremities: no Clubbing, no Cyanosis Neurological: Normal speech, Normal tone Psych/Mental Status: Mood NL Assessment/Plan - Problem List Patient Problems: All Active Problems SEVERE DYSPNEA WITH SHANNON CATH PAIN (Acute) - Assessment Assessment: Septic shock due to MRSA bacteremia Acute urinary retention with BPH Asp PNA VMN Anemia of Ch Ill Acute resp fail Hyponatremia - Plan Plan: Dr. Blount saw pt on 01/03/18 and checked on the shannon. Pt has good urine output. He's on Vanco and Zosyn. Blood cx positive for MRSA No fevers right now. Off Levophed since 01/04/18. No headaches. Has some confusion, but improved from yesterday. No difficulty swallowing. Eating now. No abd pain. No sob at rest. No dysuria right now. No psychosis. Pt is being seeing by Nephro and Pulm as well. FU on cbc and chem 7. Met with family member at bedside and answered questions. Today his son is visiting. Pt may transfer to Tele. Nutritional Asmnt/Malnutr-PDOC - Dietary Evaluation Malnutrition Findings (Please click <Entered> for more info): Nutritional Asmnt/Malnutrition Start: 01/04/18 16: 19 Text: Status: Complete Freq: Document 01/04/18 16:19 LCHENG (Rec: 01/04/18 16:37 [email or web address] [id number]) Nutritional Asmnt/Malnutrition Patient General Information Nutritional Screening High Risk Diagnosis sepsis, pneumonitis Pertinent Medical Hx/Surgical Hx constipation, COPD, HTN, dyslipidemia, BPH Subjective Information Pt seen sleeping at time of visit. Per RN, pt ate well on pureed diet, good appetitie. Per EMR, PO intake 75% of meals. Per MD note, pt had no difficulty of chewing or swallowing noted. Current Diet Order/ Nutrition Support pureed cardiac Pertinent Medications D5-0.9%ns, piperacillin, vancomycin Pertinent Labs 01/04 Na 133, K 3.5, Cl 99, BUN 43 (improved), Cr 2.0 ( improved), glucose 210 ( increased), Ca 7.7 01/03 glucose 165, POC 179 01/02 glucose 128, A1c 6.5 Nutritional Hx/Data Height 1.75 m Height (Calculated Centimeters) 175.3 Current Weight (lbs) 68.946 kg Weight (Calculated Kilograms) 68.9 Weight (Calculated Grams) 51570.0 [place] Body Weight 160 Body Mass Index (BMI) 22.4 Weight Status Approriate GI Symptoms GI Symptoms None Last BM 01/04 Difficult in: None Skin Integrity/Comment: skin tear to left hand, excoriation to perianal area, reddeded to sacrum Current %PO Good (75-100%) Estimated Nutritional Goals BEE in Kcals: Using Current wt Calories/Kcals/Kg 25-30 Kcals Calculated 5622-5627 Protein: Using Current wt Protein g/k-1.2 Protein Calculated 68-82 Fluid: ml 1700-2040ml (1ml/kcal) Nutritional Problem 1. Problem Problem altered nutrition related lab values Etiology renal dysfunction and hyperglycemia Signs/Symptoms: BUN 43, Cr 2.0, glucose 128- 210 , a1c 6.5 Intervention/Recommendation Comments 1. Continue with current diet as ordered. If blood glucose continue high, consider adding CCHO-60gm diet for better glycemic control. 2. Monitor PO intake, wt, labs and skin integrity 3. F/U as high risk in 2-3 days, 01/06-01/07 Expected Outcomes/Goals Expected Outcomes/Goals 1. PO intake to meet at least 75% of nutritional needs. 2. Wt stability, skin to remain intact, labs to approach WNL.
[2018-01-07] MEDS: Lactobacillus Rhamnosus GG 15 Billion CFU CAP.SPRINK PO SCH (09:58)
--- NOTE | 2018-01-07 15:14 | Infectious Disease Prog Note ---
Infectious Disease Subjective - Review of Systems Service Date: 01/07/18 Subjective: There is no new change, no fever. Infectious Disease Objective - Results Result Diagrams: 01/07/18 04:15 01/07/18 04:15 Recent Labs: Laboratory Last Values WBC 13.2 Th/cmm (4.8-10.8) H 01/07/18 04:15 RBC 3.00 Mil/cmm (3.80-5.80) L 01/07/18 04:15 Hgb 9.2 gm/dL (12-16) L 01/07/18 04:15 Hct 26.9 % (41.0-60) L 01/07/18 04:15 MCV 89.7 fl (80-99) 01/07/18 04:15 MCH 30.6 pg (27.0-31.0) 01/07/18 04:15 MCHC Differential 34.1 pg (28.0-36.0) 01/07/18 04:15 RDW 13.7 % (11.5-20.0) 01/07/18 04:15 Plt Count 245 Th/cmm (150-400) 01/07/18 04:15 MPV 7.4 fl 01/07/18 04:15 Neutrophils % 57.8 % (40.0-80.0) 01/06/18 04:39 Band Neutrophils % 1 % (0-10) 01/07/18 04:15 Lymphocytes % 20.1 % (20.0-50.0) 01/06/18 04:39 Monocytes % 8.0 % (2.0-10.0) 01/06/18 04:39 Eosinophils % 12.5 % (0.0-5.0) H 01/06/18 04:39 Basophils % 1.6 % (0.0-2.0) 01/06/18 04:39 Neutrophils (Manual) 61 % (40-80) 01/07/18 04:15 Lymphocytes 19 % (20-50) L 01/07/18 04:15 Monocytes 7 % (2-10) 01/07/18 04:15 Eosinophils 12 % (0-5) H 01/07/18 04:15 Basophils 0 % (0-3) 01/02/18 15:45 Platelet Estimate ADEQUATE (NORMAL) 01/03/18 05:03 PT 11.1 SECONDS (9.5-11.5) 01/02/18 16:15 INR 1.07 (0.5-1.4) 01/02/18 16:15 PTT (Actin FS) 28.2 SECONDS (26.0-38.0) 01/02/18 16:15 D-Dimer > 5000 ng/mL (100-400) H 01/02/18 15:45 Specimen Source Arterial 01/02/18 16:05 Sample Site RB 01/02/18 16:05 pH 7.49 (7.35-7.45) H 01/02/18 16:05 pCO2 32.0 mmHg (35.0-45.0) L 01/02/18 16:05 pO2 262.0 mmHg (80.0-100.0) H 01/02/18 16:05 HCO3 26.2 mEq/L (20.0-26.0) H 01/02/18 16:05 Base Excess 1.6 mEq/L (-3.0-3.0) 01/02/18 16:05 O2 Saturation 100.0 % (92.0-100.0) 01/02/18 16:05 Norm Test NA 01/02/18 16:05 Vent Rate NA 01/02/18 16:05 Inspired O2 100 01/02/18 16:05 Tidal Volume NA 01/02/18 16:05 PEEP NA 01/02/18 16:05 Pressure (ins/psv/peep) NA 01/02/18 16:05 Critical Value E.LUZ 01/02/18 16:05 Sodium 136 mEq/L (136-145) 01/07/18 04:15 Potassium 3.5 mEq/L (3.5-5.1) 01/07/18 04:15 Chloride 105 mEq/L (98-107) 01/07/18 04:15 Carbon Dioxide 26.1 mEq/L (21.0-31.0) 01/07/18 04:15 Anion Gap 8.4 (7.0-16.0) 01/07/18 04:15 BUN 11 mg/dL (7-25) 01/07/18 04:15 Creatinine 0.7 mg/dL (0.7-1.3) 01/07/18 04:15 Est GFR ( Amer) TNP 01/07/18 04:15 Est GFR (Non-Af Amer) TNP 01/07/18 04:15 BUN/Creatinine Ratio 15.7 01/07/18 04:15 Glucose 131 mg/dL (70-105) H 01/07/18 04:15 POC Glucose 179 MG/DL (70 - 105) H 01/03/18 00:32 Hemoglobin A1c % 6.5 % (4.0-6.0) H 01/02/18 15:45 Whole Bld Lactic Acid 1.38 mmol/L (0.60-1.99) 01/03/18 05:03 Calcium 7.9 mg/dL (8.6-10.3) L 01/07/18 04:15 Total Bilirubin 0.6 mg/dL (0.3-1.0) 01/02/18 15:45 AST 16 U/L (13-39) 01/02/18 15:45 ALT 11 U/L (7-52) 01/02/18 15:45 Alkaline Phosphatase 70 U/L (34-104) 01/02/18 15:45 Creatine Kinase 41 U/L (30-223) 01/02/18 15:45 Troponin I 0.01 ng/mL (0.01-0.05) 01/02/18 15:45 B-Natriuretic Peptide 55.9 pg/mL (5.0-100.0) 01/02/18 15:45 Total Protein 6.2 gm/dL (6.0-8.3) 01/02/18 15:45 Albumin 2.8 gm/dL (4.2-5.5) L 01/02/18 15:45 Globulin 3.4 gm/dL 01/02/18 15:45 Albumin/Globulin Ratio 0.8 (1.0-1.8) L 01/02/18 15:45 Triglycerides 96 mg/dL (<150) 01/02/18 15:45 Cholesterol 113 mg/dL (<200) 01/02/18 15:45 LDL Cholesterol Direct 65 mg/dL (75-193) L 01/02/18 15:45 HDL Cholesterol 36 mg/dL (23-92) 01/02/18 15:45 Random Vancomycin 5.5 ug/mL (5.0-40.0) 01/04/18 04:37 - Physical Exam Vitals and I&O: Vital Signs Temp 98.8 F 01/07/18 08:00 Pulse 91 01/07/18 12:38 Resp 25 01/07/18 12:38 BP 111/60 01/07/18 11:00 Pulse Ox 96 01/07/18 12:38 Intake & Output 01/06/18 01/07/18 01/07/18 18:59 06:59 18:59 Intake Total 3400 6652.963 5952.667 Output Total 1500 3000 Balance 1900 -5052.682 3622.667 Weight (lbs) 68.946 kg 6872.469 kg Intake: Intake, IV Amount 1050 860.141 8783.667 D5-0.9%Ns 1,000 ml @ 100 1000 896.667 811.667 mls/hr IV .Q10H [facility] Rx#: [id number] Piperacillin Sodium/ 50 Tazobact 2.25 gm In Sodium Chloride 0.9% 50 ml @ 100 mls/hr IV Q6H [facility] Rx#:[id number] Vancomycin HCl 1.25 gm In 250 Sodium Chloride 0.9% 250 ml @ 165 mls/hr IV Q24HR @0900 [facility] Rx#:[id number] Oral 2350 500 Output: Urine 1500 3000 Other: # Bowel Movements 2 Weight Source Bedscale Bedscale Active Medications: Current Medications Acetaminophen (Tylenol) 650 mg PO Q6H PRN PRN Reason: HEADACHE/TEMP ABOVE 100F Stop: 03/03/18 19:11 Albuterol Sulfate (Albuterol 2.5mg/3ml Neb Ud) 2.5 mg HHN Q6HR [facility] Stop: 03/04/18 17:59 Last Admin: 01/07/18 12:37 Dose: 2.5 mg Budesonide (Pulmicort) 0.5 mg HHN BIDRT [facility] Stop: 03/04/18 18:59 Last Admin: 01/07/18 07:39 Dose: 0.5 mg Ciprofloxacin (Cipro) 250 mg PO BID [facility] Stop: 03/08/18 08:59 Last Admin: 01/07/18 09:57 Dose: 250 mg Heparin Sodium (Porcine) (Heparin) 5,000 units SUBQ Q12HR [facility] Stop: 03/03/18 20:59 Last Admin: 01/07/18 09:57 Dose: 5,000 units Potassium Chloride 40 meq/Lidocaine HCl 25 mg/ Sodium Chloride 272.5 mls @ 68 mls/hr IV DAILY PRN PRN Reason: k level less than 3.2 Stop: 03/03/18 19:11 Magnesium Sulfate (Magnesium Sulfate Premix) 2 gm in 50 mls @ 25 mls/hr IV DAILY PRN PRN Reason: Magnesium level less than 1.6 Stop: 03/03/18 19:11 Dextrose/Sodium Chloride (D5-0.9%Ns) 1,000 mls @ 100 mls/hr IV .Q10H [facility] Stop: 03/04/18 16:41 Last Admin: 01/07/18 14:50 Dose: 100 mls/hr Norepinephrine Bitartrate 4 mg (/ Sodium Chloride) 254 mls @ 30.48 mls/hr IV TITR PRN; Protocol; 8 MCG/MIN PRN Reason: BP MAINTENANCE (PER PROTOCOL) Stop: 03/03/18 20:15 Last Titration: 01/04/18 20:00 Dose: 0 mcg/min, 0 mls/hr Vancomycin HCl 1.25 gm/ Sodium (Chloride) 250 mls @ 165 mls/hr IV Q24HR@0900 [facility] Stop: 03/08/18 09:59 Last Infusion: 01/07/18 12:55 Dose: Infused Lactobacillus Rhamnosus (Culturelle 15b) 1 each PO DAILY [facility] Stop: 03/08/18 08:59 Last Admin: 01/07/18 09:58 Dose: 1 each Lorazepam (Ativan) 1 mg IVP Q4HR PRN; Protocol PRN Reason: Anxiety Stop: 03/03/18 19:11 Magnesium Oxide (Mag-Oxide) 400 mg PO BID PRN PRN Reason: Mg less than 1.9 Stop: 03/03/18 19:11 Miscellaneous (Vancomycin Iv Per Pharmacy) 1 ea MC PRN PRN PRN Reason: PROTOCOL Stop: 03/03/18 19:10 Miscellaneous (Probiotic Screen) 1 ea MC PRN PRN PRN Reason: PROTOCOL Stop: 03/08/18 08:59 Morphine Sulfate (Morphine) 1 mg IVP Q4HR PRN PRN Reason: Severe Pain Stop: 03/03/18 19:11 Nifedipine (Procardia Xl) 30 mg PO Q24H [facility] Stop: 03/03/18 19:14 Last Admin: 01/06/18 21:46 Dose: 30 mg Ondansetron HCl (Zofran) 4 mg IVP Q6H PRN PRN Reason: Nausea / Vomiting Stop: 03/03/18 19:11 Potassium Chloride (Klor-Con) 40 meq PO DAILY PRN PRN Reason: k level less than 3.5 Stop: 03/03/18 19:11 Simvastatin (Zocor) 10 mg PO HS [facility] Stop: 03/03/18 20:59 Last Admin: 01/06/18 21:47 Dose: 10 mg Tamsulosin HCl (Flomax) 0.4 mg PO HS [facility] Stop: 03/03/18 20:59 Last Admin: 01/06/18 21:48 Dose: 0.4 mg Zolpidem Tartrate (Ambien) 10 mg PO HS PRN PRN Reason: Insomnia Stop: 03/03/18 19:11 Last Admin: 01/03/18 22:31 Dose: 10 mg General: no acute distress, well developed, well nourished HEENT: atraumatic, normocephalic Neck: supple, no thyromegaly Cardiovascular: S1S2, regular Lungs: clear to auscultation bilaterally, clear to percussion Abdomen: soft, no tender, no distended Extremities: no cyanosis, no clubbing, no edema Neurological: awake, alert, oriented Skin: intact Infectious Disease Assmt/Plan - Problem List Patient Problems: All Active Problems SEVERE DYSPNEA WITH UMAÑA CATH PAIN (Acute) - Assessment Assessment: 1. Sepsis. Improved. 2. Pneumonia. 3. UTI. Complicated with hydronephrosis. Pyelonephritis. 4. MRSA sepsis. 5. BPH. 6. Pulmonary fibrosis [as per CT scan chest report]. 7. History of hypertension, currently hypotensive receiving Levophed. 8. History of COPD. 9. History of dyslipidemia. 10. Acute renal failure, likely obstructive uropathy. 11. Acute renal failure improved, 2/2 obstructive uropathy/ BPH. - Plan Plan: Will continue vanco IV and cipro for two weeks from now. Nutritional Asmnt/Malnutr-PDOC - Dietary Evaluation Malnutrition Findings (Please click <Entered> for more info): Nutritional Asmnt/Malnutrition Start: 03/30/18 16: 19 Text: Status: Complete Freq: Document 01/04/18 16:19 LCHENG (Rec: 01/04/18 16:37 LCCALVING [id number]) Nutritional Asmnt/Malnutrition Patient General Information Nutritional Screening High Risk Diagnosis sepsis, pneumonitis Pertinent Medical Hx/Surgical Hx constipation, COPD, HTN, dyslipidemia, BPH Subjective Information Pt seen sleeping at time of visit. Per RN, pt ate well on pureed diet, good appetitie. Per EMR, PO intake 75% of meals. Per MD note, pt had no difficulty of chewing or swallowing noted. Current Diet Order/ Nutrition Support pureed cardiac Pertinent Medications D5-0.9%ns, piperacillin, vancomycin Pertinent Labs 01/04 Na 133, K 3.5, Cl 99, BUN 43 (improved), Cr 2.0 ( improved), glucose 210 ( increased), Ca 7.7 01/03 glucose 165, POC 179 01/02 glucose 128, A1c 6.5 Nutritional Hx/Data Height 1.75 m Height (Calculated Centimeters) 175.3 Current Weight (lbs) 68.946 kg Weight (Calculated Kilograms) 68.9 Weight (Calculated Grams) 22051.0 [place] Body Weight 160 Body Mass Index (BMI) 22.4 Weight Status Approriate GI Symptoms GI Symptoms None Last BM 01/04 Difficult in: None Skin Integrity/Comment: skin tear to left hand, excoriation to perianal area, reddeded to sacrum Current %PO Good (75-100%) Estimated Nutritional Goals BEE in Kcals: Using Current wt Calories/Kcals/Kg 25-30 Kcals Calculated 1736-6394 Protein: Using Current wt Protein g/k-1.2 Protein Calculated 68-82 Fluid: ml 1700-2040ml (1ml/kcal) Nutritional Problem 1. Problem Problem altered nutrition related lab values Etiology renal dysfunction and hyperglycemia Signs/Symptoms: BUN 43, Cr 2.0, glucose 128- 210 , a1c 6.5 Intervention/Recommendation Comments 1. Continue with current diet as ordered. If blood glucose continue high, consider adding CCHO-60gm diet for better glycemic control. 2. Monitor PO intake, wt, labs and skin integrity 3. F/U as high risk in 2-3 days, 01/06-01/07 Expected Outcomes/Goals Expected Outcomes/Goals 1. PO intake to meet at least 75% of nutritional needs. 2. Wt stability, skin to remain intact, labs to approach WNL.
--- NOTE | 2018-01-07 16:30 | General Progress Note ---
Subjective - Review of Systems Service Date: 01/07/18 Subjective: pt doing well Objective - Results Result Diagrams: 01/07/18 04:15 01/07/18 04:15 Recent Labs: Laboratory Last Values WBC 13.2 Th/cmm (4.8-10.8) H 01/07/18 04:15 RBC 3.00 Mil/cmm (3.80-5.80) L 01/07/18 04:15 Hgb 9.2 gm/dL (12-16) L 01/07/18 04:15 Hct 26.9 % (41.0-60) L 01/07/18 04:15 MCV 89.7 fl (80-99) 01/07/18 04:15 MCH 30.6 pg (27.0-31.0) 01/07/18 04:15 MCHC Differential 34.1 pg (28.0-36.0) 01/07/18 04:15 RDW 13.7 % (11.5-20.0) 01/07/18 04:15 Plt Count 245 Th/cmm (150-400) 01/07/18 04:15 MPV 7.4 fl 01/07/18 04:15 Neutrophils % 57.8 % (40.0-80.0) 01/06/18 04:39 Band Neutrophils % 1 % (0-10) 01/07/18 04:15 Lymphocytes % 20.1 % (20.0-50.0) 01/06/18 04:39 Monocytes % 8.0 % (2.0-10.0) 01/06/18 04:39 Eosinophils % 12.5 % (0.0-5.0) H 01/06/18 04:39 Basophils % 1.6 % (0.0-2.0) 01/06/18 04:39 Neutrophils (Manual) 61 % (40-80) 01/07/18 04:15 Lymphocytes 19 % (20-50) L 01/07/18 04:15 Monocytes 7 % (2-10) 01/07/18 04:15 Eosinophils 12 % (0-5) H 01/07/18 04:15 Basophils 0 % (0-3) 01/02/18 15:45 Platelet Estimate ADEQUATE (NORMAL) 01/03/18 05:03 PT 11.1 SECONDS (9.5-11.5) 01/02/18 16:15 INR 1.07 (0.5-1.4) 01/02/18 16:15 PTT (Actin FS) 28.2 SECONDS (26.0-38.0) 01/02/18 16:15 D-Dimer > 5000 ng/mL (100-400) H 01/02/18 15:45 Specimen Source Arterial 01/02/18 16:05 Sample Site RB 01/02/18 16:05 pH 7.49 (7.35-7.45) H 01/02/18 16:05 pCO2 32.0 mmHg (35.0-45.0) L 01/02/18 16:05 pO2 262.0 mmHg (80.0-100.0) H 01/02/18 16:05 HCO3 26.2 mEq/L (20.0-26.0) H 01/02/18 16:05 Base Excess 1.6 mEq/L (-3.0-3.0) 01/02/18 16:05 O2 Saturation 100.0 % (92.0-100.0) 01/02/18 16:05 Norm Test NA 01/02/18 16:05 Vent Rate NA 01/02/18 16:05 Inspired O2 100 01/02/18 16:05 Tidal Volume NA 01/02/18 16:05 PEEP NA 01/02/18 16:05 Pressure (ins/psv/peep) NA 01/02/18 16:05 Critical Value E.LUZ 01/02/18 16:05 Sodium 136 mEq/L (136-145) 01/07/18 04:15 Potassium 3.5 mEq/L (3.5-5.1) 01/07/18 04:15 Chloride 105 mEq/L (98-107) 01/07/18 04:15 Carbon Dioxide 26.1 mEq/L (21.0-31.0) 01/07/18 04:15 Anion Gap 8.4 (7.0-16.0) 01/07/18 04:15 BUN 11 mg/dL (7-25) 01/07/18 04:15 Creatinine 0.7 mg/dL (0.7-1.3) 01/07/18 04:15 Est GFR ( Amer) TNP 01/07/18 04:15 Est GFR (Non-Af Amer) TNP 01/07/18 04:15 BUN/Creatinine Ratio 15.7 01/07/18 04:15 Glucose 131 mg/dL (70-105) H 01/07/18 04:15 POC Glucose 179 MG/DL (70 - 105) H 01/03/18 00:32 Hemoglobin A1c % 6.5 % (4.0-6.0) H 01/02/18 15:45 Whole Bld Lactic Acid 1.38 mmol/L (0.60-1.99) 01/03/18 05:03 Calcium 7.9 mg/dL (8.6-10.3) L 01/07/18 04:15 Total Bilirubin 0.6 mg/dL (0.3-1.0) 01/02/18 15:45 AST 16 U/L (13-39) 01/02/18 15:45 ALT 11 U/L (7-52) 01/02/18 15:45 Alkaline Phosphatase 70 U/L (34-104) 01/02/18 15:45 Creatine Kinase 41 U/L (30-223) 01/02/18 15:45 Troponin I 0.01 ng/mL (0.01-0.05) 01/02/18 15:45 B-Natriuretic Peptide 55.9 pg/mL (5.0-100.0) 01/02/18 15:45 Total Protein 6.2 gm/dL (6.0-8.3) 01/02/18 15:45 Albumin 2.8 gm/dL (4.2-5.5) L 01/02/18 15:45 Globulin 3.4 gm/dL 01/02/18 15:45 Albumin/Globulin Ratio 0.8 (1.0-1.8) L 01/02/18 15:45 Triglycerides 96 mg/dL (<150) 01/02/18 15:45 Cholesterol 113 mg/dL (<200) 01/02/18 15:45 LDL Cholesterol Direct 65 mg/dL (75-193) L 01/02/18 15:45 HDL Cholesterol 36 mg/dL (23-92) 01/02/18 15:45 Random Vancomycin 5.5 ug/mL (5.0-40.0) 01/04/18 04:37 - Physical Exam Vitals and I&O: Vital Signs Temp 98.6 F 01/07/18 12:00 Pulse 94 01/07/18 15:00 Resp 22 01/07/18 15:00 BP 120/66 01/07/18 15:00 Pulse Ox 93 01/07/18 15:00 Intake & Output 01/06/18 01/07/18 01/07/18 18:59 06:59 18:59 Intake Total 3400 3445.821 9826.667 Output Total 1500 3000 Balance 1900 -2141.279 3498.667 Weight (lbs) 68.946 kg 6872.469 kg Intake: Intake, IV Amount 1050 412.052 1500.667 D5-0.9%Ns 1,000 ml @ 100 1000 896.667 811.667 mls/hr IV .Q10H [facility] Rx#: [id number] Piperacillin Sodium/ 50 Tazobact 2.25 gm In Sodium Chloride 0.9% 50 ml @ 100 mls/hr IV Q6H [facility] Rx#:[id number] Vancomycin HCl 1.25 gm In 250 Sodium Chloride 0.9% 250 ml @ 165 mls/hr IV Q24HR @0900 [facility] Rx#:[id number] Oral 2350 500 Output: Urine 1500 3000 Other: # Bowel Movements 2 Weight Source Bedscale Bedscale Active Medications: Current Medications Acetaminophen (Tylenol) 650 mg PO Q6H PRN PRN Reason: HEADACHE/TEMP ABOVE 100F Stop: 03/03/18 19:11 Albuterol Sulfate (Albuterol 2.5mg/3ml Neb Ud) 2.5 mg HHN Q6HR [facility] Stop: 03/04/18 17:59 Last Admin: 01/07/18 12:37 Dose: 2.5 mg Budesonide (Pulmicort) 0.5 mg HHN BIDRT [facility] Stop: 03/04/18 18:59 Last Admin: 01/07/18 07:39 Dose: 0.5 mg Ciprofloxacin (Cipro) 250 mg PO BID [facility] Stop: 03/08/18 08:59 Last Admin: 01/07/18 09:57 Dose: 250 mg Heparin Sodium (Porcine) (Heparin) 5,000 units SUBQ Q12HR [facility] Stop: 03/03/18 20:59 Last Admin: 01/07/18 09:57 Dose: 5,000 units Potassium Chloride 40 meq/Lidocaine HCl 25 mg/ Sodium Chloride 272.5 mls @ 68 mls/hr IV DAILY PRN PRN Reason: k level less than 3.2 Stop: 03/03/18 19:11 Magnesium Sulfate (Magnesium Sulfate Premix) 2 gm in 50 mls @ 25 mls/hr IV DAILY PRN PRN Reason: Magnesium level less than 1.6 Stop: 03/03/18 19:11 Dextrose/Sodium Chloride (D5-0.9%Ns) 1,000 mls @ 100 mls/hr IV .Q10H [facility] Stop: 03/04/18 16:41 Last Admin: 01/07/18 14:50 Dose: 100 mls/hr Norepinephrine Bitartrate 4 mg (/ Sodium Chloride) 254 mls @ 30.48 mls/hr IV TITR PRN; Protocol; 8 MCG/MIN PRN Reason: BP MAINTENANCE (PER PROTOCOL) Stop: 03/03/18 20:15 Last Titration: 01/04/18 20:00 Dose: 0 mcg/min, 0 mls/hr Vancomycin HCl 1.25 gm/ Sodium (Chloride) 250 mls @ 165 mls/hr IV Q24HR@0900 [facility] Stop: 03/08/18 09:59 Last Infusion: 01/07/18 12:55 Dose: Infused Lactobacillus Rhamnosus (Culturelle 15b) 1 each PO DAILY [facility] Stop: 03/08/18 08:59 Last Admin: 01/07/18 09:58 Dose: 1 each Lorazepam (Ativan) 1 mg IVP Q4HR PRN; Protocol PRN Reason: Anxiety Stop: 03/03/18 19:11 Magnesium Oxide (Mag-Oxide) 400 mg PO BID PRN PRN Reason: Mg less than 1.9 Stop: 03/03/18 19:11 Miscellaneous (Vancomycin Iv Per Pharmacy) 1 ea MC PRN PRN PRN Reason: PROTOCOL Stop: 03/03/18 19:10 Miscellaneous (Probiotic Screen) 1 ea MC PRN PRN PRN Reason: PROTOCOL Stop: 03/08/18 08:59 Morphine Sulfate (Morphine) 1 mg IVP Q4HR PRN PRN Reason: Severe Pain Stop: 03/03/18 19:11 Nifedipine (Procardia Xl) 30 mg PO Q24H [facility] Stop: 03/03/18 19:14 Last Admin: 01/06/18 21:46 Dose: 30 mg Ondansetron HCl (Zofran) 4 mg IVP Q6H PRN PRN Reason: Nausea / Vomiting Stop: 03/03/18 19:11 Potassium Chloride (Klor-Con) 40 meq PO DAILY PRN PRN Reason: k level less than 3.5 Stop: 03/03/18 19:11 Simvastatin (Zocor) 10 mg PO HS [facility] Stop: 03/03/18 20:59 Last Admin: 01/06/18 21:47 Dose: 10 mg Tamsulosin HCl (Flomax) 0.4 mg PO HS [facility] Stop: 03/03/18 20:59 Last Admin: 01/06/18 21:48 Dose: 0.4 mg Zolpidem Tartrate (Ambien) 10 mg PO HS PRN PRN Reason: Insomnia Stop: 03/03/18 19:11 Last Admin: 01/03/18 22:31 Dose: 10 mg General: Alert, Cooperative, No acute distress HEENT: Atraumatic, PERRLA, EOMI Neck: Supple, no JVD, no Thyromegaly Cardiovascular: Regular rate, Normal S1, Normal S2 Lungs: Other (has bl rales and congestion) Abdomen: Bowel sounds, Soft, no Distended Extremities: no Clubbing, no Cyanosis Neurological: Normal speech, Normal tone Psych/Mental Status: Mood NL Assessment/Plan - Problem List Patient Problems: All Active Problems SEVERE DYSPNEA WITH UMAÑA CATH PAIN (Acute) - Assessment Assessment: arf sepsis bph malfunction of Umaña - Plan Plan: renal function improving Nutritional Asmnt/Malnutr-PDOC - Dietary Evaluation Malnutrition Findings (Please click <Entered> for more info): Nutritional Asmnt/Malnutrition Start: 01/04/18 16: 19 Text: Status: Complete Freq: Document 01/04/18 16:19 CALVIN (Rec: 01/04/18 16:37 [facility] [id number]) Nutritional Asmnt/Malnutrition Patient General Information Nutritional Screening High Risk Diagnosis sepsis, pneumonitis Pertinent Medical Hx/Surgical Hx constipation, COPD, HTN, dyslipidemia, BPH Subjective Information Pt seen sleeping at time of visit. Per RN, pt ate well on pureed diet, good appetitie. Per EMR, PO intake 75% of meals. Per MD note, pt had no difficulty of chewing or swallowing noted. Current Diet Order/ Nutrition Support pureed cardiac Pertinent Medications D5-0.9%ns, piperacillin, vancomycin Pertinent Labs 01/04 Na 133, K 3.5, Cl 99, BUN 43 (improved), Cr 2.0 ( improved), glucose 210 ( increased), Ca 7.7 01/03 glucose 165, POC 179 01/02 glucose 128, A1c 6.5 Nutritional Hx/Data Height 1.75 m Height (Calculated Centimeters) 175.3 Current Weight (lbs) 68.946 kg Weight (Calculated Kilograms) 68.9 Weight (Calculated Grams) 86098.0 [place] Body Weight 160 Body Mass Index (BMI) 22.4 Weight Status Approriate GI Symptoms GI Symptoms None Last BM 01/04 Difficult in: None Skin Integrity/Comment: skin tear to left hand, excoriation to perianal area, reddeded to sacrum Current %PO Good (75-100%) Estimated Nutritional Goals BEE in Kcals: Using Current wt Calories/Kcals/Kg 25-30 Kcals Calculated 0987-9256 Protein: Using Current wt Protein g/k-1.2 Protein Calculated 68-82 Fluid: ml 1700-2040ml (1ml/kcal) Nutritional Problem 1. Problem Problem altered nutrition related lab values Etiology renal dysfunction and hyperglycemia Signs/Symptoms: BUN 43, Cr 2.0, glucose 128- 210 , a1c 6.5 Intervention/Recommendation Comments 1. Continue with current diet as ordered. If blood glucose continue high, consider adding CCHO-60gm diet for better glycemic control. 2. Monitor PO intake, wt, labs and skin integrity 3. F/U as high risk in 2-3 days, 01/06-01/07 Expected Outcomes/Goals Expected Outcomes/Goals 1. PO intake to meet at least 75% of nutritional needs. 2. Wt stability, skin to remain intact, labs to approach WNL.
[2018-01-07] MEDS: NIFEdipine 30 mg ER Tab PO SCH (19:02)
[2018-01-07] MEDS: methylPREDNISolone SS 40 mg Vial IVP SCH (21:39)
[2018-01-08] MEDS: Albuterol Nebulizer 2.5mg/3mL HHN SCH ×5 (00:22→19:01)
[2018-01-08] MEDS: Budesonide 0.5 Mg/2 mL Ud HHN SCH ×2 (08:41→19:22)
[2018-01-08] MEDS: methylPREDNISolone SS 40 mg Vial IVP SCH ×2 (08:46→15:46)
[2018-01-08] MEDS: Lactobacillus Rhamnosus GG 15 Billion CFU CAP.SPRINK PO SCH (08:47)
--- NOTE | 2018-01-08 09:23 | General Progress Note ---
Subjective - Review of Systems Service Date: 01/08/18 Subjective: Pt seen and eval. More awake and alert today. Making jokes. No n,v,d or cp. His grandson and grand daughter are at the bedside. Dr. Blount saw pt on 01/03/18 and checked on the shannon. Pt has good urine output. He's on Vanco and Zosyn. Blood cx positive for MRSA. No fevers right now. Off levophed now. No headaches. Has some confusion, but improved from yesterday. No difficulty swallowing. Eating now. No abd pain. No sob at rest. No dysuria right now. No psychosis. Pt is in ICU, but Tele status. Now on IV Vanco and PO Cipro. Objective - Results Result Diagrams: 01/07/18 04:15 01/07/18 04:15 Recent Labs: Laboratory Last Values WBC 13.2 Th/cmm (4.8-10.8) H 01/07/18 04:15 RBC 3.00 Mil/cmm (3.80-5.80) L 01/07/18 04:15 Hgb 9.2 gm/dL (12-16) L 01/07/18 04:15 Hct 26.9 % (41.0-60) L 01/07/18 04:15 MCV 89.7 fl (80-99) 01/07/18 04:15 MCH 30.6 pg (27.0-31.0) 01/07/18 04:15 MCHC Differential 34.1 pg (28.0-36.0) 01/07/18 04:15 RDW 13.7 % (11.5-20.0) 01/07/18 04:15 Plt Count 245 Th/cmm (150-400) 01/07/18 04:15 MPV 7.4 fl 01/07/18 04:15 Neutrophils % 57.8 % (40.0-80.0) 01/06/18 04:39 Band Neutrophils % 1 % (0-10) 01/07/18 04:15 Lymphocytes % 20.1 % (20.0-50.0) 01/06/18 04:39 Monocytes % 8.0 % (2.0-10.0) 01/06/18 04:39 Eosinophils % 12.5 % (0.0-5.0) H 01/06/18 04:39 Basophils % 1.6 % (0.0-2.0) 01/06/18 04:39 Neutrophils (Manual) 61 % (40-80) 01/07/18 04:15 Lymphocytes 19 % (20-50) L 01/07/18 04:15 Monocytes 7 % (2-10) 01/07/18 04:15 Eosinophils 12 % (0-5) H 01/07/18 04:15 Basophils 0 % (0-3) 01/02/18 15:45 Platelet Estimate ADEQUATE (NORMAL) 01/03/18 05:03 PT 11.1 SECONDS (9.5-11.5) 01/02/18 16:15 INR 1.07 (0.5-1.4) 01/02/18 16:15 PTT (Actin FS) 28.2 SECONDS (26.0-38.0) 01/02/18 16:15 D-Dimer > 5000 ng/mL (100-400) H 01/02/18 15:45 Specimen Source Arterial 01/02/18 16:05 Sample Site RB 01/02/18 16:05 pH 7.49 (7.35-7.45) H 01/02/18 16:05 pCO2 32.0 mmHg (35.0-45.0) L 01/02/18 16:05 pO2 262.0 mmHg (80.0-100.0) H 01/02/18 16:05 HCO3 26.2 mEq/L (20.0-26.0) H 01/02/18 16:05 Base Excess 1.6 mEq/L (-3.0-3.0) 01/02/18 16:05 O2 Saturation 100.0 % (92.0-100.0) 01/02/18 16:05 Norm Test NA 01/02/18 16:05 Vent Rate NA 01/02/18 16:05 Inspired O2 100 01/02/18 16:05 Tidal Volume NA 01/02/18 16:05 PEEP NA 01/02/18 16:05 Pressure (ins/psv/peep) NA 01/02/18 16:05 Critical Value E.LUZ 01/02/18 16:05 Sodium 136 mEq/L (136-145) 01/07/18 04:15 Potassium 3.5 mEq/L (3.5-5.1) 01/07/18 04:15 Chloride 105 mEq/L (98-107) 01/07/18 04:15 Carbon Dioxide 26.1 mEq/L (21.0-31.0) 01/07/18 04:15 Anion Gap 8.4 (7.0-16.0) 01/07/18 04:15 BUN 11 mg/dL (7-25) 01/07/18 04:15 Creatinine 0.7 mg/dL (0.7-1.3) 01/07/18 04:15 Est GFR ( Amer) TNP 01/07/18 04:15 Est GFR (Non-Af Amer) TNP 01/07/18 04:15 BUN/Creatinine Ratio 15.7 01/07/18 04:15 Glucose 131 mg/dL (70-105) H 01/07/18 04:15 POC Glucose 179 MG/DL (70 - 105) H 01/03/18 00:32 Hemoglobin A1c % 6.5 % (4.0-6.0) H 01/02/18 15:45 Whole Bld Lactic Acid 1.38 mmol/L (0.60-1.99) 01/03/18 05:03 Calcium 7.9 mg/dL (8.6-10.3) L 01/07/18 04:15 Total Bilirubin 0.6 mg/dL (0.3-1.0) 01/02/18 15:45 AST 16 U/L (13-39) 01/02/18 15:45 ALT 11 U/L (7-52) 01/02/18 15:45 Alkaline Phosphatase 70 U/L (34-104) 01/02/18 15:45 Creatine Kinase 41 U/L (30-223) 01/02/18 15:45 Troponin I 0.01 ng/mL (0.01-0.05) 01/02/18 15:45 B-Natriuretic Peptide 55.9 pg/mL (5.0-100.0) 01/02/18 15:45 Total Protein 6.2 gm/dL (6.0-8.3) 01/02/18 15:45 Albumin 2.8 gm/dL (4.2-5.5) L 01/02/18 15:45 Globulin 3.4 gm/dL 01/02/18 15:45 Albumin/Globulin Ratio 0.8 (1.0-1.8) L 01/02/18 15:45 Triglycerides 96 mg/dL (<150) 01/02/18 15:45 Cholesterol 113 mg/dL (<200) 01/02/18 15:45 LDL Cholesterol Direct 65 mg/dL (75-193) L 01/02/18 15:45 HDL Cholesterol 36 mg/dL (23-92) 01/02/18 15:45 Random Vancomycin 5.5 ug/mL (5.0-40.0) 01/04/18 04:37 - Physical Exam Vitals and I&O: Vital Signs Temp 99.0 F 01/08/18 04:00 Pulse 81 01/08/18 06:00 Resp 28 01/08/18 06:00 BP 100/51 01/08/18 06:00 Pulse Ox 98 01/08/18 06:00 Intake & Output 01/07/18 01/08/18 01/08/18 18:59 06:59 18:59 Intake Total 1811.667 660 Output Total 19990 Balance -188.333 -1890 Weight (lbs) 68.946 kg 68.039 kg Intake: Intake, IV Amount 1061.667 D5-0.9%Ns 1,000 ml @ 100 811.667 mls/hr IV .Q10H [facility] Rx#: [id number] Vancomycin HCl 1.25 gm In 250 Sodium Chloride 0.9% 250 ml @ 165 mls/hr IV Q24HR @0900 [facility] Rx#:[id number] Oral 750 660 Output: Urine 19990 Other: Weight Source [facility] Active Medications: Current Medications Acetaminophen (Tylenol) 650 mg PO Q6H PRN PRN Reason: HEADACHE/TEMP ABOVE 100F Stop: 03/03/18 19:11 Albuterol Sulfate (Albuterol 2.5mg/3ml Neb Ud) 2.5 mg HHN Q6HR [facility] Stop: 03/04/18 17:59 Last Admin: 01/08/18 08:41 Dose: 2.5 mg Budesonide (Pulmicort) 0.5 mg HHN BIDRT [facility] Stop: 03/04/18 18:59 Last Admin: 01/08/18 08:41 Dose: 0.5 mg Ciprofloxacin (Cipro) 250 mg PO BID [facility] Stop: 03/08/18 08:59 Last Admin: 01/08/18 08:46 Dose: 250 mg Heparin Sodium (Porcine) (Heparin) 5,000 units SUBQ Q12HR [facility] Stop: 03/03/18 20:59 Last Admin: 01/08/18 08:47 Dose: 5,000 units Potassium Chloride 40 meq/Lidocaine HCl 25 mg/ Sodium Chloride 272.5 mls @ 68 mls/hr IV DAILY PRN PRN Reason: k level less than 3.2 Stop: 03/03/18 19:11 Magnesium Sulfate (Magnesium Sulfate Premix) 2 gm in 50 mls @ 25 mls/hr IV DAILY PRN PRN Reason: Magnesium level less than 1.6 Stop: 03/03/18 19:11 Norepinephrine Bitartrate 4 mg (/ Sodium Chloride) 254 mls @ 30.48 mls/hr IV TITR PRN; Protocol; 8 MCG/MIN PRN Reason: BP MAINTENANCE (PER PROTOCOL) Stop: 03/03/18 20:15 Last Titration: 01/04/18 20:00 Dose: 0 mcg/min, 0 mls/hr Vancomycin HCl 1.25 gm/ Sodium (Chloride) 250 mls @ 165 mls/hr IV Q24HR@0900 [facility] Stop: 03/08/18 09:59 Last Infusion: 01/07/18 12:55 Dose: Infused Lactobacillus Rhamnosus (Culturelle 15b) 1 each PO DAILY [facility] Stop: 03/08/18 08:59 Last Admin: 01/08/18 08:47 Dose: 1 each Lorazepam (Ativan) 1 mg IVP Q4HR PRN; Protocol PRN Reason: Anxiety Stop: 03/03/18 19:11 Magnesium Oxide (Mag-Oxide) 400 mg PO BID PRN PRN Reason: Mg less than 1.9 Stop: 03/03/18 19:11 Methylprednisolone Sodium Succinate (Solu-Medrol) 20 mg IVP Q12H [facility] Stop: 03/08/18 20:59 Last Admin: 01/08/18 08:46 Dose: 20 mg Miscellaneous (Vancomycin Iv Per Pharmacy) 1 ea PRN PRN PRN Reason: PROTOCOL Stop: 03/03/18 19:10 Miscellaneous (Probiotic Screen) 1 ea PRN PRN PRN Reason: PROTOCOL Stop: 03/08/18 08:59 Morphine Sulfate (Morphine) 1 mg IVP Q4HR PRN PRN Reason: Severe Pain Stop: 03/03/18 19:11 Nifedipine (Procardia Xl) 30 mg PO Q24H [facility] Stop: 03/03/18 19:14 Last Admin: 01/07/18 19:02 Dose: 30 mg Ondansetron HCl (Zofran) 4 mg IVP Q6H PRN PRN Reason: Nausea / Vomiting Stop: 03/03/18 19:11 Potassium Chloride (Klor-Con) 40 meq PO DAILY PRN PRN Reason: k level less than 3.5 Stop: 03/03/18 19:11 Simvastatin (Zocor) 10 mg PO HS [facility] Stop: 03/03/18 20:59 Last Admin: 01/07/18 21:39 Dose: 10 mg Tamsulosin HCl (Flomax) 0.4 mg PO HS [facility] Stop: 03/03/18 20:59 Last Admin: 01/07/18 21:39 Dose: 0.4 mg Zolpidem Tartrate (Ambien) 10 mg PO HS PRN PRN Reason: Insomnia Stop: 03/03/18 19:11 Last Admin: 01/03/18 22:31 Dose: 10 mg General: Alert, Cooperative, No acute distress HEENT: Atraumatic, PERRLA, EOMI Neck: Supple, no JVD, no Thyromegaly Cardiovascular: Regular rate, Normal S1, Normal S2 Lungs: Other (has bl rales and congestion) Abdomen: Bowel sounds, Soft, no Distended Extremities: no Clubbing, no Cyanosis Neurological: Normal speech, Normal tone Psych/Mental Status: Mood NL Assessment/Plan - Problem List Patient Problems: All Active Problems SEVERE DYSPNEA WITH SHANNON CATH PAIN (Acute) - Assessment Assessment: Septic shock due to MRSA bacteremia Acute urinary retention with BPH Asp PNA VMN Anemia of Ch Ill Acute resp fail Hyponatremia - Plan Plan: Dr. Blount saw pt on 01/03/18 and checked on the shannon. Pt has good urine output. He's now on IV Vanco and PO Cipro per ID. Blood cx positive for MRSA No fevers right now. Off Levophed since 01/04/18. No headaches. Has some confusion, but improved from yesterday. No difficulty swallowing. Eating now. No abd pain. No sob at rest. No dysuria right now. No psychosis. Pt is being seeing by Nephro and Pulm as well. FU on cbc and chem 7. Met with family member at bedside and answered questions. Today his son is visiting. Pt is in ICU, but Tele status. Daughter wants pt to go back to a different SNF. Nutritional Asmnt/Malnutr-PDOC - Dietary Evaluation Malnutrition Findings (Please click <Entered> for more info): Nutritional Asmnt/Malnutrition Start: 01/04/18 16: 19 Text: Status: Complete Freq: Document 01/04/18 16:19 [facility] (Rec: 01/04/18 16:37 [facility] [id number]) Nutritional Asmnt/Malnutrition Patient General Information Nutritional Screening High Risk Diagnosis sepsis, pneumonitis Pertinent Medical Hx/Surgical Hx constipation, COPD, HTN, dyslipidemia, BPH Subjective Information Pt seen sleeping at time of visit. Per RN, pt ate well on pureed diet, good appetitie. Per EMR, PO intake 75% of meals. Per MD note, pt had no difficulty of chewing or swallowing noted. Current Diet Order/ Nutrition Support pureed cardiac Pertinent Medications D5-0.9%ns, piperacillin, vancomycin Pertinent Labs 01/04 Na 133, K 3.5, Cl 99, BUN 43 (improved), Cr 2.0 ( improved), glucose 210 ( increased), Ca 7.7 01/03 glucose 165, POC 179 01/02 glucose 128, A1c 6.5 Nutritional Hx/Data Height 1.75 m Height (Calculated Centimeters) 175.3 Current Weight (lbs) 68.946 kg Weight (Calculated Kilograms) 68.9 Weight (Calculated Grams) 94596.0 [place] Body Weight 160 Body Mass Index (BMI) 22.4 Weight Status Approriate GI Symptoms GI Symptoms None Last BM 01/04 Difficult in: None Skin Integrity/Comment: skin tear to left hand, excoriation to perianal area, reddeded to sacrum Current %PO Good (75-100%) Estimated Nutritional Goals BEE in Kcals: Using Current wt Calories/Kcals/Kg 25-30 Kcals Calculated 3456-1548 Protein: Using Current wt Protein g/k-1.2 Protein Calculated 68-82 Fluid: ml 1700-2040ml (1ml/kcal) Nutritional Problem 1. Problem Problem altered nutrition related lab values Etiology renal dysfunction and hyperglycemia Signs/Symptoms: BUN 43, Cr 2.0, glucose 128- 210 , a1c 6.5 Intervention/Recommendation Comments 1. Continue with current diet as ordered. If blood glucose continue high, consider adding CCHO-60gm diet for better glycemic control. 2. Monitor PO intake, wt, labs and skin integrity 3. F/U as high risk in 2-3 days, 01/06-01/07 Expected Outcomes/Goals Expected Outcomes/Goals 1. PO intake to meet at least 75% of nutritional needs. 2. Wt stability, skin to remain intact, labs to approach WNL.
--- NOTE | 2018-01-08 13:26 | Infectious Disease Prog Note ---
Infectious Disease Subjective - Review of Systems Service Date: 01/08/18 Subjective: There is no new change, no fever. Infectious Disease Objective - Results Result Diagrams: 01/07/18 04:15 01/07/18 04:15 Recent Labs: Laboratory Last Values WBC 13.2 Th/cmm (4.8-10.8) H 01/07/18 04:15 RBC 3.00 Mil/cmm (3.80-5.80) L 01/07/18 04:15 Hgb 9.2 gm/dL (12-16) L 01/07/18 04:15 Hct 26.9 % (41.0-60) L 01/07/18 04:15 MCV 89.7 fl (80-99) 01/07/18 04:15 MCH 30.6 pg (27.0-31.0) 01/07/18 04:15 MCHC Differential 34.1 pg (28.0-36.0) 01/07/18 04:15 RDW 13.7 % (11.5-20.0) 01/07/18 04:15 Plt Count 245 Th/cmm (150-400) 01/07/18 04:15 MPV 7.4 fl 01/07/18 04:15 Neutrophils % 57.8 % (40.0-80.0) 01/06/18 04:39 Band Neutrophils % 1 % (0-10) 01/07/18 04:15 Lymphocytes % 20.1 % (20.0-50.0) 01/06/18 04:39 Monocytes % 8.0 % (2.0-10.0) 01/06/18 04:39 Eosinophils % 12.5 % (0.0-5.0) H 01/06/18 04:39 Basophils % 1.6 % (0.0-2.0) 01/06/18 04:39 Neutrophils (Manual) 61 % (40-80) 01/07/18 04:15 Lymphocytes 19 % (20-50) L 01/07/18 04:15 Monocytes 7 % (2-10) 01/07/18 04:15 Eosinophils 12 % (0-5) H 01/07/18 04:15 Basophils 0 % (0-3) 01/02/18 15:45 Platelet Estimate ADEQUATE (NORMAL) 01/03/18 05:03 PT 11.1 SECONDS (9.5-11.5) 01/02/18 16:15 INR 1.07 (0.5-1.4) 01/02/18 16:15 PTT (Actin FS) 28.2 SECONDS (26.0-38.0) 01/02/18 16:15 D-Dimer > 5000 ng/mL (100-400) H 01/02/18 15:45 Specimen Source Arterial 01/02/18 16:05 Sample Site RB 01/02/18 16:05 pH 7.49 (7.35-7.45) H 01/02/18 16:05 pCO2 32.0 mmHg (35.0-45.0) L 01/02/18 16:05 pO2 262.0 mmHg (80.0-100.0) H 01/02/18 16:05 HCO3 26.2 mEq/L (20.0-26.0) H 01/02/18 16:05 Base Excess 1.6 mEq/L (-3.0-3.0) 01/02/18 16:05 O2 Saturation 100.0 % (92.0-100.0) 01/02/18 16:05 Norm Test NA 01/02/18 16:05 Vent Rate NA 01/02/18 16:05 Inspired O2 100 01/02/18 16:05 Tidal Volume NA 01/02/18 16:05 PEEP NA 01/02/18 16:05 Pressure (ins/psv/peep) NA 01/02/18 16:05 Critical Value E.LUZ 01/02/18 16:05 Sodium 136 mEq/L (136-145) 01/07/18 04:15 Potassium 3.5 mEq/L (3.5-5.1) 01/07/18 04:15 Chloride 105 mEq/L (98-107) 01/07/18 04:15 Carbon Dioxide 26.1 mEq/L (21.0-31.0) 01/07/18 04:15 Anion Gap 8.4 (7.0-16.0) 01/07/18 04:15 BUN 11 mg/dL (7-25) 01/07/18 04:15 Creatinine 0.7 mg/dL (0.7-1.3) 01/07/18 04:15 Est GFR ( Amer) TNP 01/07/18 04:15 Est GFR (Non-Af Amer) TNP 01/07/18 04:15 BUN/Creatinine Ratio 15.7 01/07/18 04:15 Glucose 131 mg/dL (70-105) H 01/07/18 04:15 POC Glucose 179 MG/DL (70 - 105) H 01/03/18 00:32 Hemoglobin A1c % 6.5 % (4.0-6.0) H 01/02/18 15:45 Whole Bld Lactic Acid 1.38 mmol/L (0.60-1.99) 01/03/18 05:03 Calcium 7.9 mg/dL (8.6-10.3) L 01/07/18 04:15 Total Bilirubin 0.6 mg/dL (0.3-1.0) 01/02/18 15:45 AST 16 U/L (13-39) 01/02/18 15:45 ALT 11 U/L (7-52) 01/02/18 15:45 Alkaline Phosphatase 70 U/L (34-104) 01/02/18 15:45 Creatine Kinase 41 U/L (30-223) 01/02/18 15:45 Troponin I 0.01 ng/mL (0.01-0.05) 01/02/18 15:45 B-Natriuretic Peptide 55.9 pg/mL (5.0-100.0) 01/02/18 15:45 Total Protein 6.2 gm/dL (6.0-8.3) 01/02/18 15:45 Albumin 2.8 gm/dL (4.2-5.5) L 01/02/18 15:45 Globulin 3.4 gm/dL 01/02/18 15:45 Albumin/Globulin Ratio 0.8 (1.0-1.8) L 01/02/18 15:45 Triglycerides 96 mg/dL (<150) 01/02/18 15:45 Cholesterol 113 mg/dL (<200) 01/02/18 15:45 LDL Cholesterol Direct 65 mg/dL (75-193) L 01/02/18 15:45 HDL Cholesterol 36 mg/dL (23-92) 01/02/18 15:45 Random Vancomycin 5.5 ug/mL (5.0-40.0) 01/04/18 04:37 - Physical Exam Vitals and I&O: Vital Signs Temp 98.9 F 01/08/18 07:00 Pulse 102 01/08/18 13:16 Resp 16 01/08/18 13:16 BP 104/59 01/08/18 08:00 Pulse Ox 93 01/08/18 13:16 Intake & Output 01/07/18 01/08/18 01/08/18 18:59 06:59 18:59 Intake Total 1811.667 660 Output Total 1999 2550 Balance -188.333 -1890 Weight (lbs) 68.946 kg 68.039 kg Intake: Intake, IV Amount 1061.667 D5-0.9%Ns 1,000 ml @ 100 811.667 mls/hr IV .Q10H [facility] Rx#: [id number] Vancomycin HCl 1.25 gm In 250 Sodium Chloride 0.9% 250 ml @ 165 mls/hr IV Q24HR @0900 [facility] Rx#:[id number] Oral 750 660 Output: Urine 1999 2550 Other: Weight Source Bedscale Bedscale Active Medications: Current Medications Acetaminophen (Tylenol) 650 mg PO Q6H PRN PRN Reason: HEADACHE/TEMP ABOVE 100F Stop: 03/03/18 19:11 Albuterol Sulfate (Albuterol 2.5mg/3ml Neb Ud) 2.5 mg HHN Q6HR [facility] Stop: 03/04/18 17:59 Last Admin: 01/08/18 13:16 Dose: 2.5 mg Budesonide (Pulmicort) 0.5 mg HHN BIDRT [facility] Stop: 03/04/18 18:59 Last Admin: 01/08/18 08:41 Dose: 0.5 mg Ciprofloxacin (Cipro) 250 mg PO BID [facility] Stop: 03/08/18 08:59 Last Admin: 01/08/18 08:46 Dose: 250 mg Heparin Sodium (Porcine) (Heparin) 5,000 units SUBQ Q12HR [facility] Stop: 03/03/18 20:59 Last Admin: 01/08/18 08:47 Dose: 5,000 units Potassium Chloride 40 meq/Lidocaine HCl 25 mg/ Sodium Chloride 272.5 mls @ 68 mls/hr IV DAILY PRN PRN Reason: k level less than 3.2 Stop: 03/03/18 19:11 Magnesium Sulfate (Magnesium Sulfate Premix) 2 gm in 50 mls @ 25 mls/hr IV DAILY PRN PRN Reason: Magnesium level less than 1.6 Stop: 03/03/18 19:11 Norepinephrine Bitartrate 4 mg (/ Sodium Chloride) 254 mls @ 30.48 mls/hr IV TITR PRN; Protocol; 8 MCG/MIN PRN Reason: BP MAINTENANCE (PER PROTOCOL) Stop: 03/03/18 20:15 Last Titration: 01/04/18 20:00 Dose: 0 mcg/min, 0 mls/hr Vancomycin HCl 1.25 gm/ Sodium (Chloride) 250 mls @ 165 mls/hr IV Q24HR@0900 [facility] Stop: 03/08/18 09:59 Last Admin: 01/08/18 09:52 Dose: 165 mls/hr Lactobacillus Rhamnosus (Culturelle 15b) 1 each PO DAILY [facility] Stop: 03/08/18 08:59 Last Admin: 01/08/18 08:47 Dose: 1 each Lorazepam (Ativan) 1 mg IVP Q4HR PRN; Protocol PRN Reason: Anxiety Stop: 03/03/18 19:11 Magnesium Oxide (Mag-Oxide) 400 mg PO BID PRN PRN Reason: Mg less than 1.9 Stop: 03/03/18 19:11 Methylprednisolone Sodium Succinate (Solu-Medrol) 20 mg IVP Q12H [facility] Stop: 03/08/18 20:59 Last Admin: 01/08/18 08:46 Dose: 20 mg Miscellaneous (Vancomycin Iv Per Pharmacy) 1 ea PRN PRN PRN Reason: PROTOCOL Stop: 03/03/18 19:10 Miscellaneous (Probiotic Screen) 1 ea PRN PRN PRN Reason: PROTOCOL Stop: 03/08/18 08:59 Morphine Sulfate (Morphine) 1 mg IVP Q4HR PRN PRN Reason: Severe Pain Stop: 03/03/18 19:11 Nifedipine (Procardia Xl) 30 mg PO Q24H [facility] Stop: 03/03/18 19:14 Last Admin: 01/07/18 19:02 Dose: 30 mg Ondansetron HCl (Zofran) 4 mg IVP Q6H PRN PRN Reason: Nausea / Vomiting Stop: 03/03/18 19:11 Potassium Chloride (Klor-Con) 40 meq PO DAILY PRN PRN Reason: k level less than 3.5 Stop: 03/03/18 19:11 Simvastatin (Zocor) 10 mg PO HS [facility] Stop: 03/03/18 20:59 Last Admin: 01/07/18 21:39 Dose: 10 mg Tamsulosin HCl (Flomax) 0.4 mg PO HS [facility] Stop: 03/03/18 20:59 Last Admin: 01/07/18 21:39 Dose: 0.4 mg Zolpidem Tartrate (Ambien) 10 mg PO HS PRN PRN Reason: Insomnia Stop: 03/03/18 19:11 Last Admin: 01/03/18 22:31 Dose: 10 mg General: no acute distress, well developed, well nourished HEENT: atraumatic, normocephalic, PERRLA, EOMI Neck: supple, no thyromegaly Cardiovascular: S1S2, regular Lungs: clear to auscultation bilaterally, clear to percussion Abdomen: soft, no tender, no distended, no mass, no hepatomegaly Extremities: no cyanosis, no clubbing, no edema Neurological: awake, oriented Skin: intact Infectious Disease Assmt/Plan - Problem List Patient Problems: All Active Problems SEVERE DYSPNEA WITH UMAÑA CATH PAIN (Acute) - Assessment Assessment: 1. Sepsis. Improved. 2. Pneumonia. 3. UTI. Complicated with hydronephrosis. Pyelonephritis. 4. MRSA sepsis. 5. BPH. 6. Pulmonary fibrosis [as per CT scan chest report]. 7. History of hypertension, currently hypotensive receiving Levophed. 8. History of COPD. 9. History of dyslipidemia. 10. Acute renal failure, likely obstructive uropathy. 11. Acute renal failure improved, 2/2 obstructive uropathy/ BPH. - Plan Plan: Will continue vanco IV and cipro . End date: 01/21/2018. Nutritional Asmnt/Malnutr-PDOC - Dietary Evaluation Malnutrition Findings (Please click <Entered> for more info): Nutritional Asmnt/Malnutrition Start: 01/04/18 16: 19 Text: Status: Complete Freq: Document 01/04/18 16:19 [facility] (Rec: 01/04/18 16:37 CALVIN [id number]) Nutritional Asmnt/Malnutrition Patient General Information Nutritional Screening High Risk Diagnosis sepsis, pneumonitis Pertinent Medical Hx/Surgical Hx constipation, COPD, HTN, dyslipidemia, BPH Subjective Information Pt seen sleeping at time of visit. Per RN, pt ate well on pureed diet, good appetitie. Per EMR, PO intake 75% of meals. Per MD note, pt had no difficulty of chewing or swallowing noted. Current Diet Order/ Nutrition Support pureed cardiac Pertinent Medications D5-0.9%ns, piperacillin, vancomycin Pertinent Labs 01/04 Na 133, K 3.5, Cl 99, BUN 43 (improved), Cr 2.0 ( improved), glucose 210 ( increased), Ca 7.7 01/03 glucose 165, POC 179 01/02 glucose 128, A1c 6.5 Nutritional Hx/Data Height 1.75 m Height (Calculated Centimeters) 175.3 Current Weight (lbs) 68.946 kg Weight (Calculated Kilograms) 68.9 Weight (Calculated Grams) 55125.0 [place] Body Weight 160 Body Mass Index (BMI) 22.4 Weight Status Approriate GI Symptoms GI Symptoms None Last BM 01/04 Difficult in: None Skin Integrity/Comment: skin tear to left hand, excoriation to perianal area, reddeded to sacrum Current %PO Good (75-100%) Estimated Nutritional Goals BEE in Kcals: Using Current wt Calories/Kcals/Kg 25-30 Kcals Calculated 6082-6596 Protein: Using Current wt Protein g/k-1.2 Protein Calculated 68-82 Fluid: ml 1700-2040ml (1ml/kcal) Nutritional Problem 1. Problem Problem altered nutrition related lab values Etiology renal dysfunction and hyperglycemia Signs/Symptoms: BUN 43, Cr 2.0, glucose 128- 210 , a1c 6.5 Intervention/Recommendation Comments 1. Continue with current diet as ordered. If blood glucose continue high, consider adding CCHO-60gm diet for better glycemic control. 2. Monitor PO intake, wt, labs and skin integrity 3. F/U as high risk in 2-3 days, 01/06-01/07 Expected Outcomes/Goals Expected Outcomes/Goals 1. PO intake to meet at least 75% of nutritional needs. 2. Wt stability, skin to remain intact, labs to approach WNL.
--- NOTE | 2018-01-08 16:49 | General Progress Note ---
Subjective - Review of Systems Service Date: 01/08/18 Subjective: pt doing well Objective - Results Result Diagrams: 01/07/18 04:15 01/07/18 04:15 Recent Labs: Laboratory Last Values WBC 13.2 Th/cmm (4.8-10.8) H 01/07/18 04:15 RBC 3.00 Mil/cmm (3.80-5.80) L 01/07/18 04:15 Hgb 9.2 gm/dL (12-16) L 01/07/18 04:15 Hct 26.9 % (41.0-60) L 01/07/18 04:15 MCV 89.7 fl (80-99) 01/07/18 04:15 MCH 30.6 pg (27.0-31.0) 01/07/18 04:15 MCHC Differential 34.1 pg (28.0-36.0) 01/07/18 04:15 RDW 13.7 % (11.5-20.0) 01/07/18 04:15 Plt Count 245 Th/cmm (150-400) 01/07/18 04:15 MPV 7.4 fl 01/07/18 04:15 Neutrophils % 57.8 % (40.0-80.0) 01/06/18 04:39 Band Neutrophils % 1 % (0-10) 01/07/18 04:15 Lymphocytes % 20.1 % (20.0-50.0) 01/06/18 04:39 Monocytes % 8.0 % (2.0-10.0) 01/06/18 04:39 Eosinophils % 12.5 % (0.0-5.0) H 01/06/18 04:39 Basophils % 1.6 % (0.0-2.0) 01/06/18 04:39 Neutrophils (Manual) 61 % (40-80) 01/07/18 04:15 Lymphocytes 19 % (20-50) L 01/07/18 04:15 Monocytes 7 % (2-10) 01/07/18 04:15 Eosinophils 12 % (0-5) H 01/07/18 04:15 Basophils 0 % (0-3) 01/02/18 15:45 Platelet Estimate ADEQUATE (NORMAL) 01/03/18 05:03 PT 11.1 SECONDS (9.5-11.5) 01/02/18 16:15 INR 1.07 (0.5-1.4) 01/02/18 16:15 PTT (Actin FS) 28.2 SECONDS (26.0-38.0) 01/02/18 16:15 D-Dimer > 5000 ng/mL (100-400) H 01/02/18 15:45 Specimen Source Arterial 01/02/18 16:05 Sample Site RB 01/02/18 16:05 pH 7.49 (7.35-7.45) H 01/02/18 16:05 pCO2 32.0 mmHg (35.0-45.0) L 01/02/18 16:05 pO2 262.0 mmHg (80.0-100.0) H 01/02/18 16:05 HCO3 26.2 mEq/L (20.0-26.0) H 01/02/18 16:05 Base Excess 1.6 mEq/L (-3.0-3.0) 01/02/18 16:05 O2 Saturation 100.0 % (92.0-100.0) 01/02/18 16:05 Norm Test NA 01/02/18 16:05 Vent Rate NA 01/02/18 16:05 Inspired O2 100 01/02/18 16:05 Tidal Volume NA 01/02/18 16:05 PEEP NA 01/02/18 16:05 Pressure (ins/psv/peep) NA 01/02/18 16:05 Critical Value E.LUZ 01/02/18 16:05 Sodium 136 mEq/L (136-145) 01/07/18 04:15 Potassium 3.5 mEq/L (3.5-5.1) 01/07/18 04:15 Chloride 105 mEq/L (98-107) 01/07/18 04:15 Carbon Dioxide 26.1 mEq/L (21.0-31.0) 01/07/18 04:15 Anion Gap 8.4 (7.0-16.0) 01/07/18 04:15 BUN 11 mg/dL (7-25) 01/07/18 04:15 Creatinine 0.7 mg/dL (0.7-1.3) 01/07/18 04:15 Est GFR ( Amer) TNP 01/07/18 04:15 Est GFR (Non-Af Amer) TNP 01/07/18 04:15 BUN/Creatinine Ratio 15.7 01/07/18 04:15 Glucose 131 mg/dL (70-105) H 01/07/18 04:15 POC Glucose 179 MG/DL (70 - 105) H 01/03/18 00:32 Hemoglobin A1c % 6.5 % (4.0-6.0) H 01/02/18 15:45 Whole Bld Lactic Acid 1.38 mmol/L (0.60-1.99) 01/03/18 05:03 Calcium 7.9 mg/dL (8.6-10.3) L 01/07/18 04:15 Total Bilirubin 0.6 mg/dL (0.3-1.0) 01/02/18 15:45 AST 16 U/L (13-39) 01/02/18 15:45 ALT 11 U/L (7-52) 01/02/18 15:45 Alkaline Phosphatase 70 U/L (34-104) 01/02/18 15:45 Creatine Kinase 41 U/L (30-223) 01/02/18 15:45 Troponin I 0.01 ng/mL (0.01-0.05) 01/02/18 15:45 B-Natriuretic Peptide 55.9 pg/mL (5.0-100.0) 01/02/18 15:45 Total Protein 6.2 gm/dL (6.0-8.3) 01/02/18 15:45 Albumin 2.8 gm/dL (4.2-5.5) L 01/02/18 15:45 Globulin 3.4 gm/dL 01/02/18 15:45 Albumin/Globulin Ratio 0.8 (1.0-1.8) L 01/02/18 15:45 Triglycerides 96 mg/dL (<150) 01/02/18 15:45 Cholesterol 113 mg/dL (<200) 01/02/18 15:45 LDL Cholesterol Direct 65 mg/dL (75-193) L 01/02/18 15:45 HDL Cholesterol 36 mg/dL (23-92) 01/02/18 15:45 Random Vancomycin 5.5 ug/mL (5.0-40.0) 01/04/18 04:37 - Physical Exam Vitals and I&O: Vital Signs Temp 98.3 F 01/08/18 16:08 Pulse 103 01/08/18 16:08 Resp 22 01/08/18 16:08 BP 124/68 01/08/18 16:08 Pulse Ox 91 01/08/18 16:08 Intake & Output 01/07/18 01/08/18 01/08/18 18:59 06:59 18:59 Intake Total 1811.667 660 450 Output Total 1999 2550 550 Balance -188.333 -1890 -100 Weight (lbs) 68.946 kg 68.039 kg 68.039 kg Intake: Intake, IV Amount 1061.667 250 D5-0.9%Ns 1,000 ml @ 100 811.667 mls/hr IV .Q10H [facility] Rx#: [id number] Vancomycin HCl 1.25 gm In 250 250 Sodium Chloride 0.9% 250 ml @ 165 mls/hr IV Q24HR @0900 [facility] Rx#:[id number] Oral 750 660 200 Output: Urine 1999 2550 550 Other: # Bowel Movements 1 Weight Source Bedscale Bedscale Bedscale Active Medications: Current Medications Acetaminophen (Tylenol) 650 mg PO Q6H PRN PRN Reason: HEADACHE/TEMP ABOVE 100F Stop: 03/03/18 19:11 Albuterol Sulfate (Albuterol 2.5mg/3ml Neb Ud) 2.5 mg HHN Q6HR [facility] Stop: 03/04/18 17:59 Last Admin: 01/08/18 13:16 Dose: 2.5 mg Budesonide (Pulmicort) 0.5 mg HHN BIDRT [facility] Stop: 03/04/18 18:59 Last Admin: 01/08/18 08:41 Dose: 0.5 mg Ciprofloxacin (Cipro) 250 mg PO BID [facility] Stop: 03/08/18 08:59 Last Admin: 01/08/18 08:46 Dose: 250 mg Heparin Sodium (Porcine) (Heparin) 5,000 units SUBQ Q12HR [facility] Stop: 03/03/18 20:59 Last Admin: 01/08/18 08:47 Dose: 5,000 units Potassium Chloride 40 meq/Lidocaine HCl 25 mg/ Sodium Chloride 272.5 mls @ 68 mls/hr IV DAILY PRN PRN Reason: k level less than 3.2 Stop: 03/03/18 19:11 Magnesium Sulfate (Magnesium Sulfate Premix) 2 gm in 50 mls @ 25 mls/hr IV DAILY PRN PRN Reason: Magnesium level less than 1.6 Stop: 03/03/18 19:11 Norepinephrine Bitartrate 4 mg (/ Sodium Chloride) 254 mls @ 30.48 mls/hr IV TITR PRN; Protocol; 8 MCG/MIN PRN Reason: BP MAINTENANCE (PER PROTOCOL) Stop: 03/03/18 20:15 Last Titration: 01/04/18 20:00 Dose: 0 mcg/min, 0 mls/hr Vancomycin HCl 1.25 gm/ Sodium (Chloride) 250 mls @ 165 mls/hr IV Q24HR@0900 [facility] Stop: 03/08/18 09:59 Last Infusion: 01/08/18 11:25 Dose: Infused Lactobacillus Rhamnosus (Culturelle 15b) 1 each PO DAILY [facility] Stop: 03/08/18 08:59 Last Admin: 01/08/18 08:47 Dose: 1 each Lorazepam (Ativan) 1 mg IVP Q4HR PRN; Protocol PRN Reason: Anxiety Stop: 03/03/18 19:11 Magnesium Oxide (Mag-Oxide) 400 mg PO BID PRN PRN Reason: Mg less than 1.9 Stop: 03/03/18 19:11 Methylprednisolone Sodium Succinate (Solu-Medrol) 40 mg IVP Q12H [facility] Stop: 03/09/18 14:59 Last Admin: 01/08/18 15:46 Dose: 40 mg Miscellaneous (Vancomycin Iv Per Pharmacy) 1 ea PRN PRN PRN Reason: PROTOCOL Stop: 03/03/18 19:10 Miscellaneous (Probiotic Screen) 1 ea PRN PRN PRN Reason: PROTOCOL Stop: 03/08/18 08:59 Morphine Sulfate (Morphine) 1 mg IVP Q4HR PRN PRN Reason: Severe Pain Stop: 03/03/18 19:11 Nifedipine (Procardia Xl) 30 mg PO Q24H [facility] Stop: 03/03/18 19:14 Last Admin: 01/07/18 19:02 Dose: 30 mg Ondansetron HCl (Zofran) 4 mg IVP Q6H PRN PRN Reason: Nausea / Vomiting Stop: 03/03/18 19:11 Potassium Chloride (Klor-Con) 40 meq PO DAILY PRN PRN Reason: k level less than 3.5 Stop: 03/03/18 19:11 Simvastatin (Zocor) 10 mg PO HS [facility] Stop: 03/03/18 20:59 Last Admin: 01/07/18 21:39 Dose: 10 mg Tamsulosin HCl (Flomax) 0.4 mg PO HS [facility] Stop: 03/03/18 20:59 Last Admin: 01/07/18 21:39 Dose: 0.4 mg Zolpidem Tartrate (Ambien) 10 mg PO HS PRN PRN Reason: Insomnia Stop: 03/03/18 19:11 Last Admin: 01/03/18 22:31 Dose: 10 mg General: Alert, Cooperative, No acute distress HEENT: Atraumatic, PERRLA, EOMI Neck: Supple, no JVD, no Thyromegaly Cardiovascular: Regular rate, Normal S1, Normal S2 Lungs: Other (has bl rales and congestion) Abdomen: Bowel sounds, Soft, no Distended Extremities: no Clubbing, no Cyanosis Neurological: Normal speech, Normal tone Psych/Mental Status: Mood NL Assessment/Plan - Problem List Patient Problems: All Active Problems SEVERE DYSPNEA WITH UMAÑA CATH PAIN (Acute) - Assessment Assessment: arf sepsis bph malfunction of Umaña - Plan Plan: renal function improving Nutritional Asmnt/Malnutr-PDOC - Dietary Evaluation Malnutrition Findings (Please click <Entered> for more info): Nutritional Asmnt/Malnutrition Start: 01/04/18 16: 19 Text: Status: Complete Freq: Document 01/04/18 16:19 [facility] 01[facility]04[facility]18 [email or web address] Nutritional Asmnt/Malnutrition Patient General Information Nutritional Screening High Risk Diagnosis sepsis, pneumonitis Pertinent Medical Hx/Surgical Hx constipation, COPD, HTN, dyslipidemia, BPH Subjective Information Pt seen sleeping at time of visit. Per RN, pt ate well on pureed diet, good appetitie. Per EMR, PO intake 75% of meals. Per MD note, pt had no difficulty of chewing or swallowing noted. Current Diet Order/ Nutrition Support pureed cardiac Pertinent Medications D5-0.9%ns, piperacillin, vancomycin Pertinent Labs 01/04 Na 133, K 3.5, Cl 99, BUN 43 (improved), Cr 2.0 ( improved), glucose 210 ( increased), Ca 7.7 01/03 glucose 165, POC 179 01/02 glucose 128, A1c 6.5 Nutritional Hx/Data Height 1.75 m Height (Calculated Centimeters) 175.3 Current Weight (lbs) 68.946 kg Weight (Calculated Kilograms) 68.9 Weight (Calculated Grams) 80809.0 [place] Body Weight 160 Body Mass Index (BMI) 22.4 Weight Status Approriate GI Symptoms GI Symptoms None Last BM 01/04 Difficult in: None Skin Integrity/Comment: skin tear to left hand, excoriation to perianal area, reddeded to sacrum Current %PO Good (75-100%) Estimated Nutritional Goals BEE in Kcals: Using Current wt Calories/Kcals/Kg 25-30 Kcals Calculated 5331-6429 Protein: Using Current wt Protein g/k-1.2 Protein Calculated 68-82 Fluid: ml 1700-2040ml (1ml/kcal) Nutritional Problem 1. Problem Problem altered nutrition related lab values Etiology renal dysfunction and hyperglycemia Signs/Symptoms: BUN 43, Cr 2.0, glucose 128- 210 , a1c 6.5 Intervention/Recommendation Comments 1. Continue with current diet as ordered. If blood glucose continue high, consider adding CCHO-60gm diet for better glycemic control. 2. Monitor PO intake, wt, labs and skin integrity 3. F/U as high risk in 2-3 days, 01/06-01/07 Expected Outcomes/Goals Expected Outcomes/Goals 1. PO intake to meet at least 75% of nutritional needs. 2. Wt stability, skin to remain intact, labs to approach WNL.
[2018-01-08] MEDS: NIFEdipine 30 mg ER Tab PO SCH (21:09)
[2018-01-09] MEDS: Albuterol Nebulizer 2.5mg/3mL HHN SCH ×3 (01:07→12:07)
[2018-01-09] MEDS: methylPREDNISolone SS 40 mg Vial IVP SCH (03:34)
[2018-01-09] MEDS: Budesonide 0.5 Mg/2 mL Ud HHN SCH (07:20)
[2018-01-09 08:26] LABS: % BASOPHILS 0.3 % (0.0-2.0); % EOSINOPHILS 0.2 % (0.0-5.0); % LYMPHOCYTES 13.4 % (20.0-50.0); % MONOCYTES 1.4 % (2.0-10.0); % NEUTROPHILS 84.7 % (40.0-80.0); HEMATOCRIT 28.6 % (41.0-60); HEMOGLOBIN 9.6 gm/dL (12-16); LYMPHOCYTE ABSOLUTE 1.3 Th/cmm (1.5-3.0); MEAN CORPUSCULAR HEMOGLOBIN 30.3 pg (27.0-31.0); MEAN CORPUSCULAR HGB CONC 33.7 pg (28.0-36.0); MEAN PLATELET VOLUME 7.1 fl; MONOCYTE ABSOLUTE 0.1 Th/cmm (0.3-1.0); PLATELET COUNT 319 Th/cmm (150-400); RED BLOOD COUNT 3.18 Mil/cmm (3.80-5.80); RED CELL DISTRIBUTION WIDTH 14.1 % (11.5-20.0); WHITE BLOOD COUNT 9.4 Th/cmm (4.8-10.8)
--- NOTE | 2018-01-09 08:37 | General Progress Note ---
Subjective - Review of Systems Service Date: 01/09/18 Subjective: pt doing well Objective - Results Result Diagrams: 01/09/18 08:00 01/07/18 04:15 Recent Labs: Laboratory Last Values WBC 9.4 Th/cmm (4.8-10.8) 01/09/18 08:00 RBC 3.18 Mil/cmm (3.80-5.80) L 01/09/18 08:00 Hgb 9.6 gm/dL (12-16) L 01/09/18 08:00 Hct 28.6 % (41.0-60) L 01/09/18 08:00 MCV 90.0 fl (80-99) 01/09/18 08:00 MCH 30.3 pg (27.0-31.0) 01/09/18 08:00 MCHC Differential 33.7 pg (28.0-36.0) 01/09/18 08:00 RDW 14.1 % (11.5-20.0) 01/09/18 08:00 Plt Count 319 Th/cmm (150-400) 01/09/18 08:00 MPV 7.1 fl 01/09/18 08:00 Neutrophils % 84.7 % (40.0-80.0) H 01/09/18 08:00 Band Neutrophils % 1 % (0-10) 01/07/18 04:15 Lymphocytes % 13.4 % (20.0-50.0) L 01/09/18 08:00 Monocytes % 1.4 % (2.0-10.0) L 01/09/18 08:00 Eosinophils % 0.2 % (0.0-5.0) 01/09/18 08:00 Basophils % 0.3 % (0.0-2.0) 01/09/18 08:00 Neutrophils (Manual) 61 % (40-80) 01/07/18 04:15 Lymphocytes 19 % (20-50) L 01/07/18 04:15 Monocytes 7 % (2-10) 01/07/18 04:15 Eosinophils 12 % (0-5) H 01/07/18 04:15 Basophils 0 % (0-3) 01/02/18 15:45 Platelet Estimate ADEQUATE (NORMAL) 01/03/18 05:03 PT 11.1 SECONDS (9.5-11.5) 01/02/18 16:15 INR 1.07 (0.5-1.4) 01/02/18 16:15 PTT (Actin FS) 28.2 SECONDS (26.0-38.0) 01/02/18 16:15 D-Dimer > 5000 ng/mL (100-400) H 01/02/18 15:45 Specimen Source Arterial 01/02/18 16:05 Sample Site RB 01/02/18 16:05 pH 7.49 (7.35-7.45) H 01/02/18 16:05 pCO2 32.0 mmHg (35.0-45.0) L 01/02/18 16:05 pO2 262.0 mmHg (80.0-100.0) H 01/02/18 16:05 HCO3 26.2 mEq/L (20.0-26.0) H 01/02/18 16:05 Base Excess 1.6 mEq/L (-3.0-3.0) 01/02/18 16:05 O2 Saturation 100.0 % (92.0-100.0) 01/02/18 16:05 Norm Test NA 01/02/18 16:05 Vent Rate NA 01/02/18 16:05 Inspired O2 100 01/02/18 16:05 Tidal Volume NA 01/02/18 16:05 PEEP NA 01/02/18 16:05 Pressure (ins/psv/peep) NA 01/02/18 16:05 Critical Value E.LUZ 01/02/18 16:05 Sodium 136 mEq/L (136-145) 01/07/18 04:15 Potassium 3.5 mEq/L (3.5-5.1) 01/07/18 04:15 Chloride 105 mEq/L (98-107) 01/07/18 04:15 Carbon Dioxide 26.1 mEq/L (21.0-31.0) 01/07/18 04:15 Anion Gap 8.4 (7.0-16.0) 01/07/18 04:15 BUN 11 mg/dL (7-25) 01/07/18 04:15 Creatinine 0.7 mg/dL (0.7-1.3) 01/07/18 04:15 Est GFR ( Amer) TNP 01/07/18 04:15 Est GFR (Non-Af Amer) TNP 01/07/18 04:15 BUN/Creatinine Ratio 15.7 01/07/18 04:15 Glucose 131 mg/dL (70-105) H 01/07/18 04:15 POC Glucose 179 MG/DL (70 - 105) H 01/03/18 00:32 Hemoglobin A1c % 6.5 % (4.0-6.0) H 01/02/18 15:45 Whole Bld Lactic Acid 1.38 mmol/L (0.60-1.99) 01/03/18 05:03 Calcium 7.9 mg/dL (8.6-10.3) L 01/07/18 04:15 Total Bilirubin 0.6 mg/dL (0.3-1.0) 01/02/18 15:45 AST 16 U/L (13-39) 01/02/18 15:45 ALT 11 U/L (7-52) 01/02/18 15:45 Alkaline Phosphatase 70 U/L (34-104) 01/02/18 15:45 Creatine Kinase 41 U/L (30-223) 01/02/18 15:45 Troponin I 0.01 ng/mL (0.01-0.05) 01/02/18 15:45 B-Natriuretic Peptide 55.9 pg/mL (5.0-100.0) 01/02/18 15:45 Total Protein 6.2 gm/dL (6.0-8.3) 01/02/18 15:45 Albumin 2.8 gm/dL (4.2-5.5) L 01/02/18 15:45 Globulin 3.4 gm/dL 01/02/18 15:45 Albumin/Globulin Ratio 0.8 (1.0-1.8) L 01/02/18 15:45 Triglycerides 96 mg/dL (<150) 01/02/18 15:45 Cholesterol 113 mg/dL (<200) 01/02/18 15:45 LDL Cholesterol Direct 65 mg/dL (75-193) L 01/02/18 15:45 HDL Cholesterol 36 mg/dL (23-92) 01/02/18 15:45 Random Vancomycin 5.5 ug/mL (5.0-40.0) 01/04/18 04:37 - Physical Exam Vitals and I&O: Vital Signs Temp 98.0 F 01/09/18 07:55 Pulse 99 01/09/18 07:55 Resp 20 01/09/18 07:55 BP 128/74 01/09/18 07:55 Pulse Ox 100 01/09/18 07:55 Intake & Output 01/08/18 01/09/18 01/09/18 18:59 06:59 18:59 Intake Total 690 360 Output Total 600 900 Balance 90 -540 Weight (lbs) 68.039 kg 74.503 kg Intake: Intake, IV Amount 250 Vancomycin HCl 1.25 gm In 250 Sodium Chloride 0.9% 250 ml @ 165 mls/hr IV Q24HR @0900 [facility] Rx#:[id number] Oral 440 360 Output: Urine 600 900 Other: # Bowel Movements 1 1 Weight Source Bedscale Bedscale Active Medications: Current Medications Acetaminophen (Tylenol) 650 mg PO Q6H PRN PRN Reason: HEADACHE/TEMP ABOVE 100F Stop: 03/03/18 19:11 Albuterol Sulfate (Albuterol 2.5mg/3ml Neb Ud) 2.5 mg HHN Q6HR [facility] Stop: 03/04/18 17:59 Last Admin: 01/09/18 07:18 Dose: 2.5 mg Budesonide (Pulmicort) 0.5 mg HHN BIDRT [facility] Stop: 03/04/18 18:59 Last Admin: 01/09/18 07:20 Dose: 0.5 mg Ciprofloxacin (Cipro) 250 mg PO BID [facility] Stop: 03/08/18 08:59 Last Admin: 01/08/18 16:30 Dose: 250 mg Heparin Sodium (Porcine) (Heparin) 5,000 units SUBQ Q12HR [facility] Stop: 03/03/18 20:59 Last Admin: 01/08/18 21:09 Dose: 5,000 units Potassium Chloride 40 meq/Lidocaine HCl 25 mg/ Sodium Chloride 272.5 mls @ 68 mls/hr IV DAILY PRN PRN Reason: k level less than 3.2 Stop: 03/03/18 19:11 Magnesium Sulfate (Magnesium Sulfate Premix) 2 gm in 50 mls @ 25 mls/hr IV DAILY PRN PRN Reason: Magnesium level less than 1.6 Stop: 03/03/18 19:11 Norepinephrine Bitartrate 4 mg (/ Sodium Chloride) 254 mls @ 30.48 mls/hr IV TITR PRN; Protocol; 8 MCG/MIN PRN Reason: BP MAINTENANCE (PER PROTOCOL) Stop: 03/03/18 20:15 Last Titration: 01/04/18 20:00 Dose: 0 mcg/min, 0 mls/hr Vancomycin HCl 1.25 gm/ Sodium (Chloride) 250 mls @ 165 mls/hr IV Q24HR@0900 [facility] Stop: 03/08/18 09:59 Last Infusion: 01/08/18 11:25 Dose: Infused Lactobacillus Rhamnosus (Culturelle 15b) 1 each PO DAILY [facility] Stop: 03/08/18 08:59 Last Admin: 01/08/18 08:47 Dose: 1 each Lorazepam (Ativan) 1 mg IVP Q4HR PRN; Protocol PRN Reason: Anxiety Stop: 03/03/18 19:11 Magnesium Oxide (Mag-Oxide) 400 mg PO BID PRN PRN Reason: Mg less than 1.9 Stop: 03/03/18 19:11 Methylprednisolone Sodium Succinate (Solu-Medrol) 40 mg IVP Q12H [facility] Stop: 03/09/18 14:59 Last Admin: 01/09/18 03:34 Dose: 40 mg Miscellaneous (Vancomycin Iv Per Pharmacy) 1 ea PRN PRN PRN Reason: PROTOCOL Stop: 03/03/18 19:10 Miscellaneous (Probiotic Screen) 1 ea PRN PRN PRN Reason: PROTOCOL Stop: 03/08/18 08:59 Morphine Sulfate (Morphine) 1 mg IVP Q4HR PRN PRN Reason: Severe Pain Stop: 03/03/18 19:11 Nifedipine (Procardia Xl) 30 mg PO Q24H [facility] Stop: 03/03/18 19:14 Last Admin: 01/08/18 21:09 Dose: 30 mg Ondansetron HCl (Zofran) 4 mg IVP Q6H PRN PRN Reason: Nausea / Vomiting Stop: 03/03/18 19:11 Potassium Chloride (Klor-Con) 40 meq PO DAILY PRN PRN Reason: k level less than 3.5 Stop: 03/03/18 19:11 Simvastatin (Zocor) 10 mg PO HS [facility] Stop: 03/03/18 20:59 Last Admin: 01/08/18 21:08 Dose: 10 mg Tamsulosin HCl (Flomax) 0.4 mg PO HS [facility] Stop: 03/03/18 20:59 Last Admin: 01/08/18 21:08 Dose: 0.4 mg Zolpidem Tartrate (Ambien) 10 mg PO HS PRN PRN Reason: Insomnia Stop: 03/03/18 19:11 Last Admin: 01/03/18 22:31 Dose: 10 mg General: Alert, Cooperative, No acute distress HEENT: Atraumatic, PERRLA, EOMI Neck: Supple, no JVD, no Thyromegaly Cardiovascular: Regular rate, Normal S1, Normal S2 Lungs: Other (has bl rales and congestion) Abdomen: Bowel sounds, Soft, no Distended Extremities: no Clubbing, no Cyanosis Neurological: Normal speech, Normal tone Psych/Mental Status: Mood NL Assessment/Plan - Problem List Patient Problems: All Active Problems SEVERE DYSPNEA WITH UMAÑA CATH PAIN (Acute) - Assessment Assessment: arf sepsis bph malfunction of Umaña - Plan Plan: renal function improving Nutritional Asmnt/Malnutr-PDOC - Dietary Evaluation Malnutrition Findings (Please click <Entered> for more info): Nutritional Asmnt/Malnutrition Start: 01/04/18 16: 19 Text: Status: Complete Freq: Document 01/04/18 16:19 LCHENG (Rec: 01/04/18 16:37 LCHENG [id number]) Nutritional Asmnt/Malnutrition Patient General Information Nutritional Screening High Risk Diagnosis sepsis, pneumonitis Pertinent Medical Hx/Surgical Hx constipation, COPD, HTN, dyslipidemia, BPH Subjective Information Pt seen sleeping at time of visit. Per RN, pt ate well on pureed diet, good appetitie. Per EMR, PO intake 75% of meals. Per MD note, pt had no difficulty of chewing or swallowing noted. Current Diet Order/ Nutrition Support pureed cardiac Pertinent Medications D5-0.9%ns, piperacillin, vancomycin Pertinent Labs 01/04 Na 133, K 3.5, Cl 99, BUN 43 (improved), Cr 2.0 ( improved), glucose 210 ( increased), Ca 7.7 01/03 glucose 165, POC 179 01/02 glucose 128, A1c 6.5 Nutritional Hx/Data Height 1.75 m Height (Calculated Centimeters) 175.3 Current Weight (lbs) 68.946 kg Weight (Calculated Kilograms) 68.9 Weight (Calculated Grams) 82552.0 [place] Body Weight 160 Body Mass Index (BMI) 22.4 Weight Status Approriate GI Symptoms GI Symptoms None Last BM 01/04 Difficult in: None Skin Integrity/Comment: skin tear to left hand, excoriation to perianal area, reddeded to sacrum Current %PO Good (75-100%) Estimated Nutritional Goals BEE in Kcals: Using Current wt Calories/Kcals/Kg 25-30 Kcals Calculated 6667-1767 Protein: Using Current wt Protein g/k-1.2 Protein Calculated 68-82 Fluid: ml 1700-2040ml (1ml/kcal) Nutritional Problem 1. Problem Problem altered nutrition related lab values Etiology renal dysfunction and hyperglycemia Signs/Symptoms: BUN 43, Cr 2.0, glucose 128- 210 , a1c 6.5 Intervention/Recommendation Comments 1. Continue with current diet as ordered. If blood glucose continue high, consider adding CCHO-60gm diet for better glycemic control. 2. Monitor PO intake, wt, labs and skin integrity 3. F/U as high risk in 2-3 days, 01/06-01/07 Expected Outcomes/Goals Expected Outcomes/Goals 1. PO intake to meet at least 75% of nutritional needs. 2. Wt stability, skin to remain intact, labs to approach WNL.
[2018-01-09 08:40] LABS: ALB/GLOB RATIO 0.8 (1.0-1.8); ALBUMIN 2.8 gm/dL (4.2-5.5); ALKALINE PHOSPHATASE 69 U/L (34-104); ANION GAP 12.3 (7.0-16.0); BILIRUBIN,TOTAL 0.4 mg/dL (0.3-1.0); BUN - UREA NITROGEN 17 mg/dL (7-25); CALCIUM SERUM 8.3 mg/dL (8.6-10.3); CARBON DIOXIDE 28.4 mEq/L (21.0-31.0); CHLORIDE 99 mEq/L (98-107); CREATININE - SERUM 0.8 mg/dL (0.7-1.3); GLUCOSE 163 mg/dL (70-105); POTASSIUM SERUM 3.7 mEq/L (3.5-5.1); SGOT 17 U/L (13-39); SGPT/ALT 18 U/L (7-52); SODIUM SERUM 136 mEq/L (136-145); TOTAL PROTEIN,SERUM 6.4 gm/dL (6.0-8.3)
[2018-01-09] MEDS: Lactobacillus Rhamnosus GG 15 Billion CFU CAP.SPRINK PO SCH (09:06)
--- NOTE | 2018-01-09 11:31 | Discharge Summary ---
DATE OF DISCHARGE: 01/09/2018 DATE OF ADMISSION: 01/02/2018 DATE OF DISCHARGE TO CARE HOME FACILITY: 01/09/2018. CAUSE OF ADMISSION: The patient is a pleasant 82-year-old male. He [facility]. He was found to have severe weakness along with fevers, decreased appetite and very low blood pressure, 911 was called and he presented to the ER where he was found to have acute respiratory failure and septic shock. ADMITTING DIAGNOSES: 1. Septic shock. 2. Aspiration pneumonia. 3. Vasomotor nephropathy. 4. Anemia of chronic illness. 5. Acute urinary retention. 6. Acute respiratory failure. 7. Hyponatremia. DISCHARGE DIAGNOSES: 1. Septic shock due to methicillin-resistant Staphylococcus aureus bacteremia. 2. Acute urinary retention with benign prostatic hypertrophy. 3. Aspiration pneumonia. 4. Vasomotor nephropathy. 5. Anemia of chronic illness. 6. Acute respiratory failure. 7. Hyponatremia. 8. Moderate malnutrition. SUMMARY OF HOSPITAL COURSE: The patient was admitted to ICU. Dr. Blount was the urologist in the case. He was kind enough to come see the patient on 01/03/2018 and check. The Glez was reinserted by the assembler 1st shift and the patient had excellent urine output. He had over 1 liter output since then he has been making appropriate amount of urine. He was placed on IV vancomycin and Zosyn, which was later changed to IV vancomycin and p.o. Cipro by ID. Blood culture was positive for MRSA. He has been afebrile. He was off the Levophed drip on January 04 and he was moved out of the ICU, even though he stayed in the ICU, he has been tele status for last 3 days. He has had no headaches. His confusion has resolved. He has been having family visit every year. The daughter does not want the patient to go to the previous facility, so they have [facility]. There is no dysuria, no psychosis. Nephrology and Pulmonary has seen the patient as well along with ID and Urology. The patient is stable to be discharged back to [facility]. PHYSICAL EXAMINATION: VITAL SIGNS: Temperature is 98 degrees, heart rate is 99, respirations 18, blood pressure 128/74. Currently, no pain. GENERAL: No acute distress, awake, alert, pleasant. HEENT: No acute issues. NECK: Trachea is midline. CARDIOVASCULAR: Regular rate and rhythm. SKIN: No rash. EXTREMITIES: No edema. PSYCHIATRIC: No psychosis or hallucinations. LABORATORY DATA: Sodium 136, potassium 3.7, chloride 99, bicarbonate 28.4, BUN 17, creatinine 0.8, glucose 163, calcium is 8.3, albumin is 2.8. White count is down to 9.4, hemoglobin is 9.6, platelet count is 319,000. Blood cultures positive for MRSA and nares also positive. PROGNOSIS: Fair. ACTIVITY: As tolerated. DISPOSITION: He is being discharged to [facility]. MEDICATIONS: All medication reviewed and reconciled. CONSULTS: As mentioned above, Dr. Jerel Plascencia for ID, Dr. Nielsen for Pulmonary, Dr. Blount for Urology and Dr. Brady for Nephrology. PROCEDURES: None. DIET: Cardiac diet. JOB# [id number]
== END 2018-01-09 13:10 | DRG 871 ==
LOC: ER 15:18 → ICU 18:40 → TELE 01-05 09:24 → ICU 01-08 08:00 → TELE 01-08 16:04 → MSI 01-09 11:39
PROVIDERS: ADMIT General Practice; ATTEND General Practice
DX: A41.02 Sepsis due to Methicillin resistant Staphylococcus aureus (principal); R65.21 Severe sepsis with septic shock; J69.0 Pneumonitis due to inhalation of food and vomit; N18.6 End stage renal disease; N17.0 Acute kidney failure with tubular necrosis; J96.21 Acute and chronic respiratory failure with hypoxia; E87.1 Hypo-osmolality and hyponatremia; I13.2 Hypertensive heart and chronic kidney disease with heart failure and with stage 5 chronic kidney disease, or end stage renal disease; N13.8 Other obstructive and reflux uropathy; E44.0 Moderate protein-calorie malnutrition; N12 Tubulo-interstitial nephritis, not specified as acute or chronic; R33.9 Retention of urine, unspecified; T83.018A Breakdown (mechanical) of other urinary catheter, initial encounter; M17.0 Bilateral primary osteoarthritis of knee; E78.5 Hyperlipidemia, unspecified; J84.10 Pulmonary fibrosis, unspecified; J47.9 Bronchiectasis, uncomplicated; I50.9 Heart failure, unspecified; I25.10 Atherosclerotic heart disease of native coronary artery without angina pectoris; F17.210 Nicotine dependence, cigarettes, uncomplicated; E87.5 Hyperkalemia; E11.22 Type 2 diabetes mellitus with diabetic chronic kidney disease; D63.8 Anemia in other chronic diseases classified elsewhere; N40.1 Benign prostatic hyperplasia with lower urinary tract symptoms; R33.8 Other retention of urine; Y83.8 Other surgical procedures as the cause of abnormal reaction of the patient, or of later complication, without mention of misadventure at the time of the procedure; Y92.89 Other specified places as the place of occurrence of the external cause; Z68.24 Body mass index [BMI] 24.0-24.9, adult; Z83.3 Family history of diabetes mellitus; Z82.49 Family history of ischemic heart disease and other diseases of the circulatory system; Z98.890 Other specified postprocedural states; Z95.0 Presence of cardiac pacemaker
CPT/HCPCS: 36415-UA; 36600-90; 71045-TC; 71250-TC; 80048-TC; 80053-TC; 80061-TC; 80202-TC; 81003-TC; 82550-TC; 82803-TC; 82948-90; 83036-90; 83605; 83880-TC; 84484-TC; 85007-TC; 85025-TC; 85027-TC; 85379-TC; 85610-TC; 85730-TC; 87086-90; 93005; 93970-TC-50; 94640; 94760; 96375; J1644; J1940; J1956; J2001; J2543; J2920; J3370; J3480; J7030; J7042; J7613; X6452; Z7610